=== PATIENT | female | born 1960 | race Caucasian/White ===

== ENCOUNTER 2020-02-22 18:20 | Emergency (ER) | payer MEDICARE, MEDICAID, SELFPAY ==
--- NOTE | 2020-02-22 | XR_ITS ---
EXAMINATION: XR CHEST CLINICAL INFORMATION: Drug overdose COMPARISON: None TECHNIQUE: Frontal view of the chest was obtained. FINDINGS: No significant abnormality is noted involving the heart, lungs, mediastinum, bony thorax or soft tissues. Bibasilar minimal atelectasis is present. IMPRESSION: No acute intrathoracic disease.
--- NOTE | 2020-02-22 | ECG_ITS ---
Test Reason : OVERDOSE Blood Pressure : / mmHG Vent. Rate : 076 BPM Atrial Rate : 076 BPM P-R Int : 150 ms QRS Dur : 078 ms QT Int : 382 ms P-R-T Axes : 035 049 037 degrees QTc Int : 429 ms Poor data quality, interpretation may be adversely affected Normal sinus rhythm Normal ECG When compared with ECG of 19-APR-2019 09:29, Premature ventricular complexes are no longer Present Referred By: Curtis Moss Electronically Signed By:NIKKI KNIGHT
[2020-02-22 18:31] VITALS: BP 110/64; BP 111/71; PULSE 86; PULSE 94; RESP 17; TEMP 36.8; O2SAT 94; O2SAT 96; BMI 28.7
--- NOTE | 2020-02-22 19:06 | ED_ITS ---
HPI - Overdose General Chief Complaint: Overdose Stated Complaint: AMS Time Seen by Provider: 02/22/20 19:02 Source: patient and EMS Mode of arrival: EMS History of Present Illness HPI Narrative: patient is a vague and poor historian unable to obtain history From her. As per EMS patient walked to the fire station and stated she took So ma. Will need to continue evaluation. complaint: intentional overdose Onset (ago): hour(s) Intent: unwilling to say Related Data Home Medications Medication Instructions Recorded Confirmed atorvastatin 20 mg PO BEDTIME 02/23/20 02/23/20 divalproex [Depakote ER] 250 mg PO DAILY 02/23/20 02/23/20 Allergies Allergy/AdvReac Type Severity Reaction Status Date / Time codeine [CODEINE] Allergy Mild RASH Verified 02/23/20 00:22 Chantix Allergy Unknown headaches Uncoded 01/10/20 00:00 chantix Allergy Unknown Unknown Uncoded 02/23/20 00:22 Review of Systems Review of Systems: Yes Unobtainable due to mental status [facility] Past Medical History [facility] Narrative: Unable to obtain family history due to altered mental status Medical History Bipolar 1 disorder Social History Social History Alcohol intake: former Smoking Status: Never smoker Use of substances other than those prescribed or required for medical reasons: No Advance Directives: No Advance Directives Information Provided: No Physical Exam Vital Signs and I&O and Narrative: Vital Signs and I&O: Vital Signs Temp 97.6 F 02/22/20 21:53 Pulse 82 02/23/20 01:01 Resp 16 02/23/20 01:01 BP 131/78 02/23/20 01:01 Pulse Ox 99 02/23/20 01:01 Intake & Output 02/22/20 02/22/20 02/23/20 06:59 18:59 06:59 Intake Total 1000 / 1000 Balance 1000 / 1000 Weight 80.739 kg Intake: Intake, IV Amoun t 1000 / 1000 0.9 % Sodium C hloride 1,000 ml 1000 / 1000 @ 999 mls/hr I VCONT .Q1H1M KALANI Rx#:[id number] Body Mass Index 28.7 vital signs reviewed Const: Other: slow to arouse General: lethargic Nutritional Appearance: obese Orientation/consciousness: lethargic HENMT: Head: Yes normal to inspection Mouth: Normal oral and palatal mucosa present Eyes: Pupils: Equal, round and reactive pupils present EOM: EOMs intact bilaterally Neck: Neck: Yes normal visual inspection Chest: Chest palpation & inspection: normal inspection of the chest Resp: Effort & Inspection: normal respiratory effort, normal respiratory pattern, no audible wheezes and decreased respiratory effort Cardio: Jugular venous distension: no JVD Rhythm: regular rhythm Heart sounds: no gallops and no murmurs Peripheral pulses: Peripheral pulses 2+ t hroughout GI: Inspection: Yes normal to inspection Back/Spine/Pelvis: Thoracic/Lumbar Spine: thoracic and lumbar spine normal to inspection Skin: Rashes: no rashes Wounds: no wounds Neuro: Other: patient needed arousing with stimulus. But once awake patient is able to look at me in follow me however is not responding to questions. She is following simple commands. Cranial nerves: Yes Equal, round and reactive pupils present Comatose Patient: No decerebrate rigidity and No decorticate rigidity Pupils: Normal pupillary reactivity/response: bilateral and Dilated: bilateral Extrem: Right upper extremity: normal to inspection Psych: Appearance: disheveled Course Course Hospital Course: Differential diagnosis includes electrolyte abnormality renal failure Reevaluation(s) Reevaluation #1: throughout ER stay patient mental status improved. 4 hour Tylenol levels negative. Will need to stay and see crisis for overdose patient denies suicidal to me however with overdose will need to evaluated Time: 00:35 MDM - Overdose Lab Data Attestation: I reviewed the patient's lab results. Result diagrams: 02/22/20 19:56 02/22/20 19:56 Labs: Lab Results 02/22/20 02/22/20 02/22/20 Range/Units 19:56 19:56 19:56 WBC 8.2 (4.8-10.8) X10*3/uL RBC 4.46 (4.20-5.50) X10*6/uL Hgb 13.1 (12.0-16.0) g/dl Hct 40.0 (37-47) % MCV 89.7 (80-98) fL MCH 29.4 (27.0-33.0) pg MCHC 32.8 (31.0-35.0) g/dl RDW 13.4 (11.0-16.0) % Plt Count 294 (160-400) X10*3/uL MPV 12.2 (9.4-12.3) fL Immature Gran % (Auto) 0.1 (0.0-0.4) % Neut % (Auto) 44.5 L (45-73) % Lymph % (Auto) 44.5 H (20-40) % [place] % (Auto) 7.1 (2-11) % Eos % (Auto) 2.8 (0-4) % Baso % (Auto) 1.0 (0-2) % Neut # (Auto) 3.7 (2.0-8.3) X10*3/uL Lymph # (Auto) 3.7 (1.2-4.9) X10*3/uL [place] # (Auto) 0.6 (0.1-1.2) X10*3/uL Eos # (Auto) 0.2 (0.0-0.4) X10*3/uL Baso # (Auto) 0.1 (0.0-0.2) X10*3/uL Abs Immat Gran (auto) 0.01 (0.00-0.03) X10*3/uL Absolute Nucleated RBC 0.000 (0.0-0.012) X10*3/uL Nucleated RBC % (auto) 0.0 (0.0-0.2) /100WBC Hold Blue Top SEE NOTE Sodium 143 (135-145) mmol/L Potassium 3.7 (3.3-5.1) mmol/l Chloride 103 (96-108) mmol/L Carbon Dioxide 28 (22-29) mmol/L Anion Gap 16 (12-20) BUN 14 (9-16) mg/dL Creatinine 1.10 (0.5-1.4) mg/dL Estim Creat Clear Calc 59.7 Estimated GFR 51 POC Glucose (60-115) mg/dL Random Glucose 96 (60-115) mg/dL Lactic Acid (0.5-2.0) mmol/L Calcium 10.2 (8.4-10.2) mg/dL Total Bilirubin 0.7 (0.0-1.0) mg/dL Direct Bilirubin 0.3 (0.0-0.5) mg/dL AST 32 H (5-31) U/L ALT 34 H (0-31) U/L Alkaline Phosphatase 84 (39-117) U/L Ammonia (13-55) umol/L Total Protein 8.1 H (6.5-8.0) g/dL Albumin 5.1 H (3.5-5.0) g/dL Lipase 11 (8-78) U/L Salicylates (15-30) mg/dL Acetaminophen (<30) mcg/mL [place] (0.60-1.20) mmol/L Ethyl Alcohol mg/dL 02/22/20 02/22/20 02/22/20 Range/Units 19:56 19:56 19:56 WBC (4.8-10.8) X10*3/uL RBC (4.20-5.50) X10*6/uL Hgb (12.0-16.0) g/dl Hct (37-47) % MCV (80-98) fL MCH (27.0-33.0) pg MCHC (31.0-35.0) g/dl RDW (11.0-16.0) % Plt Count (160-400) X10*3/uL MPV (9.4-12.3) fL Immature Gran % (Auto) (0.0-0.4) % Neut % (Auto) (45-73) % Lymph % (Auto) (20-40) % [place] % (Auto) (2-11) % Eos % (Auto) (0-4) % Baso % (Auto) (0-2) % Neut # (Auto) (2.0-8.3) X10*3/uL Lymph # (Auto) (1.2-4.9) X10*3/uL [place] # (Auto) (0.1-1.2) X10*3/uL Eos # (Auto) (0.0-0.4) X10*3/uL Baso # (Auto) (0.0-0.2) X10*3/uL Abs Immat Gran (auto) (0.00-0.03) X10*3/uL Absolute Nucleated RBC (0.0-0.012) X10*3/uL Nucleated RBC % (auto) (0.0-0.2) /100WBC Hold Blue Top Sodium (135-145) mmol/L Potassium (3.3-5.1) mmol/l Chloride (96-108) mmol/L Carbon Dioxide (22-29) mmol/L Anion Gap (12-20) BUN (9-16) mg/dL Creatinine (0.5-1.4) mg/dL Estim Creat Clear Calc Estimated GFR POC Glucose (60-115) mg/dL Random Glucose (60-115) mg/dL Lactic Acid 1.1 (0.5-2.0) mmol/L Calcium (8.4-10.2) mg/dL Total Bilirubin (0.0-1.0) mg/dL Direct Bilirubin (0.0-0.5) mg/dL AST (5-31) U/L ALT (0-31) U/L Alkaline Phosphatase (39-117) U/L Ammonia 40 (13-55) umol/L Total Protein (6.5-8.0) g/dL Albumin (3.5-5.0) g/dL Lipase (8-78) U/L Salicylates (15-30) mg/dL Acetaminophen (<30) mcg/mL [place] (0.60-1.20) mmol/L Ethyl Alcohol < 10 mg/dL 02/22/20 02/22/20 02/22/20 Range/Units 19:56 19:56 21:25 WBC (4.8-10.8) X10*3/uL RBC (4.20-5.50) X10*6/uL Hgb (12.0-16.0) g/dl Hct (37-47) % MCV (80-98) fL MCH (27.0-33.0) pg MCHC (31.0-35.0) g/dl RDW (11.0-16.0) % Plt Count (160-400) X10*3/uL MPV (9.4-12.3) fL Immature Gran % (Auto) (0.0-0.4) % Neut % (Auto) (45-73) % Lymph % (Auto) (20-40) % [place] % (Auto) (2-11) % Eos % (Auto) (0-4) % Baso % (Auto) (0-2) % Neut # (Auto) (2.0-8.3) X10*3/uL Lymph # (Auto) (1.2-4.9) X10*3/uL [place] # (Auto) (0.1-1.2) X10*3/uL Eos # (Auto) (0.0-0.4) X10*3/uL Baso # (Auto) (0.0-0.2) X10*3/uL Abs Immat Gran (auto) (0.00-0.03) X10*3/uL Absolute Nucleated RBC (0.0-0.012) X10*3/uL Nucleated RBC % (auto) (0.0-0.2) /100WBC Hold Blue Top Sodium (135-145) mmol/L Potassium (3.3-5.1) mmol/l Chloride (96-108) mmol/L Carbon Dioxide (22-29) mmol/L Anion Gap (12-20) BUN (9-16) mg/dL Creatinine (0.5-1.4) mg/dL Estim Creat Clear Calc Estimated GFR POC Glucose 91 (60-115) mg/dL Random Glucose (60-115) mg/dL Lactic Acid (0.5-2.0) mmol/L Calcium (8.4-10.2) mg/dL Total Bilirubin (0.0-1.0) mg/dL Direct Bilirubin (0.0-0.5) mg/dL AST (5-31) U/L ALT (0-31) U/L Alkaline Phosphatase (39-117) U/L Ammonia (13-55) umol/L Total Protein (6.5-8.0) g/dL Albumin (3.5-5.0) g/dL Lipase (8-78) U/L Salicylates (15-30) mg/dL Acetaminophen 2 (<30) mcg/mL [place] < 0.10 L (0.60-1.20) mmol/L Ethyl Alcohol mg/dL 02/22/20 02/22/20 02/23/20 Range/Units 23:50 23:50 00:01 WBC (4.8-10.8) X10*3/uL RBC (4.20-5.50) X10*6/uL Hgb (12.0-16.0) g/dl Hct (37-47) % MCV (80-98) fL MCH (27.0-33.0) pg MCHC (31.0-35.0) g/dl RDW (11.0-16.0) % Plt Count (160-400) X10*3/uL MPV (9.4-12.3) fL Immature Gran % (Auto) (0.0-0.4) % Neut % (Auto) (45-73) % Lymph % (Auto) (20-40) % [place] % (Auto) (2-11) % Eos % (Auto) (0-4) % Baso % (Auto) (0-2) % Neut # (Auto) (2.0-8.3) X10*3/uL Lymph # (Auto) (1.2-4.9) X10*3/uL [place] # (Auto) (0.1-1.2) X10*3/uL Eos # (Auto) (0.0-0.4) X10*3/uL Baso # (Auto) (0.0-0.2) X10*3/uL Abs Immat Gran (auto) (0.00-0.03) X10*3/uL Absolute Nucleated RBC (0.0-0.012) X10*3/uL Nucleated RBC % (auto) (0.0-0.2) /100WBC Hold Blue Top Sodium (135-145) mmol/L Potassium (3.3-5.1) mmol/l Chloride (96-108) mmol/L Carbon Dioxide (22-29) mmol/L Anion Gap (12-20) BUN (9-16) mg/dL Creatinine (0.5-1.4) mg/dL Estim Creat Clear Calc Estimated GFR POC Glucose 144 H (60-115) mg/dL Random Glucose (60-115) mg/dL Lactic Acid (0.5-2.0) mmol/L Calcium (8.4-10.2) mg/dL Total Bilirubin 0.6 (0.0-1.0) mg/dL Direct Bilirubin 0.2 (0.0-0.5) mg/dL AST 25 (5-31) U/L ALT 25 (0-31) U/L Alkaline Phosphatase 72 (39-117) U/L Ammonia (13-55) umol/L Total Protein 6.6 (6.5-8.0) g/dL Albumin 4.2 (3.5-5.0) g/dL Lipase (8-78) U/L Salicylates < 5.0 L (15-30) mg/dL Acetaminophen 1 (<30) mcg/mL [place] (0.60-1.20) mmol/L Ethyl Alcohol mg/dL ECG Data Attestation: I personally reviewed and interpreted this ECG as follows: Pacemaker model: Normal sinus rhythm at 76 rate. Normal axis. normal QRS. Discharge Plan Discharge Prescriptions: No Action divalproex [Depakote ER] 250 mg Tablet Extended Release 24 Hr 250 mg PO DAILY RF: 0 atorvastatin 20 mg Tablet 20 mg PO BEDTIME RF: 0
[2020-02-22 20:00] VITALS: BP 104/67; PULSE 80; RESP 22; TEMP 36.4; O2SAT 97
[2020-02-22 20:10] LABS: MANUAL DIFF FLAG NO
[2020-02-22 20:12] LABS: Basophils Absolute Auto 0.1 X10*3/uL (0.0-0.2); Eosinophils Absolute Auto 0.2 X10*3/uL (0.0-0.4); Eosinophils Percent Auto 2.8 % (0-4); Hemoglobin 13.1 g/dl (12.0-16.0); Imm Gran Abs Auto 0.01 X10*3/uL (0.00-0.03); Imm Gran Pct Auto 0.1 % (0.0-0.4); Lymphocytes Absolute Auto 3.7 X10*3/uL (1.2-4.9); Lymphocytes Percent Auto 44.5 % (20-40); Mean Corpuscular HGB Conc 32.8 g/dl (31.0-35.0); Mean Corpuscular Hemoglobin 29.4 pg (27.0-33.0); Mean Corpuscular Volume 89.7 fL (80-98); Mean Platelet Volume 12.2 fL (9.4-12.3); Monocytes Absolute Auto 0.6 X10*3/uL (0.1-1.2); Monocytes Percent Auto 7.1 % (2-11); Neutrophils Absolute Auto 3.7 X10*3/uL (2.0-8.3); Neutrophils Percent Auto 44.5 % (45-73); Platelet Count 294 X10*3/uL (160-400); Red Blood Count 4.46 X10*6/uL (4.20-5.50); Red Cell Distribution Width 13.4 % (11.0-16.0); White Blood Count 8.2 X10*3/uL (4.8-10.8)
[2020-02-22] MEDS: 0.9 % Sodium Chloride 1,000 ML 999 ML IVCONT (20:13)
--- NOTE | 2020-02-22 20:32 | PC.NURSE ---
iv inserted by ems right arm patient and benign
[2020-02-22 20:42] LABS: Ethanol < 10 mg/dL; Lactic Acid 1.1 mmol/L (0.5-2.0)
[2020-02-22 20:45] LABS: Acetaminophen LAB 2 mcg/mL (<30)
[2020-02-22 20:46] LABS: Alanine Aminotransferase 34 U/L (0-31); Albumin Level 5.1 g/dL (3.5-5.0); Alkaline Phosphatase 84 U/L (39-117); Anion Gap 16 (12-20); Aspartate Amino Transferase 32 U/L (5-31); Bilirubin Direct 0.3 mg/dL (0.0-0.5); Bilirubin Total 0.7 mg/dL (0.0-1.0); Blood Urea Nitrogen 14 mg/dL (9-16); Calcium 10.2 mg/dL (8.4-10.2); Carbon Dioxide 28 mmol/L (22-29); Chloride 103 mmol/L (96-108); Creatinine Clr Calc Pharmacy 59.7; Estimated Glomerular Filt Rate 51; Glucose Random 96 mg/dL (60-115); Lipase 11 U/L (8-78); Potassium 3.7 mmol/l (3.3-5.1); Sodium 143 mmol/L (135-145); Total Protein 8.1 g/dL (6.5-8.0)
[2020-02-22 20:49] LABS: Ammonia 40 umol/L (13-55)
[2020-02-22 21:30] LABS: Glucose, Whole Blood 91 mg/dL (60-115)
[2020-02-22 21:53] VITALS: BP 117/76; PULSE 68; RESP 20; TEMP 36.4; O2SAT 99
[2020-02-22 22:30] LABS: Lithium < 0.10 mmol/L (0.60-1.20)
--- NOTE | 2020-02-22 22:57 | PC.NURSE ---
pt arrousable, has had a sandwhich with no difficulty. vitals stable. sat 95% on room air. hr 63 rr even and reg. pt repostitioned. pt states she is tired due to broken up sleep.
[2020-02-22 23:00] VITALS: BP 91/56; PULSE 66; RESP 14; O2SAT 95
[2020-02-23 00:06] LABS: Glucose, Whole Blood 144 mg/dL (60-115)
[2020-02-23 00:27] LABS: Acetaminophen LAB 1 mcg/mL (<30); Alanine Aminotransferase 25 U/L (0-31); Albumin Level 4.2 g/dL (3.5-5.0); Alkaline Phosphatase 72 U/L (39-117); Aspartate Amino Transferase 25 U/L (5-31); Bilirubin Direct 0.2 mg/dL (0.0-0.5); Bilirubin Total 0.6 mg/dL (0.0-1.0); Salicylate < 5.0 mg/dL (15-30); Total Protein 6.6 g/dL (6.5-8.0)
[2020-02-23 01:01] VITALS: BP 131/78; PULSE 82; RESP 16; O2SAT 99
--- NOTE | 2020-02-23 01:41 | PC.NURSE ---
Faxed to [facility] for evaluation.
--- NOTE | 2020-02-23 02:18 | PC.NURSE ---
[facility] received the fax. Per Hai, will be evaluated in the am.
[2020-02-23 02:21] VITALS: BP 143/74; PULSE 83; RESP 16; TEMP 36.4; O2SAT 98
--- NOTE | 2020-02-23 02:23 | PC.NURSE ---
Pt will be moved to . Report given to Lia from meaghan Gonzales RN. Pt changed over.
[2020-02-23 02:37] VITALS: BP 125/67; PULSE 83; RESP 16; TEMP 36.9; O2SAT 97
[2020-02-23 04:00] VITALS: RESP 16
--- NOTE | 2020-02-23 04:33 | PC.NURSE ---
pt sleeping at this time, awaiting N eval.
[2020-02-23 06:34] VITALS: BP 113/78; PULSE 70; RESP 16; TEMP 36.1; O2SAT 98
--- NOTE | 2020-02-23 06:58 | PC.NURSE ---
Report received. PT is awake and sitting eating breakfast. Calm and cooperative. Waiting to be seen by N.
[2020-02-23 09:06] VITALS: BP 126/56; PULSE 82; RESP 16; TEMP 37.1; O2SAT 97
--- NOTE | 2020-02-23 09:35 | PC.NURSE ---
PT is sitting in bed, calm and cooperative. She inquired about morning meds. Informed PT we are waiting on orders from MD. No other complaints.
== END 2020-02-23 11:47 | disposition home or self-care (01) ==
PROVIDERS: Emergency Provider Emergency Medicine; PCP Physician Assistant
DX: T42.8X2A Poisoning by antiparkinsonism drugs and other central muscle-tone depressants, intentional self-harm, initial encounter (principal); R53.83 Other fatigue; Y92.414 Local residential or business street as the place of occurrence of the external cause; F31.9 Bipolar disorder, unspecified; F41.9 Anxiety disorder, unspecified; F17.200 Nicotine dependence, unspecified, uncomplicated; Z79.899 Other long term (current) drug therapy
CPT/HCPCS: 36415; 71045; 80048; 80076; 80178; 80320; 82140; 82947; 83605; 83690; 85025; 93005; 93010; 96360; 99285; G0480

== ENCOUNTER → 2020-04-03 09:03 | Outpatient (BNVA) | payer MEDICARE, MEDICAID, SELFPAY | PROVIDERS: PCP Physician Assistant; Visit Provider Family Medicine Adult Medicine | DX: M54.16 Radiculopathy, lumbar region (principal); Z79.891 Long term (current) use of opiate analgesic | CPT/HCPCS: 99212 ==

== ENCOUNTER 2020-05-01 13:58 | Outpatient (REF) | payer MEDICARE, MEDICAID, SELFPAY ==
[2020-05-01 15:53] LABS: Alanine Aminotransferase 29 U/L (0-31); Albumin Level 4.2 g/dL (3.5-5.0); Alkaline Phosphatase 98 U/L (39-117); Anion Gap 14 (12-20); Aspartate Amino Transferase 31 U/L (5-31); Bilirubin Total 0.3 mg/dL (0.0-1.0); Blood Urea Nitrogen 8 mg/dL (9-16); Calcium 8.3 mg/dL (8.4-10.2); Carbon Dioxide 28 mmol/L (22-29); Chloride 101 mmol/L (96-108); Cholesterol 227 mg/dL; Estimated Glomerular Filt Rate > 60; Glucose Fasting 112 mg/dL (60-99); HDL Cholesterol 46 mg/dL; LDL Cholesterol Calculated 156 mg/dl; Potassium 3.9 mmol/l (3.3-5.1); Sodium 139 mmol/L (135-145); Total Protein 7.1 g/dL (6.5-8.0); Triglycerides 128 mg/dL
[2020-05-01 16:13] LABS: TSH reflex Free T4 1.18 mIU/mL (0.32-4.0)
== END 2020-05-01 13:59 | disposition home or self-care (01) ==
LOC: HO.LAB 13:58
PROVIDERS: PCP Physician Assistant; Visit Provider Family Medicine Adult Medicine
DX: M54.16 Radiculopathy, lumbar region (principal)
CPT/HCPCS: 80053; 80061; 84443; 99212

== ENCOUNTER → 2020-07-03 13:57 | Outpatient (BNVA) | payer MEDICARE, MEDICAID, SELFPAY | PROVIDERS: PCP Physician Assistant; Referring Provider Physician Assistant; Visit Provider Family Medicine Adult Medicine | DX: M54.16 Radiculopathy, lumbar region (principal) | CPT/HCPCS: Q3014 ==

== ENCOUNTER → 2020-08-28 13:03 | Outpatient (BNVA) | payer MEDICARE, MEDICAID, SELFPAY | PROVIDERS: PCP Physician Assistant; Visit Provider Family Medicine Adult Medicine | DX: M54.16 Radiculopathy, lumbar region (principal) | CPT/HCPCS: Q3014 ==

== ENCOUNTER → 2020-10-21 12:58 | Outpatient (BNVA) | payer MEDICARE, MEDICAID, SELFPAY | PROVIDERS: PCP Physician Assistant; Visit Provider Family Medicine Adult Medicine | DX: M54.16 Radiculopathy, lumbar region (principal); F11.20 Opioid dependence, uncomplicated; Z79.899 Other long term (current) drug therapy | CPT/HCPCS: 99212 ==

== ENCOUNTER 2021-03-16 06:02 | Emergency (ER) | payer MEDICARE, MEDICAID, SELFPAY ==
--- NOTE | ~2021-03-16 | CT_ITS ---
EXAMINATION: CT ABDOMEN AND PELVIS WITHOUT CONTRAST CLINICAL INFORMATION: Pulsatile mass mid abdomen and abdominal pain COMPARISON: None TECHNIQUE: Multidetector volumetric imaging was performed from the superior aspect of the liver through the pubic symphysis. Sagittal and coronal reformatted images were obtained on the technologist's workstation. This CT examination was performed using dose optimization techniques as appropriate, variously including the following: *Automated exposure control *Adjustment of mA and/or kV according to patient size (this includes techniques or standardized protocols for targeted exams where dose is matched to indication/reason for exam; i.e. extremities or head) *Use of iterative reconstruction technique DLP: 830 mGy-cm FINDINGS: LUNG BASES: The visualized lung bases are unremarkable. LIVER, GALLBLADDER, AND BILIARY TREE: The liver is normal in size, shape, and attenuation. No focal hepatic lesion or biliary ductal dilatation is present. The gallbladder is unremarkable with no evidence of radiopaque gallstones, gallbladder wall thickening, or obvious pericholecystic inflammatory changes. PANCREAS: Unremarkable. SPLEEN: Unremarkable. ADRENAL GLANDS: Unremarkable. KIDNEYS AND URETERS: There is a 5 mm high attenuation lesion in the upper pole the right kidney probably representing a hyperdense cyst axial image 21 series 3. There is a 2 cm low-attenuation lesion in the lower pole left kidney suggestive of a simple cyst. No imaging follow-up needed. The kidneys are otherwise unremarkable BLADDER: Not optimally distended. GASTROINTESTINAL TRACT: The small and large bowel are unremarkable. The appendix is unremarkable. ABDOMINAL WALL: No significant hernia is appreciated. LYMPH NODES: Normal. VASCULAR: There is evidence of atherosclerotic disease. No aneurysm is seen. PELVIC VISCERA: Unremarkable. OSSEOUS STRUCTURES: There are mild degenerative changes of the spine. CT/CT abdomen pelvis wo con IMPRESSION: Atherosclerotic disease. No aneurysm is seen. Bilateral renal cysts.
[2021-03-16 06:08] VITALS: BP 150/71; PULSE 90; O2SAT 99
[2021-03-16 06:11] VITALS: BP 182/96; PULSE 89; RESP 16; TEMP 37.1; O2SAT 100; BMI 29.7
--- NOTE | 2021-03-16 06:52 | ED.ABDPAIN ---
HPI - Abdominal Pain General Chief Complaint: Abdominal Pain Stated Complaint: epigastric/abd pain Time Seen by Provider: 03/16/21 06:49 Source: patient Mode of arrival: ambulatory Limitations: no limitations History of Present Illness HPI narrative: 60-year-old female came in for evaluation of mid abdominal pain. Pain started 4 days ago, described as feeling but also tile mass in the mid abdomen with no radiation, pain is intermittent, moderate when it is there, pain is worse when she laid down, better with bowel movement, pain is associated with nausea but no vomiting or diarrhea, declined any bleeding with bowel movement. Never had this pain before. Related Data Previous Rx's Medication Instructions Recorded miscellaneous medical supply #1 ea 07/15/20 (Blood Pressure Cuff) ibuprofen 800 mg tablet 800 mg PO TID PRN #90 tab 10/25/20 atorvastatin 10 mg tablet 10 mg PO DAILY 90 Days #90 tab 11/19/20 divalproex 250 mg tablet,extended 250 mg PO DAILY 90 Days #90 tab 02/04/21 release 24 hr lorazepam 1 mg tablet 1 mg PO DAILY 30 Days #30 tab 02/25/21 furosemide 40 mg tablet (Lasix) 40 mg PO DAILY 20 Days #20 tab 03/05/21 lisinopril 20 mg tablet 20 mg PO DAILY 30 Days #30 tab 03/05/21 venlafaxine 37.5 mg 37.5 mg PO DAILY 30 Days #30 cap 03/05/21 capsule,extended release 24 hr (Effexor XR) Allergies Allergy/AdvReac Type Severity Reaction Status Date / Time codeine [CODEINE] Allergy Mild RASH Verified 03/05/21 08:27 varenicline [From Chantix] Allergy Unknown headaches Verified 03/05/21 08:27 Review of Systems Review of Systems All other systems are reviewed and are negative Constitutional: Reports as per HPI and Reports no additional constitutional complaints Eyes: Reports as per HPI and Reports no additional eye complaints Reports system reviewed and no additional complaints, except as documented Cardiovascular: Reports as per HPI and Reports no additional cardiovascular complaints Respiratory: Reports as per HPI and Reports no additional respiratory complaints Gastrointestinal: Reports as per HPI and Reports no additional gastrointestinal complaints Genitourinary: Reports no additional female genitourinary complaints Musculoskeletal: Reports no additional musculoskeletal complaints Skin/Breast: Reports system reviewed and no additional complaints, except as docu Psychiatric: Reports no additional psychiatric complaints Endocrine: Reports no additional endocrine complaints Hematologic/Lymphatic: Reports no additional hematologic/lymphatic complaints Allergic/Immunologic: Reports no additional allergic/immunologic complaints Reports system reviewed and no additional complaints, except as documented and Reports Abnormal speech present Physical Exam Vital Signs: Vital Signs: Last Vital Signs Temp 98.7 F 03/16/21 08:38 Pulse 73 03/16/21 08:38 Resp 18 03/16/21 08:38 BP 142/78 H 03/16/21 08:38 Pulse Ox 98 03/16/21 08:38 Body Mass Index 29.7 Vital signs have been reviewed as appeared to be correct. Blood pressure elevated. Heart rate normal. Respiration rate normal. Temperature normal. Oxygen saturation normal. Appearance: Alert. Oriented X3. No acute distress. Head: Normal external exam. Normocephalic. Atraumatic. No Narayan signs noted. No raccoon eyes noted Eyes: PERRLA. EOMI. Conjunctiva and sclera normal. Eyelids normal. ENT: TM's Normal. Pharynx normal. Uvula midline. Moist mucous membranes. No trismus noted. No drooling noted. No muffled voice noted. Neck: Normal inspection. Neck supple. FROM. No adenopathy. Thyroid Normal. No meningeal signs. No neck mass noted. CVS: Normal heart rate and rhythm. Heart sound normal. No murmurs noted. Pulses normal throughout. Respiratory: No respiratory distress. Painless inspiration. Breath sounds normal. No wheezes/rales/rhonchi noted. Chest nontender. No accessory muscle usage noted or decreased air movement noted. Abdomen: Soft and nontender. Bowel sounds normal in all 4 quadrants. No distention noted. No organomegaly noted. No visible injury noted. Back: No CVA tenderness. Full range of motion noted. Skin: Skin warm and dry. Normal skin color. Normal skin turgor. No rashes/lesions/lacerations noted. Extremities: No lower extremity edema. Extremities exhibit normal range of motion. Extremities nontender. Neuro: Oriented X 3. Cranial nerve exam: II-XII are grossly intact No motor deficit. No sensory deficit. Reflexes normal. Course Course Course Narrative: Assessment and plan. 60-year-old female came in for evaluation of abdominal pain. 1. CT of the abdomen and pelvis showed no acute pathology intraabdominally. 2. Wbc's in the UA, patient has no dysuria, no frequency urination, no fever, no chills. Patient was instructed to drink plenty of fluids. 3. Mild hypercalcemia with no symptoms, patient was instructed to drink plenty of free water. MDM - Abdominal Pain Medical Records Attestation: I reviewed the patient's medical records. Lab Data Attestation: I reviewed the patient's lab results. Result diagrams: 03/16/21 07:41 03/16/21 07:42 Labs: Lab Results 03/16/21 03/16/21 03/16/21 Range/Units 07:41 07:42 07:43 WBC 9.4 (4.8-10.8) X10*3/uL RBC 5.18 (4.20-5.50) X10*6/uL Hgb 15.1 (12.0-16.0) g/dl Hct 47.0 (37-47) % MCV 90.7 (80-98) fL MCH 29.2 (27.0-33.0) pg MCHC 32.1 (31.0-35.0) g/dl RDW 13.6 (11.0-16.0) % Plt Count 435 H D (160-400) X10*3/uL MPV 10.8 (9.4-12.3) fL Immature Gran % (Auto) 0.1 (0.0-0.4) % Neut % (Auto) 68.3 (45-73) % Lymph % (Auto) 24.4 (20-40) % [place] % (Auto) 4.8 (2-11) % Eos % (Auto) 1.3 (0-4) % Baso % (Auto) 1.1 (0-2) % Lymph # (Auto) 2.3 (1.2-4.9) X10*3/uL [place] # (Auto) 0.5 (0.1-1.2) X10*3/uL Eos # (Auto) 0.1 (0.0-0.4) X10*3/uL Baso # (Auto) 0.1 (0.0-0.2) X10*3/uL Abs Immat Gran (auto) 0.01 (0.00-0.03) X10*3/uL Absolute Neuts (auto) 6.4 (2.0-8.3) X10*3/uL Absolute Nucleated RBC 0.000 (0.0-0.012) X10*3/uL Nucleated RBC % (auto) 0.0 (0.0-0.2) /100WBC Sodium 142 (135-145) mmol/L Potassium 4.9 (3.3-5.1) mmol/L Chloride 104 (96-108) mmol/L Carbon Dioxide 27 (22-29) mmol/L Anion Gap 16 (12-20) BUN 12 (9-16) mg/dL Creatinine 0.93 (0.5-1.4) mg/dL Estim Creat Clear Calc 73.4 Estimated GFR > 60 Random Glucose 121 H (60-115) mg/dL Calcium 10.7 H D (8.4-10.2) mg/dL Lipase 30 (8-78) U/L Urine Color YELLOW Urine Appearance CLOUDY Urine pH 6.5 (5.0-8.0) Ur Specific [place] >= 1.030 H (1.005-1.025) Urine Protein 1+ H (NEG-TRACE) MG/DL Urine Glucose (UA) NEG (NEG) MG/DL Urine Ketones NEG (NEG) MG/DL Urine Blood NEG (NEG) Urine Nitrite NEG (NEG) Ur Leukocyte Esterase TRACE H (NEG) Urine RBC 1-4 (0) /HPF Urine WBC 5-9 H (0-4) /HPF Ur Squamous Epith Cells 3+ /LPF Amorphous Sediment 1+ /LPF Urine Bacteria 1+ /LPF Urine Test (NEGATIVE) 03/16/21 Range/Units 07:43 WBC (4.8-10.8) X10*3/uL RBC (4.20-5.50) X10*6/uL Hgb (12.0-16.0) g/dl Hct (37-47) % MCV (80-98) fL MCH (27.0-33.0) pg MCHC (31.0-35.0) g/dl RDW (11.0-16.0) % Plt Count (160-400) X10*3/uL MPV (9.4-12.3) fL Immature Gran % (Auto) (0.0-0.4) % Neut % (Auto) (45-73) % Lymph % (Auto) (20-40) % [place] % (Auto) (2-11) % Eos % (Auto) (0-4) % Baso % (Auto) (0-2) % Lymph # (Auto) (1.2-4.9) X10*3/uL [place] # (Auto) (0.1-1.2) X10*3/uL Eos # (Auto) (0.0-0.4) X10*3/uL Baso # (Auto) (0.0-0.2) X10*3/uL Abs Immat Gran (auto) (0.00-0.03) X10*3/uL Absolute Neuts (auto) (2.0-8.3) X10*3/uL Absolute Nucleated RBC (0.0-0.012) X10*3/uL Nucleated RBC % (auto) (0.0-0.2) /100WBC Sodium (135-145) mmol/L Potassium (3.3-5.1) mmol/L Chloride (96-108) mmol/L Carbon Dioxide (22-29) mmol/L Anion Gap (12-20) BUN (9-16) mg/dL Creatinine (0.5-1.4) mg/dL Estim Creat Clear Calc Estimated GFR Random Glucose (60-115) mg/dL Calcium (8.4-10.2) mg/dL Lipase (8-78) U/L Urine Color Urine Appearance Urine pH (5.0-8.0) Ur Specific [place] (1.005-1.025) Urine Protein (NEG-TRACE) MG/DL Urine Glucose (UA) (NEG) MG/DL Urine Ketones (NEG) MG/DL Urine Blood (NEG) Urine Nitrite (NEG) Ur Leukocyte Esterase (NEG) Urine RBC (0) /HPF Urine WBC (0-4) /HPF Ur Squamous Epith Cells /LPF Amorphous Sediment /LPF Urine Bacteria /LPF Urine Test NEGATIVE (NEGATIVE) Imaging Data CT scan - abdomen: Radiologist's impression: Atherosclerotic disease. No aneurysm is seen. Bilateral renal cysts. Discharge Plan Discharge Clinical Impression: Abdominal pain, Hypercalcemia Patient Disposition: Home, Self-Care Instructions: Abdominal Pain (ED) Additional Instructions: Drink plenty of fluids. Prescriptions: No Action ibuprofen 800 mg tablet 800 mg PO TID PRN (Reason: for pain) Qty: 90 RF: 2 atorvastatin 10 mg tablet 10 mg PO DAILY 90 Days Qty: 90 RF: 1 divalproex 250 mg tablet extended release 24 hr 250 mg PO DAILY 90 Days Qty: 90 RF: 2 lorazepam 1 mg tablet 1 mg PO DAILY 30 Days Qty: 30 RF: 1 venlafaxine [Effexor XR] 37.5 mg capsule,extended release 24hr 37.5 mg PO DAILY 30 Days Qty: 30 RF: 3 lisinopril 20 mg tablet 20 mg PO DAILY 30 Days Qty: 30 RF: 3 furosemide [Lasix] 40 mg tablet 40 mg PO DAILY 20 Days Qty: 20 RF: 0 (DME) Blood Pressure Cuff Misc See Rx Instructions .ROUTE .MEDSUPPLY Qty: 1 RF: 0 Referrals: Narayan Clifton PA-C [Primary Care Provider] - 2 days PMF[facility] Past Medical History Medical History Anxiety Bipolar 1 disorder Depression History of chronic back pain History of opioid abuse Hx of alopecia Hyperlipidemia Opioid dependence Right lumbar radiculopathy Surgical History History of carpal tunnel release of both wrists History of oral surgery Hx of tubal ligation Family History Family History Father No problems noted. Mother Heart disease Diabetes Social History Social History Housing: House Are you a primary career information specialist to a significant other at home: No Alcohol intake: never Patient Tobacco Use Status: Current everyday Tobacco user Tobacco use type: Cigarette e-Cigarette/Vaping Use: Never Used Second Hand Smoke Exposure: No Use of substances other than those prescribed or required for medical reasons: No Advance Directives: No Advance Directives Information Provided: No service: No Current occupational status: unemployed
[2021-03-16 07:44] VITALS: BP 139/78; PULSE 79; RESP 17; O2SAT 98
[2021-03-16 07:52] LABS: MANUAL DIFF FLAG NO
[2021-03-16] MEDS: 0.9 % Sodium Chloride 1,000 ML 999 ML IVCONT (07:52)
[2021-03-16 07:56] LABS: Basophils Absolute Auto 0.1 X10*3/uL (0.0-0.2); Basophils Percent Auto 1.1 % (0-2); Eosinophils Absolute Auto 0.1 X10*3/uL (0.0-0.4); Eosinophils Percent Auto 1.3 % (0-4); Hemoglobin 15.1 g/dl (12.0-16.0); Imm Gran Abs Auto 0.01 X10*3/uL (0.00-0.03); Imm Gran Pct Auto 0.1 % (0.0-0.4); Lymphocytes Absolute Auto 2.3 X10*3/uL (1.2-4.9); Lymphocytes Percent Auto 24.4 % (20-40); Mean Corpuscular HGB Conc 32.1 g/dl (31.0-35.0); Mean Corpuscular Hemoglobin 29.2 pg (27.0-33.0); Mean Corpuscular Volume 90.7 fL (80-98); Mean Platelet Volume 10.8 fL (9.4-12.3); Monocytes Absolute Auto 0.5 X10*3/uL (0.1-1.2); Monocytes Percent Auto 4.8 % (2-11); Neutrophils Absolute Auto 6.4 X10*3/uL (2.0-8.3); Neutrophils Percent Auto 68.3 % (45-73); Platelet Count 435 X10*3/uL (160-400); Red Blood Count 5.18 X10*6/uL (4.20-5.50); Red Cell Distribution Width 13.6 % (11.0-16.0); White Blood Count 9.4 X10*3/uL (4.8-10.8)
[2021-03-16 07:59] LABS: Appearance Urine CLOUDY; Color Urine YELLOW; Glucose Urine UA NEG (NEG); Leukocyte Esterase Urine TRACE (NEG); Nitrite Urine NEG (NEG); PH 6.5 (5.0-8.0); Specific Gravity - Urine >= 1.030 (1.005-1.025); UACC Culture Trigger YES; Urine Blood NEG (NEG); Urine Ketones NEG (NEG); Urine Protein 1+ MG/DL (NEG-TRACE)
[2021-03-16 08:04] LABS: UPreg QC Valid YES; Urine Pregnancy NEGATIVE (NEGATIVE)
[2021-03-16 08:09] LABS: Bacteria Urine 1+ /LPF; Squamous Epithelial Cell Urine 3+ /LPF
[2021-03-16 08:10] LABS: Amorphous Sediment Urine 1+ /LPF
[2021-03-16 08:21] LABS: Anion Gap 16 (12-20); Blood Urea Nitrogen 12 mg/dL (9-16); Calcium 10.7 mg/dL (8.4-10.2); Carbon Dioxide 27 mmol/L (22-29); Chloride 104 mmol/L (96-108); Creatinine Clr Calc Pharmacy 73.4; Estimated Glomerular Filt Rate > 60; Glucose Random 121 mg/dL (60-115); Lipase 30 U/L (8-78); Potassium 4.9 mmol/L (3.3-5.1); Sodium 142 mmol/L (135-145)
[2021-03-16 08:38] VITALS: BP 142/78; PULSE 73; RESP 18; TEMP 37.1; O2SAT 98
== END 2021-03-16 09:17 | disposition home or self-care (01) ==
PROVIDERS: Emergency Provider Emergency Medicine; PCP Physician Assistant
DX: R10.9 Unspecified abdominal pain (principal); E83.52 Hypercalcemia
CPT/HCPCS: 36415; 74176; 80048; 81001; 81003; 81025; 83690; 85025; 87086; 96360; 99284

== ENCOUNTER → 2021-10-22 11:05 | Outpatient (BNVA) | payer MEDICARE, MEDICAID, SELFPAY | PROVIDERS: PCP Physician Assistant; Referring Provider Physician Assistant; Visit Provider Internal Medicine Cardiovascular Disease | DX: R60.0 Localized edema (principal); I10 Essential (primary) hypertension | CPT/HCPCS: 93005; 99202 ==

== ENCOUNTER 2022-07-09 06:23 | Outpatient (REF) | payer MEDICARE, MEDICAID, SELFPAY ==
[2022-07-09 08:20] LABS: Appearance Urine Turbid; Color Urine Yellow; Glucose Urine UA Negative (Negative); Leukocyte Esterase Urine Large (3+) (Negative); Nitrite Urine Negative (Negative); PH 6.5 (5.0-9.0); Specific Gravity - Urine 1.015 (1.005-1.025); UMIC TRIGGER UACC YES; Urine Blood Small (1+) (Negative); Urine Ketones Negative (Negative); Urine Protein 30 (1+) mg/dL (Neg-Trace)
[2022-07-09 08:25] LABS: Bacteria Urine 4+ (None Seen); Hyaline Casts Urine 0-2 /LPF (0-2); Squamous Epithelial Cell Urine >20 /HPF (0-2); UACC Culture Trigger YES; WBC Urine >50 /HPF (0-5)
== END 2022-07-09 06:24 | disposition home or self-care (01) ==
LOC: HO.LAB 06:23
PROVIDERS: PCP Physician Assistant; Visit Provider Physician Assistant
DX: F33.1 Major depressive disorder, recurrent, moderate (principal); R39.9 Unspecified symptoms and signs involving the genitourinary system
CPT/HCPCS: 81001; 81003; 87086; 87088; 87186

== ENCOUNTER 2022-08-25 09:12 | Outpatient (REF) | payer MEDICARE, MEDICAID, SELFPAY ==
[2022-08-25 09:26] LABS: MANUAL DIFF FLAG NO
[2022-08-25 10:26] LABS: Basophils Absolute Auto 0.1 X10*3/uL (0.0-0.2); Basophils Percent Auto 1.3 % (0-2); Eosinophils Absolute Auto 0.2 X10*3/uL (0.0-0.4); Eosinophils Percent Auto 4.6 % (0-4); Hematocrit 40.2 % (37.0-47.0); Hemoglobin 12.7 g/dl (12.0-16.0); Imm Gran Abs Auto 0.02 X10*3/uL (0.00-0.03); Imm Gran Pct Auto 0.4 % (0.0-0.4); Lymphocytes Absolute Auto 1.7 X10*3/uL (1.2-4.9); Lymphocytes Percent Auto 31.4 % (20-40); Mean Corpuscular HGB Conc 31.6 g/dl (31.0-35.0); Mean Corpuscular Hemoglobin 29.4 pg (27.0-33.0); Mean Corpuscular Volume 93.1 fL (80.0-98.0); Mean Platelet Volume 11.8 fL (9.4-12.3); Monocytes Absolute Auto 0.3 X10*3/uL (0.1-1.2); Monocytes Percent Auto 5.1 % (2-11); Neutrophils Percent Auto 57.2 % (45-73); Platelet Count 343 X10*3/uL (160-400); Red Blood Count 4.32 X10*6/uL (4.20-5.50); Red Cell Distribution Width 13.1 % (11.0-16.0); White Blood Count 5.3 X10*3/uL (4.8-10.8)
[2022-08-25 10:59] LABS: Appearance Urine Cloudy; Color Urine Yellow; Glucose Urine UA Negative (Negative); Leukocyte Esterase Urine Small (1+) (Negative); Nitrite Urine Negative (Negative); PH 5.5 (5.0-9.0); Specific Gravity - Urine 1.015 (1.005-1.025); UMIC TRIGGER UACC YES; Urine Blood Small (1+) (Negative); Urine Ketones Negative (Negative); Urine Protein Negative (Neg-Trace)
[2022-08-25 11:01] LABS: Valproate 22.6 mcg/mL (50.0-100.0)
[2022-08-25 11:17] LABS: Bacteria Urine 1+ (None Seen); Hyaline Casts Urine 0-2 /LPF (0-2); RBC Urine 0-2 /HPF (0-2); Squamous Epithelial Cell Urine >20 /HPF (0-2); UACC Culture Trigger YES
[2022-08-25 11:37] LABS: Alanine Aminotransferase 19 U/L (0-31); Albumin Level 4.6 g/dL (3.5-5.0); Alkaline Phosphatase 88 U/L (39-117); Anion Gap 14 (12-20); Aspartate Amino Transferase 21 U/L (5-31); Bilirubin Total 0.3 mg/dL (0.0-1.0); Blood Urea Nitrogen 19 mg/dL (9-16); Calcium 9.5 mg/dL (8.4-10.2); Carbon Dioxide 23 mmol/L (22-29); Chloride 111 mmol/L (96-108); Cholesterol 224 mg/dL; Estimated Glomerular Filt Rate 47; Folate 16.7 ng/mL (> or = 4.0); Free T4 (Free Thyroxine) 0.77 ng/dL (0.71-1.85); Glucose Random 116 mg/dL (60-115); HDL Cholesterol 28 mg/dL; LDL Cholesterol Calculated 153 mg/dl; Potassium 4.9 mmol/L (3.3-5.1); Sodium 143 mmol/L (135-145); Total Protein 7.6 g/dL (6.5-8.0); Triglycerides 219 mg/dL; Vitamin B12 422 pg/mL (200-900); Vitamin D 25-OH Total 10.3 ng/mL (>30)
== END 2022-08-25 09:13 | disposition home or self-care (01) ==
LOC: HO.LAB 09:12
PROVIDERS: Absent Provider Internal Medicine; PCP Physician Assistant; Visit Provider Physician Assistant
DX: F11.20 Opioid dependence, uncomplicated (principal); F33.1 Major depressive disorder, recurrent, moderate; E78.00 Pure hypercholesterolemia, unspecified; R82.90 Unspecified abnormal findings in urine; R39.9 Unspecified symptoms and signs involving the genitourinary system
CPT/HCPCS: 36415; 80053; 80061; 80164; 81001; 81003; 82306; 82607; 82746; 84439; 84443; 85025; 87086; 99202

== ENCOUNTER → 2022-09-13 10:31 | Outpatient (BNVA) | payer MEDICARE, MEDICAID, SELFPAY | PROVIDERS: PCP Physician Assistant; Visit Provider Nurse Practitioner Psychiatric/Mental Health | DX: Z51.81 Encounter for therapeutic drug level monitoring (principal); F11.20 Opioid dependence, uncomplicated | CPT/HCPCS: 80305; 99212 ==

== ENCOUNTER → 2022-09-28 11:28 | Outpatient (BNVA) | payer MEDICARE, MEDICAID, SELFPAY | PROVIDERS: PCP Physician Assistant; Visit Provider Nurse Practitioner Psychiatric/Mental Health | DX: F11.20 Opioid dependence, uncomplicated (principal); F17.210 Nicotine dependence, cigarettes, uncomplicated; Z51.81 Encounter for therapeutic drug level monitoring; Z79.899 Other long term (current) drug therapy | CPT/HCPCS: 99212 ==

== ENCOUNTER 2022-10-04 10:56 | Emergency (ER) | payer MEDICARE, MEDICAID, SELFPAY ==
[2022-10-04 11:41] VITALS: BP 173/88; PULSE 75; RESP 18; TEMP 36.8; O2SAT 95; BMI 33.0
--- NOTE | 2022-10-04 11:41 | ED.SKABFB ---
HPI - Skin/Abscess/Foreign Bdy General Chief complaint: General Medical Stated complaint: Rash Time Seen by Provider: 10/04/22 11:44 Source: patient Mode of arrival: ambulatory Limitations: no limitations History of Present Illness HPI narrative: 61yo female here with painful, itching, burning rash to right shoulder x 4 days. No fevers, chills, flu-like symptoms. No rash elsewhere. No vomiting, diarrhea, abdominal pain, headache, neck pain or neck stiffness. Related Data Home Medications Medication Instructions Recorded Confirmed furosemide 40 mg tablet (Lasix) 40 mg PO DAILY PRN 10/22/21 08/25/22 Previous Rx's Medication Instructions Recorded miscellaneous medical supply #1 ea 07/15/20 (Blood Pressure Cuff) divalproex 250 mg tablet,extended 250 mg PO DAILY 90 days #90 tabs 01/16/22 release 24 hr lisinopril 20 mg tablet 20 mg PO DAILY 90 days #90 tabs 01/16/22 nicotine (polacrilex) 2 mg buccal 2 mg buccal Q8H PRN nicotine 03/09/22 lozenge (Nicorette) cravings 30 days #108 ea omeprazole 20 mg capsule,delayed 20 mg PO DAILY 90 days #90 caps 03/16/22 release clonazepam 1 mg tablet 1 mg PO DAILY 30 days #30 tabs 08/16/22 ibuprofen 800 mg tablet 800 mg PO TID PRN for pain #90 tabs 08/16/22 naloxone 4 mg/actuation nasal 4 mg intranasal Q2M PRN opioid 08/25/22 spray (Narcan) overdose #2 ea nitrofurantoin 100 mg PO Q12H 5 days #10 caps 08/25/22 monohydrate/macrocrystals 100 mg capsule (Macrobid) atorvastatin 10 mg tablet 10 mg PO DAILY 90 days #90 tabs 09/05/22 buprenorphine 8 mg-naloxone 2 mg 1 film sublingual DAILY #21 ea 09/28/22 sublingual film (Suboxone) valacyclovir 1 gram tablet 1,000 mg PO BID #14 tabs 10/04/22 (Valtrex) Allergies Allergy/AdvReac Type Severity Reaction Status Date / Time codeine [CODEINE] Allergy Mild RASH Verified 10/04/22 11:40 varenicline [From Chantix] Allergy Unknown headaches Verified 10/04/22 11:40 venlafaxine [From Effexor] AdvReac Mild gi upset Verified 10/04/22 11:40 Review of Systems Review of Systems: Yes all other systems are reviewed and are negative Constitutional: Constitutional: Reports no additional constitutional complaints, Denies body ache(s), Denies chills, Denies fever(s), Denies headache(s) and Denies weakness Eyes: Eyes: Reports no additional eye complaints and Denies change in vision ENT: Reports system reviewed and no additional complaints, except as documented, Denies dizziness, Denies headache(s), Denies nasal congestion, Denies nasal discharge and Denies neck pain Cardiovascular: Cardiovascular: Reports no additional cardiovascular complaints, Denies chest pain, Denies leg edema and Denies dyspnea Respiratory: Respiratory: Reports no additional respiratory complaints, Denies cough and Denies dyspnea Gastrointestinal: Gastrointestinal: Reports no additional gastrointestinal complaints, Denies abdominal pain, Denies diarrhea, Denies nausea and Denies vomiting Genitourinary: Genitourinary: Reports no additional female genitourinary complaints and Denies urinary incontinence Musculoskeletal: Musculoskeletal: Reports no additional musculoskeletal complaints, Denies back pain, Denies arthralgias, Denies joint swelling, Denies neck pain, Denies numbness and Denies tingling Integumentary/Breasts: Skin/Breast: Reports system reviewed and no additional complaints, except as docu and Reports rash Neurologic: Reports system reviewed and no additional complaints, except as documented, Denies Abnormal speech present, Denies dizziness, Denies headache(s), Denies numbness, Denies tingling and Denies weakness [facility] Past Medical History Attestation statement: The following information was validated with the patient. Source: old records reviewed and nursing notes reviewed Medical History Anxiety Bipolar 1 disorder Depression History of chronic back pain History of opioid abuse Hx of alopecia Hyperlipidemia Opioid dependence Right lumbar radiculopathy Surgical History History of carpal tunnel release of both wrists History of oral surgery Hx of tubal ligation Family History Family History Father No problems noted. Mother Heart disease Diabetes Brother Heart disease Brother Heart disease Sister Diabetes Social History Social History Housing: House Are you a primary day care attendant to a significant other at home: No Alcohol intake: never Patient Tobacco Use Status: Current everyday Tobacco user Tobacco use type: Cigarette Cigarettes Per Day: 3 (3 a month) Years Smoked: 40 +/- e-Cigarette/Vaping Use: Never Used Second Hand Smoke Exposure: No Advance Directives: No Advance Directives Information Provided: Yes service: No Current occupational status: unemployed Cognitive needs: No Hearing needs: No Vision needs: No Physical Exam Vital Signs: Vital Signs: Last Vital Signs Temp 98.2 F 10/04/22 11:41 Pulse 75 10/04/22 11:41 Resp 18 10/04/22 11:41 BP 173/88 H 10/04/22 11:41 Pulse Ox 95 10/04/22 11:41 O2 Del Method Room Air 10/04/22 11:41 BMI result Body Mass Index 33.0 Const: General: cooperative, healthy appearing, comfortable and no acute distress Orientation/consciousness: patient oriented x3 Limitations: no limitations HEENT: Head: Yes normal to inspection Ears: hearing grossly normal bilaterally General nose exam: Normal external nose present Face and sinus: Yes normal facial exam Mouth: Normal oral and palatal mucosa present Throat: Yes posterior oropharynx normal Eyes: General: appearance normal, both eyes and all related structures Pupils: Equal, round and reactive pupils present Neck: Neck: Yes normal visual inspection Chest: Chest palpation & inspection: normal inspection of the chest Resp: Effort & Inspection: normal respiratory effort Auscultation: clear to auscultation bilaterally Cardio: Rate: regular rate Rhythm: regular rhythm Peripheral pulses: Peripheral pulses 2+ throughout GI: Inspection: Yes normal to inspection Palpation (GI): Soft to palpation and nontender Auscultation: normal bowel sounds Back/Spine/Pelvis: Thoracic/Lumbar Spine: thoracic and lumbar spine normal to inspection Skin: General skin exam: no rashes or lesions noted Neuro: General: patient oriented x3, no focal motor deficits and normal sensation to monofilament Cranial nerves: Yes Equal, round and reactive pupils present Cognition (Neuro): normal cognition Speech: No Abnormal speech present Gait exam (Neuro): Normal gait present Motor exam (neuro): 5/5 motor strength present throughout Extrem: Other: To the posterior right shoulder there is a vesicular like rash noted along a single dermatome. Medical Decision Making Medical Decision Making MDM Narrative: 61-year-old female here with rash for 4 days. Rash is consistent with herpes zoster Patient will be treated with Valtrex for 7 days. Pain is under well control Reviewed worrisome signs and symptoms of when to return to the emergency room. Comfortable plan for discharge home Differential Diagnosis Differential Diagnoses: The differential diagnosis associated with the presentation includes Shingles Low concern for SJS, TEN Discharge Plan Discharge Clinical Impression: Shingles Patient Disposition: Home, Self-Care Instructions: Shingles (ED) Prescriptions: New valacyclovir [Valtrex] 1 gram tablet 1,000 mg PO BID Qty: 14 0RF No Action divalproex 250 mg tablet extended release 24 hr 250 mg PO DAILY 90 Days Qty: 90 2RF lisinopril 20 mg tablet 20 mg PO DAILY 90 Days Qty: 90 2RF omeprazole 20 mg capsule,delayed release(DR/EC) 20 mg PO DAILY 90 Days Qty: 90 3RF ibuprofen 800 mg tablet 800 mg PO TID PRN (Reason: for pain) Qty: 90 2RF clonazepam 1 mg tablet 1 mg PO DAILY 30 Days Qty: 30 2RF atorvastatin 10 mg tablet 10 mg PO DAILY 90 Days Qty: 90 1RF (DME) Blood Pressure Cuff Misc See Rx Instructions .ROUTE .MEDSUPPLY Qty: 1 0RF Rx Instructions: As directed nicotine (polacrilex) [Nicorette] 2 mg lozenge 2 mg buccal Q8H PRN (Reason: nicotine cravings) 30 Days Qty: 108 0RF nitrofurantoin monohyd/m-cryst [Macrobid] 100 mg capsule 100 mg PO Q12H 5 Days Qty: 10 0RF Rx Instructions: must administer with a meal/food furosemide [Lasix] 40 mg tablet 40 mg PO DAILY PRN naloxone [Narcan] 4 mg/actuation spray,non-aerosol 4 mg intranasal Q2M PRN (Reason: opioid overdose) Qty: 2 0RF Rx Instructions: spray 1 dose into ONE nostril; alternate nostrils w each dose until help arrives buprenorphine-naloxone [Suboxone] 8-2 mg film 1 film sublingual DAILY Qty: 21 0RF Referrals: Narayan Clifton PA-C [Primary Care Provider] - 1 week Interventions: ED Discharge Assessment Last Done: 10/04/22 11:51 Discharge Date/Time: 10/04/22 11:56
== END 2022-10-04 11:56 | disposition home or self-care (01) ==
PROVIDERS: Emergency Provider Student in an Organized Health Care Education/Training Program; PCP Physician Assistant
DX: B02.8 Zoster with other complications (principal); R21 Rash and other nonspecific skin eruption; M25.511 Pain in right shoulder; Z79.899 Other long term (current) drug therapy; F17.210 Nicotine dependence, cigarettes, uncomplicated; Z71.6 Tobacco abuse counseling
CPT/HCPCS: 99282; 99283

== ENCOUNTER → 2022-10-26 10:05 | Outpatient (BNVA) | payer MEDICARE, MEDICAID, SELFPAY | PROVIDERS: PCP Physician Assistant; Visit Provider Nurse Practitioner Psychiatric/Mental Health | DX: Z51.81 Encounter for therapeutic drug level monitoring (principal); F11.20 Opioid dependence, uncomplicated | CPT/HCPCS: 99212 ==

== ENCOUNTER 2022-11-18 13:57 | Outpatient (REF) | payer OTHER, SELFPAY | END 2022-11-18 13:58 | disposition home or self-care (01) | LOC: HO.LAB 13:57 | PROVIDERS: PCP Physician Assistant; Visit Provider Physician Assistant | DX: Z13.89 Encounter for screening for other disorder (principal) ==

== ENCOUNTER → 2022-11-22 10:08 | Outpatient (BNVA) | payer OTHER, SELFPAY | PROVIDERS: PCP Physician Assistant; Visit Provider Nurse Practitioner Psychiatric/Mental Health | DX: Z51.81 Encounter for therapeutic drug level monitoring (principal); F11.20 Opioid dependence, uncomplicated | CPT/HCPCS: 99212 ==

== ENCOUNTER 2022-12-21 11:03 | Outpatient (AMB) | payer OTHER, SELFPAY ==
[2022-12-21 11:24] VITALS: BP 128/70; PULSE 74; O2SAT 97
--- NOTE | 2022-12-21 11:24 | MHC.OFFVIS ---
Intake Vital Signs 12/21/22 11:24 BP 128/70 Blood Pressure Location Lt radial Pulse 74 Pulse Source Pulse Oximeter Pulse Oximetry (%) 97 Oxygen Delivery Method Room Air Intake Visit Reasons: MAT Visit Intake Note: the patient presents for a mat visit Distributor Sales Manager Required: No Allergies codeine [CODEINE] Allergy (Mild, Verified 12/21/22 11:30) RASH varenicline [From Chantix] Allergy (Unknown, Verified 12/21/22 11:30) headaches venlafaxine [From Effexor] Adverse Reaction (Mild, Verified 12/21/22 11:30) gi upset Do you need a note to return to daycare/school/sports/work: No HPI MAT Visit HPI Details Pt presents for treatment follow up Currently being prescribed Suboxone 8 mg daily Denies any side effects related to medication No questions or concerns at this time. [facility] Medical History Anxiety Bipolar 1 disorder Depression History of chronic back pain History of opioid abuse Hx of alopecia Hyperlipidemia Opioid dependence Right lumbar radiculopathy Surgical History History of carpal tunnel release of both wrists History of oral surgery Hx of tubal ligation Family History Father No problems noted. Mother Heart disease Diabetes Brother Heart disease Brother Heart disease Sister Diabetes Social History Housing: House Are you a primary regular senior care provider to a significant other at home: No Alcohol intake: never Patient Tobacco Use Status: Current everyday Tobacco user Tobacco use type: Cigarette Cigarettes Per Day: 2 (3 a month) Years Smoked: 40 +/- e-Cigarette/Vaping Use: Never Used Second Hand Smoke Exposure: No service: No Current occupational status: unemployed Cognitive needs: No Hearing needs: No Vision needs: No Review of Systems Const Reports as per HPI and Reports no additional complaints Physical Exam Vital Signs: Last Vital Signs Pulse 74 12/21/22 11:24 BP 128/70 12/21/22 11:24 Pulse Ox 97 12/21/22 11:24 Oxygen Delivery Method Room Air 12/21/22 11:24 Const General: cooperative, healthy appearing and no acute distress Psych Appearance: well kempt Thought process: Normal thought process present and Circumstantial thought process present Insight: Good insight present (Psych) Judgement: Good judgement present (Psych) Assessment & Plan Assessment & Plan (1) Opioid dependence: Code(s): F11.20 - Opioid dependence, uncomplicated Qualifiers: Substance use status: uncomplicated Qualified Code(s): F11.20 - Opioid dependence, uncomplicated Plan: Continue Suboxone at current dose-- Follow-up 4 weeks Medications: Refilled buprenorphine-naloxone 8-2 mg (Suboxone) 1 film sublingual DAILY 30 ea 0RF Coding Level of Care Code Est Pt Level 3 (24796) Diagnoses Opioid dependence F11.20 Substance use status: uncomplicated
== END 2022-12-21 11:59 | disposition home or self-care (01) ==
LOC: HO.HCC 11:03
PROVIDERS: PCP Physician Assistant; Visit Provider Nurse Practitioner Psychiatric/Mental Health
DX: F11.20 Opioid dependence, uncomplicated (principal)
CPT/HCPCS: 99213

== ENCOUNTER → 2022-12-21 11:03 | Outpatient (BNVA) | payer OTHER, SELFPAY | PROVIDERS: PCP Physician Assistant; Visit Provider Nurse Practitioner Psychiatric/Mental Health | DX: Z51.81 Encounter for therapeutic drug level monitoring (principal); F11.20 Opioid dependence, uncomplicated | CPT/HCPCS: 99212 ==

== ENCOUNTER 2023-01-25 11:01 | Outpatient (AMB) | payer OTHER, SELFPAY ==
--- NOTE | 2023-01-25 11:04 | MHC.OFFVIS ---
Intake Vital Signs 01/25/23 11:15 BP 146/84 H Blood Pressure Location Lt radial Position Sitting Pulse 76 Pulse Source Pulse Oximeter Pulse Oximetry (%) 98 Oxygen Delivery Method Room Air Comment thinks may have a uti Intake Visit Reasons: MAT Visit Intake Note: the patient presents for a mat visit Vice President Of Recruiting Required: No Allergies codeine [CODEINE] Allergy (Mild, Verified 01/25/23 11:06) RASH varenicline [From Chantix] Allergy (Unknown, Verified 01/25/23 11:06) headaches venlafaxine [From Effexor] Adverse Reaction (Mild, Verified 01/25/23 11:06) gi upset Do you need a note to return to daycare/school/sports/work: No HPI MAT Visit HPI Details Patient presents for follow-up. Currently prescribed Suboxone 8 mg daily. Patient reports she continues do well with this dose. Requesting that brand name films be ordered she feels they have worked better for her. No other issues with medication. [facility] Medical History Anxiety Bipolar 1 disorder Depression History of chronic back pain History of opioid abuse Hx of alopecia Hyperlipidemia Opioid dependence Right lumbar radiculopathy Surgical History History of carpal tunnel release of both wrists History of oral surgery Hx of tubal ligation Family History Father No problems noted. Mother Heart disease Diabetes Brother Heart disease Brother Heart disease Sister Diabetes Social History Housing: House Are you a primary animal care provider to a significant other at home: No Alcohol intake: never Patient Tobacco Use Status: Current everyday Tobacco user Tobacco use type: Cigarette Cigarettes Per Day: 2 (3 a month) Years Smoked: 40 +/- e-Cigarette/Vaping Use: Never Used Second Hand Smoke Exposure: No service: No Current occupational status: unemployed Cognitive needs: No Hearing needs: No Vision needs: No Review of Systems Const Reports as per HPI and Reports no additional complaints Physical Exam Vital Signs: Last Vital Signs Pulse 76 01/25/23 11:15 BP 146/84 H 01/25/23 11:15 Pulse Ox 98 01/25/23 11:15 Oxygen Delivery Method Room Air 01/25/23 11:15 Const General: cooperative, healthy appearing and no acute distress Psych Appearance: well kempt Thought process: Normal thought process present and Circumstantial thought process present Insight: Good insight present (Psych) Judgement: Good judgement present (Psych) Assessment & Plan Assessment & Plan (1) Opioid dependence: Code(s): F11.20 - Opioid dependence, uncomplicated Qualifiers: Substance use status: uncomplicated Qualified Code(s): F11.20 - Opioid dependence, uncomplicated Plan: Continue Suboxone at current dose-- Follow-up 4 weeks Medications: Changed From buprenorphine-naloxone 8-2 mg (Suboxone) 1 film sublingual DAILY 7 ea 0RF To Suboxone 8-2 mg (buprenorphine-naloxone) 1 film sublingual DAILY 30 ea 0RF NS Coding Level of Care Code Est Pt Level 3 (77370) Diagnoses Opioid dependence F11.20 Substance use status: uncomplicated
[2023-01-25 11:15] VITALS: BP 146/84; PULSE 76; O2SAT 98
== END 2023-01-25 11:48 | disposition home or self-care (01) ==
LOC: HO.HCC 11:01
PROVIDERS: PCP Physician Assistant; Visit Provider Nurse Practitioner Psychiatric/Mental Health
DX: F11.20 Opioid dependence, uncomplicated (principal)
CPT/HCPCS: 99213

== ENCOUNTER → 2023-01-25 11:01 | Outpatient (BNVA) | payer OTHER, SELFPAY | PROVIDERS: PCP Physician Assistant; Visit Provider Nurse Practitioner Psychiatric/Mental Health | DX: F11.20 Opioid dependence, uncomplicated (principal) | CPT/HCPCS: 99212 ==

== ENCOUNTER 2023-01-28 08:54 | Outpatient (REF) | payer OTHER, SELFPAY ==
[2023-01-28 09:41] LABS: Hemoglobin 11.6 g/dl (12.0-16.0); Mean Corpuscular HGB Conc 32.2 g/dl (31.0-35.0); Mean Corpuscular Hemoglobin 29.1 pg (27.0-33.0); Mean Corpuscular Volume 90.2 fL (80.0-98.0); Mean Platelet Volume 11.4 fL (9.4-12.3); Platelet Count 309 X10*3/uL (160-400); Red Blood Count 3.99 X10*6/uL (4.20-5.50); White Blood Count 8.9 X10*3/uL (4.8-10.8)
[2023-01-28 09:43] LABS: Appearance Urine Cloudy; Color Urine Yellow; Glucose Urine UA Negative (Negative); Leukocyte Esterase Urine Negative (Negative); Nitrite Urine Negative (Negative); Specific Gravity - Urine 1.015 (1.005-1.025); Urine Blood Negative (Negative); Urine Ketones Negative (Negative); Urine Protein Negative (Neg-Trace)
[2023-01-28 10:18] LABS: Alanine Aminotransferase 16 U/L (0-31); Albumin Level 4.3 g/dL (3.5-5.0); Alkaline Phosphatase 106 U/L (39-117); Anion Gap 13 (12-20); Aspartate Amino Transferase 21 U/L (5-31); Bilirubin Total 0.2 mg/dL (0.0-1.0); Blood Urea Nitrogen 15 mg/dL (9-16); Calcium 9.4 mg/dL (8.4-10.2); Carbon Dioxide 25 mmol/L (22-29); Chloride 106 mmol/L (96-108); Estimated Glomerular Filt Rate 46; Glucose Fasting 109 mg/dL (60-99); Sodium 140 mmol/L (135-145); Total Protein 7.8 g/dL (6.5-8.0)
[2023-02-02 16:34] LABS: NT-proBNP 109 pg/mL (<125)
== END 2023-01-28 08:55 | disposition home or self-care (01) ==
LOC: HO.LAB 08:54
PROVIDERS: PCP Physician Assistant; Visit Provider Physician Assistant
DX: R39.9 Unspecified symptoms and signs involving the genitourinary system (principal); R60.9 Edema, unspecified; I10 Essential (primary) hypertension
CPT/HCPCS: 36415; 80053; 81003; 83880; 85027

== ENCOUNTER 2023-02-22 10:07 | Outpatient (AMB) | payer OTHER, SELFPAY ==
[2023-02-22 10:13] VITALS: BP 134/74; PULSE 95; O2SAT 92
--- NOTE | 2023-02-22 10:13 | A.OFFVIS_ITS ---
Intake Vital Signs 02/22/23 10:13 BP 134/74 Blood Pressure Location Lt radial Position Sitting Pulse 95 Pulse Source Pulse Oximeter Pulse Oximetry (%) 92 Oxygen Delivery Method Room Air Intake Visit Reasons: MAT Visit Intake Note: the patient presents for a mat visit Inspector Water Pollution Control Required: No Allergies codeine [CODEINE] Allergy (Mild, Verified 01/25/23 11:06) RASH varenicline [From Chantix] Allergy (Unknown, Verified 01/25/23 11:06) headaches venlafaxine [From Effexor] Adverse Reaction (Mild, Verified 01/25/23 11:06) gi upset Do you need a note to return to daycare/school/sports/work: No HPI MAT Visit HPI Details Patient presents for treatment follow up Currently prescribed Suboxone 8mg daily Tolerating current dose Recently started iron pills, and is now experiencing constipation declines medications to address this, would like to try different dietary changes first oherwise doing well PFSH Medical History Anxiety Bipolar 1 disorder Depression History of chronic back pain History of opioid abuse Hx of alopecia Hyperlipidemia Opioid dependence Right lumbar radiculopathy Surgical History History of carpal tunnel release of both wrists History of oral surgery Hx of tubal ligation Family History Father No problems noted. Mother Heart disease Diabetes Brother Heart disease Brother Heart disease Sister Diabetes Social History Housing: House Are you a primary medicare coordinator to a significant other at home: No Alcohol intake: never Patient Tobacco Use Status: Current everyday Tobacco user Tobacco use type: Cigarette Cigarettes Per Day: 2 (3 a month) Years Smoked: 40 +/- e-Cigarette/Vaping Use: Never Used Second Hand Smoke Exposure: No service: No Current occupational status: unemployed Cognitive needs: No Hearing needs: No Vision needs: No Review of Systems Const Reports as per HPI and Reports no additional complaints Physical Exam Vital Signs: Last Vital Signs Pulse 95 02/22/23 10:13 BP 134/74 02/22/23 10:13 Pulse Ox 92 02/22/23 10:13 Oxygen Delivery Method Room Air 02/22/23 10:13 Const General: cooperative, healthy appearing and no acute distress Psych Appearance: well kempt Thought process: Normal thought process present and Circumstantial thought process present Insight: Good insight present (Psych) Judgement: Good judgement present (Psych) Assessment & Plan Assessment & Plan (1) Opioid dependence: Code(s): F11.20 - Opioid dependence, uncomplicated Qualifiers: Substance use status: uncomplicated Qualified Code(s): F11.20 - Opioid dependence, uncomplicated Plan: * Continue Suboxone at current dose-- * Follow-up 8 weeks Medications: Refilled Suboxone 8-2 mg (buprenorphine-naloxone) 1 film sublingual DAILY 30 ea 1RF NS Coding Level of Care Code Est Pt Level 3 (77115) Diagnoses Uncomplicated opioid dependence F11.20 Substance use status: uncomplicated
== END 2023-02-22 10:49 | disposition home or self-care (01) ==
PROVIDERS: PCP Physician Assistant; Visit Provider Nurse Practitioner Psychiatric/Mental Health
DX: F11.20 Opioid dependence, uncomplicated (principal)
CPT/HCPCS: 99213

== ENCOUNTER → 2023-02-22 10:07 | Outpatient (BNVA) | payer OTHER, SELFPAY | PROVIDERS: PCP Physician Assistant; Visit Provider Nurse Practitioner Psychiatric/Mental Health | DX: F11.20 Opioid dependence, uncomplicated (principal) | CPT/HCPCS: 99212 ==

== ENCOUNTER 2023-03-30 11:23 | Outpatient (AMB) | payer OTHER, SELFPAY ==
--- NOTE | 2023-03-30 11:36 | MHC.PC.OV ---
Vital Signs 03/30/23 11:37 Height 5 ft 7 in Weight 211 lb 2 oz BMI 33.1 BP 118/72 Blood Pressure Location Lt brachial Position Sitting Pulse 85 Pulse Source Pulse Oximeter Pulse Oximetry (%) 97 Oxygen Delivery Method Room Air Intake Visit Reasons: f/u anxiety / MDD Supervisor Drying And Softening Required: No Accompanied by: Self / Same As Patient Allergies codeine [CODEINE] Allergy (Mild, Verified 03/30/23 11:59) RASH varenicline [From Chantix] Allergy (Unknown, Verified 03/30/23 11:59) headaches venlafaxine [From Effexor] Adverse Reaction (Mild, Verified 03/30/23 11:59) gi upset Medication List - Last Reconciled 03/30/23 by Narayan Clifton PA-C atorvastatin 10 mg PO DAILY 90 days buprenorphine-naloxone 4-1 mg (Suboxone) 1 film buccal DAILY buprenorphine-naloxone 8-2 mg (Suboxone) 1 film buccal DAILY clonazepam 1 mg PO DAILY 30 days divalproex ER 250 mg PO DAILY 90 days ferrous sulfate 325 mg PO DAILY 30 days furosemide (Lasix) 40 mg PO DAILY PRN 20 days ibuprofen 800 mg PO TID PRN lisinopril 20 mg PO DAILY 90 days miscellaneous medical supply (Blood Pressure Cuff) As directed naloxone 4 mg/actuation (Narcan) 4 mg intranasal Q2M PRN omeprazole 20 mg PO DAILY 90 days Tobacco use date assessed: 08/25/22 Dental Screening Dental Screen Date: 03/30/23 Did you have a dental visit in the last 12 months?: No Did you have a dental problem in the last 6 months where you did not have access to dental care?: No Was dental information given to patient?: Yes HPI f/u anxiety / MDD HPI Details Patient is a 61-year-old female here today for follow-up visit.. ?Patient has a past medical history significant for hyperlipidemia, generalized anxiety disorder, major depression, Bipolar disorder. Concern--> reports she has been having a burning sensation in her left knee when flexing or walking for long periods of time. She also reports having bilateral lateral hip pain when walking for long distances. We did discuss the possibility of her having a bursitis in her bilateral hips and discuss conservative management for this. Also she is willing to get x-rays of bilateral knees to start workup Opiate dependency: Continues to follow the [facility] and continues on Suboxone. .. Anxiety : Has been having more anxiety lately due to personal family issues at home. . Lower extremity edema: Has noted worsening lower extremity edema over the last several weeks. Has noted increased weight gain now at 211 lb. ..HLD:? Patient is compliant with statin therapy, will get repeat lipid panel to ensure appropriate LDL. ? .. ? MDD: ? She reports she is feeling better since she has been talking to a mental health therapist ( dorian)? through [facility]?.? Has not been set up with a psychiatrist yet. She continues on divalproex and clonazepam which have been helpful. ? ? [facility] Medical History Opioid dependence Anxiety History of chronic back pain Hx of alopecia History of opioid abuse Depression Hyperlipidemia Right lumbar radiculopathy Bipolar 1 disorder Surgical History History of oral surgery Hx of tubal ligation History of carpal tunnel release of both wrists Family History Father No problems noted. Mother Heart disease Diabetes Brother Heart disease Brother Heart disease Sister Diabetes Social History Housing: House Are you a primary women's health care nurse practitioner to a significant other at home: No Alcohol intake: never Patient Tobacco Use Status: Current everyday Tobacco user Tobacco use type: Cigarette Cigarettes Per Day: 2 (3 a month) Years Smoked: 40 +/- e-Cigarette/Vaping Use: Never Used Second Hand Smoke Exposure: No service: No Current occupational status: unemployed Cognitive needs: No Hearing needs: No Vision needs: No Questionnaire PHQ-9 Over the last 2 weeks, how often have you been bothered by any of the following problems? 1. Little interest or pleasure in doing things: not at all 2. Feeling down, depressed, or hopeless: nearly every day 3. Trouble falling or staying asleep, or sleeping too much: nearly every day 4. Feeling tired or having little energy: several days 5. Poor appetite or overeating: not at all 6. Feeling bad about yourself - or that you are a failure or have let yourself or your family down: not at all 7. Trouble concentrating on things, such as reading the newspaper or watching television: not at all 8. Moving or speaking so slowly that other people could have noticed. Or the opposite - being so fidgety or restless that you have been moving around a lot more than usual: not at all 9. Thoughts that you would be better off or of hurting yourself in some way: not at all Total score: 7 Depression Screening Interpretation: Positive Depression Screening Follow-up: Existing condition and In treatment Depression Screening Done: Yes 67629 - PHQ-9 Billing: Yes Source: Developed by Drs. Grady Gutierrez, Stella Gayle, Kurtis Myles and colleagues, with an educational jamal from [employer]. Thrive Questionnaire Date Thrive assessed: 08/25/22 I am a: Patient What is your living situation today?: I have a steady place to live Within the past 12 months, did the food you bought not last and you didn't have the money to get more?: Never true Within the past 12 months, did you worry whether your food would run out before you got money to buy more?: Never true Do you have trouble paying for medicines?: No Do you have trouble getting transportation to medical appointments?: No Do you have trouble paying your heating and electricity bill?: No Do you have trouble taking care of your child, family member or friend?: No Do you have trouble with day-to-day activities such as bathing, preparing meals, shopping, managing finances, etc.?: No Are you currently unemployed and looking for a job?: No Are you interested in more education?: No Currently or been in a relationship where the following occur: no concerns reported AUDIT C Alcohol Use Questionnaire (AUDIT-C) 1. How often do you have a drink containing alcohol?: Never 3. How often do you have six or more drinks on one occasion?: Never Total Score: 0 CLEMENT-7 AMB Questionnaire CLEMENT-7 Date CLEMENT - 7 assessed: 08/25/22 Feeling nervous, anxious, or on edge: 1 = Several days Not being able to stop or control worryin = Not at all Worrying too much about different things: 1 = Several days Trouble relaxin = Not at all Being so restless that it is hard to sit still: 0 = Not at all Becoming easily annoyed or irritable: 0 = Not at all Feeling afraid as if something awful might happen: 0 = Not at all Total CLEMENT-7 score (0-4 normal; 5-9 mild; 10-14 moderate; 15-21 severe): 2 Source: Developed by Drs. Grady Gutierrez, Stella Gayle, Kurtis Myles and colleagues, with an educational jamal from [employer]. CLEMENT-7 Assessment Billing CLEMENT-7 Assessment Tool: CLEMENT-7 Assessment 50564 Review of Systems Const Denies headache(s) Eyes Denies loss of vision ENT Denies vertigo, Denies dizziness, Denies headache(s) and Denies sore throat Card Denies chest pain, Denies leg edema and Denies lightheadedness Resp Denies cough, Denies hemoptysis and Denies wheezing GI Denies abdominal pain, Denies melena, Denies constipation, Denies diarrhea and Denies vomiting Denies urinary frequency, Denies dysuria and Denies urinary urgency Musc Denies arthralgias, Denies joint swelling, Denies numbness and Denies tingling Neuro Denies Abnormal speech present, Denies behavioral changes, Denies vertigo, Denies dizziness, Denies headache(s), Denies loss of vision, Denies memory loss, Denies numbness and Denies tingling Psych Denies anxiety, Denies behavioral changes, Denies depression, Denies memory loss and Denies panic attacks Ye/Lymph Denies easy bleeding and Denies easy bruising Aller/Immun Denies wheezing Physical exam (Primary Care) Vital Signs: Last Vital Signs Pulse 85 03/30/23 11:37 BP 118/72 03/30/23 11:37 Pulse Ox 97 03/30/23 11:37 Oxygen Delivery Method Room Air 03/30/23 11:37 BMI result Body Mass Index 33.1 Tobacco/Smoking Status: Tobacco use Status Tobacco use date assessed 08/25/22 03/30/23 11:52 Patient Tobacco Use Status Current everyday Tobacco 03/30/23 11:52 Tobacco use type Cigarette 03/30/23 11:52 e-Cigarette/Vaping Use Never Used 03/30/23 11:52 PHQ-9: PHQ-9 Score PHQ-9: Total score 7 03/30/23 12:08 Depression Screening Interpretation: Positive Depression Screening Follow-up: Existing condition and In treatment Thrive Assessment: Date of Thrive Assessment Date Thrive assessed 08/25/22 03/30/23 11:52 Currently or been in a relationship where the following occur: no concerns reported Const General: healthy appearing, no acute distress, alert and awake Nutritional Appearance: well nourished Orientation/consciousness: oriented to person, oriented to place and oriented to time HENMT Ears: TM's normal bilaterally General nose exam: Normal nasal mucous membranes and turbinates present Eyes Conjunctivae: conjunctivae normal Sclerae: sclerae normal Pupils: Equal, round and reactive pupils present Neck Neck: Yes no lymphadenopathy and Yes no JVD Thyroid: Thyroid normal Carotids: no bruits Resp Effort & Inspection: normal respiratory effort and not tachypneic Auscultation: no crackles, no rales, no rhonchi and no wheezes Cardio Rate: regular rate Rhythm: regular rhythm Heart sounds: no murmurs and normal S1 and S2 GI Palpation (GI): Soft to palpation, nontender, no hepatomegaly and no splenomegaly Auscultation: normal bowel sounds Skin General skin exam: no rashes or lesions noted and dry skin Neuro General: oriented to person, oriented to place and oriented to time Cranial nerves: Yes Equal, round and reactive pupils present Speech: No Abnormal speech present Gait exam (Neuro): Normal gait present Motor exam (neuro): no tremor noted Extrem Right upper extremity: full ROM Left upper extremity: full ROM Right lower extremity: full ROM; no edema Left lower extremity: full ROM; no edema Psych Mental Status: mental status grossly normal Speech and movement: Normal speech and movement present Affect: normal affect Attitude: cooperative Thought process: Normal thought process present Assessment and Plan Assessment & Plan (1) Peripheral edema: Code(s): R60.9 - Edema, unspecified Plan: Patient has intermittent lower extremity peripheral edema. She believes this is due to divalproex- medications. Will restart Lasix 40 mg daily. Advised to use compression socks . (2) Tobacco dependence: Code(s): F17.200 - Nicotine dependence, unspecified, uncomplicated Plan: She does report smoking a few cigarettes per day, none interested in completely quitting at this time. Offered nicotine replacement though patient declines (3) MDD (major depressive disorder), recurrent episode, moderate: Code(s): F33.1 - Major depressive disorder, recurrent, moderate Plan: Patient does have history of major depressive disorder/ bipolar disorder. Continues on mood stabilization with divalproex She continues to speak with mental health therapist. (4) CLEMENT (generalized anxiety disorder): Code(s): F41.1 - Generalized anxiety disorder Plan: Patient's CLEMENT-7 score positive for moderate anxiety which has been existing condition for her, Again continues to speak with a mental health therapist and takes clonazepam 1 mg daily. (5) Opioid dependence: Code(s): F11.20 - Opioid dependence, uncomplicated Qualifiers: Substance use status: uncomplicated Qualified Code(s): F11.20 - Opioid dependence, uncomplicated Plan: . Denies any illicit drug use recently. She is now following he safety specialist and has been started on Suboxone for chronic pain which has been helpful. (6) COPD (chronic obstructive pulmonary disease): Code(s): J44.9 - Chronic obstructive pulmonary disease, unspecified Qualifiers: COPD type: chronic bronchitis Chronic bronchitis type: simple Qualified Code(s): J41.0 - Simple chronic bronchitis Plan: Unfortunately continues to smoke a few cigarettes a day. She does have an albuterol inhaler available to her for cough and shortness of breath. Though generally her breathing has been fine. (7) Anemia: Code(s): D64.9 - Anemia, unspecified Qualifiers: Anemia type: iron deficiency Iron deficiency anemia type: unspecified iron deficiency Qualified Code(s): D50.9 - Iron deficiency anemia, unspecified Plan: Will continue to follow CBC (8) Bilateral knee pain: Code(s): M25.561 - Pain in right knee; M25.562 - Pain in left knee Qualifiers: Chronicity: chronic Qualified Code(s): M25.561 - Pain in right knee; M25.562 - Pain in left knee; G89.29 - Other chronic pain Plan: Will get bilateral knee x-rays due to complains of bilateral knee pain Orders: Orders Comprehensive [place]. Panel Fast Today E78.2 - Mixed hyperlipidemia Lipid Panel Today E78.2 - Mixed hyperlipidemia XR knee LT 3V Today M25.561 - Pain in right knee, M25.562 - Pain in left knee XR knee RT 3V Today M25.561 - Pain in right knee, M25.562 - Pain in left knee Complete Blood Count no Diff Today D50.9 - Iron deficiency anemia, unspecified IRON PROFILE Today D50.9 - Iron deficiency anemia, unspecified Medications: New albuterol sulfate 90 mcg/actuation 1 inh inhalation QID 30 days PRN 8.5 grams 1RF shortness of breath or wheezing J41.0 - Simple chronic bronchitis magnesium oxide 500 mg PO DAILY 30 days 30 caps 1RF R60.9 - Edema, unspecified Changed From furosemide (Lasix) 40 mg PO DAILY 20 days PRN 20 tabs 0RF edema R60.0 - Localized edema To furosemide (Lasix) 40 mg PO DAILY 30 days 30 tabs 1RF edema R60.0 - Localized edema Coding Level of Care Code Est Pt Level 4 (88750) Diagnoses Peripheral edema R60.9 Tobacco dependence F17.200 MDD (major depressive disorder), recurrent episode, moderate F33.1 CLEMENT (generalized anxiety disorder) F41.1 Uncomplicated opioid dependence F11.20 Substance use status: uncomplicated Simple chronic bronchitis J41.0 COPD type: chronic bronchitis Chronic bronchitis type: simple Iron deficiency anemia, unspecified iron deficiency anemia type D50.9 Anemia type: iron deficiency Iron deficiency anemia type: unspecified iron deficiency Chronic pain of both knees M25.561; M25.562; G89.29 Chronicity: chronic Additional Codes CLEMENT-7 Assessment Billing - CLEMENT-7 Assessment Tool: CLEMENT-7 Assessment [id number] ([id number])
[2023-03-30 11:37] VITALS: BP 118/72; PULSE 85; O2SAT 97; BMI 33.1
== END 2023-03-30 12:29 | disposition home or self-care (01) ==
PROVIDERS: PCP Physician Assistant; Visit Provider Physician Assistant
DX: R60.9 Edema, unspecified (principal); F33.1 Major depressive disorder, recurrent, moderate; F11.20 Opioid dependence, uncomplicated; J41.0 Simple chronic bronchitis; F17.210 Nicotine dependence, cigarettes, uncomplicated; F41.1 Generalized anxiety disorder; D50.9 Iron deficiency anemia, unspecified; M25.561 Pain in right knee; M25.562 Pain in left knee; G89.29 Other chronic pain
CPT/HCPCS: 96127; 99214

== ENCOUNTER 2023-04-19 08:57 | Outpatient (REF) | payer OTHER, SELFPAY ==
--- NOTE | ~2023-04-19 | XR_ITS ---
EXAMINATION: XR KNEE, RIGHT CLINICAL INFORMATION: Pain. COMPARISON: Radiographs dated 02/08/2020. TECHNIQUE: AP, lateral and sunrise views of the right knee. FINDINGS: Bony alignment and mineralization are normal. The lateral, medial and patellofemoral joint space compartments are well-maintained. There is mild peripheral osteophyte formation of the lateral and patellofemoral compartments. No fracture, dislocation or significant joint effusion is seen. There are atherosclerotic calcifications. No foreign body is seen. XR/XR knee LT 3V IMPRESSION: 1. There is mild osteoarthritic change of the lateral and patellofemoral joint space compartments of the right knee. 2. No fracture, dislocation or significant joint effusion is seen. EXAMINATION: XR KNEE, LEFT CLINICAL INFORMATION: Pain. COMPARISON: Radiographs dated 02/08/2020. TECHNIQUE: AP, lateral and sunrise views of the left knee. FINDINGS: Bony alignment and mineralization are normal. The lateral, medial and patellofemoral joint space compartment are well-maintained. There is very mild peripheral osteophyte formation of the upper right lesser the patella. No fracture or dislocation is seen. There is a very small joint effusion. There are atherosclerotic calcifications. No foreign body is seen. IMPRESSION: 1. There is very mild osteoarthritic change of the patellofemoral joint space compartment of the left knee. 2. There is a very small left knee joint effusion. 3. No fracture or dislocation is seen.
--- NOTE | ~2023-04-19 | XR_ITS ---
EXAMINATION: XR KNEE, RIGHT CLINICAL INFORMATION: Pain. COMPARISON: Radiographs dated 02/08/2020. TECHNIQUE: AP, lateral and sunrise views of the right knee. FINDINGS: Bony alignment and mineralization are normal. The lateral, medial and patellofemoral joint space compartments are well-maintained. There is mild peripheral osteophyte formation of the lateral and patellofemoral compartments. No fracture, dislocation or significant joint effusion is seen. There are atherosclerotic calcifications. No foreign body is seen. XR/XR knee RT 3V IMPRESSION: 1. There is mild osteoarthritic change of the lateral and patellofemoral joint space compartments of the right knee. 2. No fracture, dislocation or significant joint effusion is seen. EXAMINATION: XR KNEE, LEFT CLINICAL INFORMATION: Pain. COMPARISON: Radiographs dated 02/08/2020. TECHNIQUE: AP, lateral and sunrise views of the left knee. FINDINGS: Bony alignment and mineralization are normal. The lateral, medial and patellofemoral joint space compartment are well-maintained. There is very mild peripheral osteophyte formation of the upper right lesser the patella. No fracture or dislocation is seen. There is a very small joint effusion. There are atherosclerotic calcifications. No foreign body is seen. IMPRESSION: 1. There is very mild osteoarthritic change of the patellofemoral joint space compartment of the left knee. 2. There is a very small left knee joint effusion. 3. No fracture or dislocation is seen.
[2023-04-19 09:31] LABS: Hematocrit 41.4 % (37.0-47.0); Hemoglobin 13.3 g/dl (12.0-16.0); Mean Corpuscular HGB Conc 32.1 g/dl (31.0-35.0); Mean Corpuscular Hemoglobin 28.9 pg (27.0-33.0); Mean Platelet Volume 11.1 fL (9.4-12.3); Platelet Count 360 X10*3/uL (160-400); Red Cell Distribution Width 13.1 % (11.0-16.0); White Blood Count 8.2 X10*3/uL (4.8-10.8)
[2023-04-19 10:03] LABS: Alanine Aminotransferase 22 U/L (0-31); Albumin Level 4.6 g/dL (3.5-5.0); Alkaline Phosphatase 97 U/L (39-117); Anion Gap 14 (12-20); Aspartate Amino Transferase 20 U/L (5-31); Bilirubin Total 0.4 mg/dL (0.0-1.0); Blood Urea Nitrogen 14 mg/dL (9-16); Calcium 9.5 mg/dL (8.4-10.2); Carbon Dioxide 26 mmol/L (22-29); Chloride 105 mmol/L (96-108); Cholesterol 227 mg/dL (<200); Estimated Glomerular Filt Rate 51; Glucose Fasting 139 mg/dL (60-99); HDL Cholesterol 25 mg/dL (>40); Iron 83 mcg/dL (30-160); LDL Cholesterol Calculated 165 mg/dL (<100); Percent Iron Saturation 24 % (15-50); Potassium 4.5 mmol/L (3.3-5.1); Sodium 140 mmol/L (135-145); Total Iron Binding Capacity 347 mcg/dL (228-428); Total Protein 8.1 g/dL (6.5-8.0); Triglycerides 187 mg/dL (<150); Unsaturated Iron Binding 264 ug/dL
[2023-04-19 10:17] LABS: Appearance Urine Cloudy; Color Urine Yellow; Glucose Urine UA Negative (Negative); Leukocyte Esterase Urine Negative (Negative); Nitrite Urine Negative (Negative); Specific Gravity - Urine 1.015 (1.005-1.025); UMIC TRIGGER UACC YES; Urine Blood Trace (Negative); Urine Ketones Negative (Negative); Urine Protein Negative (Neg-Trace)
[2023-04-19 10:21] LABS: Bacteria Urine 1+ (None Seen); Hyaline Casts Urine 0-2 /LPF (0-2); RBC Urine 0-2 /HPF (0-2); WBC Urine 0-5 /HPF (0-5)
== END 2023-04-19 08:58 | disposition home or self-care (01) ==
LOC: HO.XRAY 08:57
PROVIDERS: PCP Physician Assistant; Visit Provider Physician Assistant
DX: M25.561 Pain in right knee (principal); M25.562 Pain in left knee; E78.2 Mixed hyperlipidemia; D50.9 Iron deficiency anemia, unspecified; F11.20 Opioid dependence, uncomplicated
CPT/HCPCS: 36415; 73562; 80053; 80061; 81001; 83540; 85027; 99212

== ENCOUNTER 2023-04-19 09:57 | Outpatient (AMB) | payer OTHER, SELFPAY ==
--- NOTE | 2023-04-19 09:58 | A.OFFVIS_ITS ---
Intake Vital Signs 04/19/23 10:05 BP 110/72 Blood Pressure Location Lt radial Position Sitting Pulse 84 Pulse Source Pulse Oximeter Pulse Oximetry (%) 97 Oxygen Delivery Method Room Air Intake Visit Reasons: MAT Visit Intake Note: the patient presents for a mat visit Obstetrics And Gynecology Professor Required: No Allergies codeine [CODEINE] Allergy (Mild, Verified 04/19/23 10:06) RASH varenicline [From Chantix] Allergy (Unknown, Verified 04/19/23 10:06) headaches venlafaxine [From Effexor] Adverse Reaction (Mild, Verified 04/19/23 10:06) gi upset Do you need a note to return to daycare/school/sports/work: No HPI MAT Visit HPI Details Pt presents for ANTON treatment and follow up. She reports she has been having difficulties with the generic formulation of the suboxone She reports that her films are creating blisters under her tongue. She reports she has been doing salt water swishes and this has been helpful for her. Two small blisters noted to under her tongue by this junior underwriter. She just recently saw her PCP and had labwork done. She expressed some concerns over her son- says he has not been taking care of himself, she became tearful at this time. Processed feelings with her. [facility] Medical History Opioid dependence Anxiety History of chronic back pain Hx of alopecia History of opioid abuse Depression Hyperlipidemia Right lumbar radiculopathy Bipolar 1 disorder Surgical History History of oral surgery Hx of tubal ligation History of carpal tunnel release of both wrists Family History Father No problems noted. Mother Heart disease Diabetes Brother Heart disease Brother Heart disease Sister Diabetes Social History Housing: House Are you a primary director of medicare to a significant other at home: No Alcohol intake: never Patient Tobacco Use Status: Current everyday Tobacco user Tobacco use type: Cigarette Cigarettes Per Day: 2 (3 a month) Years Smoked: 40 +/- e-Cigarette/Vaping Use: Never Used Second Hand Smoke Exposure: No service: No Current occupational status: unemployed Cognitive needs: No Hearing needs: No Vision needs: No Review of Systems Const Reports as per HPI ENT Details: Reports mouth lesions Physical Exam Vital Signs: Last Vital Signs Pulse 84 04/19/23 10:05 BP 110/72 04/19/23 10:05 Pulse Ox 97 04/19/23 10:05 Oxygen Delivery Method Room Air 04/19/23 10:05 HEENT Mouth: other (2 small, open sores noted- one on each side of the lingual frenulum) Resp Effort & Inspection: normal respiratory effort Psych Appearance: grossly normal Speech and movement: Normal speech and movement present Affect: normal affect Assessment & Plan Assessment & Plan (1) Opioid dependence: Code(s): F11.20 - Opioid dependence, uncomplicated Qualifiers: Substance use status: uncomplicated Qualified Code(s): F11.20 - Opioid dependence, uncomplicated Plan: Continue Suboxone at current dose-- Advised pt to utilize buccal administration for her suboxone to allow for her tongue to heal.Advised pt to try oralgel to address the discomfort, Follow-up 4 weeks Medications: Refilled buprenorphine-naloxone 4-1 mg (Suboxone) in the afternoon. total of 12mg daily 1 film buccal DAILY 30 ea 1RF buprenorphine-naloxone 8-2 mg (Suboxone) 1 film buccal DAILY 30 ea 1RF Coding Level of Care Code Est Pt Level 3 (75876) Diagnoses Uncomplicated opioid dependence F11.20 Substance use status: uncomplicated
[2023-04-19 10:05] VITALS: BP 110/72; PULSE 84; O2SAT 97
== END 2023-04-19 10:38 | disposition home or self-care (01) ==
PROVIDERS: PCP Physician Assistant; Visit Provider Nurse Practitioner Family
DX: F11.20 Opioid dependence, uncomplicated (principal)
CPT/HCPCS: 99213

== ENCOUNTER 2023-05-18 12:59 | Outpatient (AMB) | payer OTHER, SELFPAY ==
--- NOTE | 2023-05-18 13:03 | MHC.AM.SUB ---
Intake Vital Signs 05/18/23 13:14 BP 124/70 Blood Pressure Location Lt radial Position Sitting Pulse 97 Pulse Source Pulse Oximeter Pulse Oximetry (%) 97 Oxygen Delivery Method Room Air Intake Visit Reasons: MAT Visit Intake Note: the patient presents for a mat viisit Oncology Registrar Required: No Allergies codeine [CODEINE] Allergy (Mild, Verified 05/18/23 13:18) RASH varenicline [From Chantix] Allergy (Unknown, Verified 05/18/23 13:18) headaches venlafaxine [From Effexor] Adverse Reaction (Mild, Verified 05/18/23 13:18) gi upset Do you need a note to return to daycare/school/sports/work: No HPI MAT Visit HPI Details Patient presents for ANTON treatment and follow up She reports she had a good Randolph- she had previously vocalized concerns for son's sobriety, but found out she was mistaken over Mayuri when she visited with her son. She reports she frequently has leg cramps at night. Labs were done early February and were grossly normal. She also reports hairloss that she attributes to switching from name brand buprenorphine to generic. She is requesting her refill be brand name moving forward. Denies recovery concerns at this time [facility] Medical History Opioid dependence Anxiety History of chronic back pain Hx of alopecia History of opioid abuse Depression Hyperlipidemia Right lumbar radiculopathy Bipolar 1 disorder Surgical History History of oral surgery Hx of tubal ligation History of carpal tunnel release of both wrists Family History Father No problems noted. Mother Heart disease Diabetes Brother Heart disease Brother Heart disease Sister Diabetes Social History Housing: House Are you a primary healthcare network pricing consultant to a significant other at home: No Alcohol intake: never Patient Tobacco Use Status: Current everyday Tobacco user Tobacco use type: Cigarette Cigarettes Per Day: 2 (3 a month) Years Smoked: 40 +/- e-Cigarette/Vaping Use: Never Used Second Hand Smoke Exposure: No service: No Current occupational status: unemployed Cognitive needs: No Hearing needs: No Vision needs: No Review of Systems Const Reports as per HPI Musc Reports muscle cramps Physical Exam Vital Signs: Last Vital Signs Pulse 97 05/18/23 13:14 BP 124/70 05/18/23 13:14 Pulse Ox 97 05/18/23 13:14 Oxygen Delivery Method Room Air 05/18/23 13:14 Const General: cooperative and no acute distress Resp Effort & Inspection: normal respiratory effort Skin General skin exam: no rashes or lesions noted Psych Appearance: grossly normal Mental Status: mental status grossly normal Speech and movement: Normal speech and movement present Affect: normal affect Attitude: cooperative Assessment & Plan Assessment & Plan (1) Opioid dependence: Code(s): F11.20 - Opioid dependence, uncomplicated Qualifiers: Substance use status: uncomplicated Qualified Code(s): F11.20 - Opioid dependence, uncomplicated Plan: -Continue suboxone at current dose -Refill placed for brand-name- no substitutes -Follow up 8 weeks Medications: Changed From buprenorphine-naloxone 4-1 mg (Suboxone) in the afternoon. total of 12mg daily 1 film buccal DAILY 30 ea 1RF To Suboxone 4-1 mg (buprenorphine-naloxone) in the afternoon. total of 12mg daily 1 film buccal DAILY 30 ea 1RF NS From buprenorphine-naloxone 8-2 mg (Suboxone) 1 film buccal DAILY 30 ea 1RF To Suboxone 8-2 mg (buprenorphine-naloxone) 1 film buccal DAILY 30 ea 1RF NS Coding Level of Care Code Est Pt Level 3 (65586) Diagnoses Uncomplicated opioid dependence F11.20 Substance use status: uncomplicated
[2023-05-18 13:14] VITALS: BP 124/70; PULSE 97; O2SAT 97
== END 2023-05-18 13:42 | disposition home or self-care (01) ==
PROVIDERS: PCP Physician Assistant; Visit Provider Nurse Practitioner Family
DX: F11.20 Opioid dependence, uncomplicated (principal)
CPT/HCPCS: 99213

== ENCOUNTER → 2023-05-18 12:59 | Outpatient (BNVA) | payer OTHER, SELFPAY | PROVIDERS: PCP Physician Assistant; Visit Provider Nurse Practitioner Family | DX: Z51.81 Encounter for therapeutic drug level monitoring (principal); F11.20 Opioid dependence, uncomplicated | CPT/HCPCS: 99212 ==

== ENCOUNTER 2023-07-12 10:57 | Outpatient (AMB) | payer OTHER, SELFPAY ==
[2023-07-12 11:14] VITALS: BP 140/86; PULSE 95; O2SAT 96; BMI 35.1
--- NOTE | 2023-07-12 11:14 | MHC.AM.SUB ---
Intake Vital Signs 07/12/23 11:14 Height 5 ft 3 in Weight 198 lb 6 oz BMI 35.1 BP 140/86 H Blood Pressure Location Lt radial Position Sitting Pulse 95 Pulse Source Pulse Oximeter Pulse Oximetry (%) 96 Oxygen Delivery Method Room Air Intake Visit Reasons: MAT Visit Intake Note: the patient presents for a mat visit Environmental Studies Program Director Required: No Allergies codeine [CODEINE] Allergy (Mild, Verified 07/12/23 11:16) RASH varenicline [From Chantix] Allergy (Unknown, Verified 07/12/23 11:16) headaches venlafaxine [From Effexor] Adverse Reaction (Mild, Verified 07/12/23 11:16) gi upset Do you need a note to return to daycare/school/sports/work: No HPI MAT Visit HPI Details Pt presents for MAT appointment She reports being sick with URI x 2 weeks, she denies chills/fever/rust colored sputum/shortness of breath Reports at one point she was experiencing wheezing that has since resolved No concerns related to recovery at this time She is stable on Suboxone 12mg daily PFSH Medical History Opioid dependence Anxiety History of chronic back pain Hx of alopecia History of opioid abuse Depression Hyperlipidemia Right lumbar radiculopathy Bipolar 1 disorder Surgical History History of oral surgery Hx of tubal ligation History of carpal tunnel release of both wrists Family History Father No problems noted. Mother Heart disease Diabetes Brother Heart disease Brother Heart disease Sister Diabetes Social History Housing: House Are you a primary hospice care transitions coordinator to a significant other at home: No Alcohol intake: never Patient Tobacco Use Status: Current everyday Tobacco user Tobacco use type: Cigarette Cigarettes Per Day: 2 (3 a month) Years Smoked: 40 +/- e-Cigarette/Vaping Use: Never Used Second Hand Smoke Exposure: No service: No Current occupational status: unemployed Cognitive needs: No Hearing needs: No Vision needs: No Review of Systems Const Reports as per HPI Resp Denies change in phlegm color, Reports chest congestion, Reports cough, Denies excessive phlegm production and Denies wheezing Aller/Immun Denies wheezing Physical Exam Vital Signs: Last Vital Signs Pulse 95 07/12/23 11:14 BP 140/86 H 07/12/23 11:14 Pulse Ox 96 07/12/23 11:14 Oxygen Delivery Method Room Air 07/12/23 11:14 BMI result Body Mass Index 35.1 Const General: cooperative and no acute distress Resp Effort & Inspection: normal respiratory effort and able to speak in complete sentences Psych Appearance: grossly normal Mental Status: mental status grossly normal Speech and movement: Normal speech and movement present Affect: normal affect Attitude: cooperative Thought process: Normal thought process present Assessment & Plan Assessment & Plan (1) Opioid dependence: Code(s): F11.20 - Opioid dependence, uncomplicated Qualifiers: Substance use status: uncomplicated Qualified Code(s): F11.20 - Opioid dependence, uncomplicated Plan: -Continue suboxone same dose -Follow up 4 weeks -Discussed with her to seek medical attention should her URI symptoms persist or worsen and should she develop: shaking chillds/fever/Shortness of breath Medications: Refilled buprenorphine-naloxone 4-[address] 1 strip/tab under (each) side of tongue 1 film buccal Q24H 28 ea 0RF buprenorphine-naloxone 8-2 mg 1 film buccal DAILY 28 ea 0RF Coding Level of Care Code Est Pt Level 3 (65153) Diagnoses Uncomplicated opioid dependence F11.20 Substance use status: uncomplicated
== END 2023-07-12 11:37 | disposition home or self-care (01) ==
PROVIDERS: PCP Physician Assistant; Visit Provider Nurse Practitioner Family
DX: F11.20 Opioid dependence, uncomplicated (principal)
CPT/HCPCS: 99213

== ENCOUNTER → 2023-07-12 10:57 | Outpatient (BNVA) | payer OTHER, SELFPAY | PROVIDERS: PCP Physician Assistant; Visit Provider Nurse Practitioner Family | DX: Z51.81 Encounter for therapeutic drug level monitoring (principal); F11.20 Opioid dependence, uncomplicated | CPT/HCPCS: 99212 ==

== ENCOUNTER 2023-08-09 10:59 | Outpatient (REF) | payer OTHER, SELFPAY ==
[2023-08-09 13:24] LABS: Alanine Aminotransferase 33 U/L (0-31); Albumin Level 4.8 g/dL (3.5-5.0); Alkaline Phosphatase 98 U/L (39-117); Anion Gap 14 (12-20); Aspartate Amino Transferase 28 U/L (5-31); Bilirubin Total 0.4 mg/dL (0.0-1.0); Blood Urea Nitrogen 19 mg/dL (9-16); Calcium 9.5 mg/dL (8.4-10.2); Carbon Dioxide 29 mmol/L (22-29); Chloride 103 mmol/L (96-108); Estimated Glomerular Filt Rate 48; Glucose Random 116 mg/dL (60-115); Potassium 4.7 mmol/L (3.3-5.1); Sodium 141 mmol/L (135-145); Total Protein 8.6 g/dL (6.5-8.0)
== END 2023-08-09 11:00 | disposition home or self-care (01) ==
LOC: HO.LAB 10:59
PROVIDERS: PCP Physician Assistant; Visit Provider Nurse Practitioner Family
DX: Z51.81 Encounter for therapeutic drug level monitoring (principal); F11.20 Opioid dependence, uncomplicated
CPT/HCPCS: 36415; 80053; 80305; 99212

== ENCOUNTER 2023-08-09 10:59 | Outpatient (AMB) | payer OTHER, SELFPAY ==
--- NOTE | 2023-08-09 11:33 | A.OFFVISCC_ITS ---
Intake Intake Visit Reasons: MAT Visit Allergies codeine [CODEINE] Allergy (Mild, Verified 07/12/23 11:16) RASH varenicline [From Chantix] Allergy (Unknown, Verified 07/12/23 11:16) headaches venlafaxine [From Effexor] Adverse Reaction (Mild, Verified 07/12/23 11:16) gi upset HPI MAT Visit HPI Details Pt presents for MAT visit Reports she has been well States she has been smoking last cigarettes (3 a day) Reports she has been having intermittent muscle cramping lately over the past few weeks No concerns for recovery at this time Tolerating 12mg suboxone daily [facility] Medical History Opioid dependence Anxiety History of chronic back pain Hx of alopecia History of opioid abuse Depression Hyperlipidemia Right lumbar radiculopathy Bipolar 1 disorder Surgical History History of oral surgery Hx of tubal ligation History of carpal tunnel release of both wrists Family History Father No problems noted. Mother Heart disease Diabetes Brother Heart disease Brother Heart disease Sister Diabetes Social History Housing: House Are you a primary field care manager to a significant other at home: No Alcohol intake: never Patient Tobacco Use Status: Current everyday Tobacco user Tobacco use type: Cigarette Cigarettes Per Day: 2 (3 a month) Years Smoked: 40 +/- e-Cigarette/Vaping Use: Never Used Second Hand Smoke Exposure: No service: No Current occupational status: unemployed Cognitive needs: No Hearing needs: No Vision needs: No Review of Systems Const Reports as per HPI Physical Exam Const General: cooperative and comfortable Resp Effort & Inspection: normal respiratory effort Psych Appearance: grossly normal Mental Status: mental status grossly normal Speech and movement: Normal speech and movement present Affect: normal affect Attitude: cooperative Results AMB 14 Panel Urine Drug Screen Urine Marijuana (THC) Negative Last Edit by Sosa Sanchez CMA on 08/09/23 11:34 Urine Cocaine Negative Last Edit by Sosa Sanchez CMA on 08/09/23 11:34 Urine Morphine Negative Last Edit by Sosa Sanchez CMA on 08/09/23 11:34 Urine Methamphetamine Negative Last Edit by Sosa Sanchez CMA on 08/09/23 11:34 Urine Amphetamine Negative Last Edit by Sosa Sanchez CMA on 08/09/23 11:3 4 Urine Benzodiazepine Negative Last Edit by Sosa Sanchez CMA on 08/09/23 11:34 Urine Barbiturates Negative Last Edit by Sosa Sanchez CMA on 08/09/23 11: 34 Urine Methadone Negative Last Edit by Sosa Sanchez CMA on 08/09/23 11:34 Urine Buprenorphine Positive Last Edit by Sosa Sanchez CMA on 08/09/23 11 :34 Urine Tricyclic Antidepressant Positive Last Edit by Sosa Sanchez CMA on 08/09/23 11:34 Urine MDMA Negative Last Edit by Sosa Sanchez CMA on 08/09/23 11:34 Urine Oxycodone Negative Last Edit by Sosa Sanchez CMA on 08/09/23 11:34 Urine Phencyclidine Negative Last Edit by Sosa Sanchez CMA on 08/09/23 11 :34 Urine Propoxyphene Negative Last Edit by Sosa Sanchez CMA on 08/09/23 11: 34 Results Reviewed Results Reviewed: Laboratory Last Values POC Urine Buprenorphine Positive 08/09/23 11:32 POC Urine Morphine Negative 08/09/23 11:32 POC Urine Oxycodone Negative 08/09/23 11:32 POC Urine Methadone Negative 08/09/23 11:32 POC Urine Propoxyphene Negative 08/09/23 11:32 POC Urine Barbiturates Negative 08/09/23 11:32 POC U Tricyclic Antidpr Positive 08/09/23 11:32 POC Urine PCP Negative 08/09/23 11:32 POC Ur Amphetamines Negative 08/09/23 11:32 POC Ur Methamphetamine Negative 08/09/23 11:32 POC Urine MDMA Negative 08/09/23 11:32 POC Ur Benzodiazepine Negative 08/09/23 11:32 POC Urine Cocaine Negative 08/09/23 11:32 POC Ur Marijuana (THC) Negative 08/09/23 11:32 Assessment & Plan Assessment & Plan (1) Opioid dependence: Code(s): F11.20 - Opioid dependence, uncomplicated Qualifiers: Substance use status: uncomplicated Qualified Code(s): F11.20 - Opioid dependence, uncomplicated Plan: -Continue suboxone same dose -Discussed with her obtaining a CMP to rule out elecrolyte imbalance as a source of muscle cramping -Follow up 4 weeks Orders: Orders Comprehensive Met. Panel Today F11.20 - Opioid dependence, uncomplicated AMB 14 Panel Urine Drug Screen Today Z51.81 - Encounter for therapeutic drug level monitoring Medications: Refilled buprenorphine-naloxone 4-[address] 1 strip/tab under (each) side of tongue 1 film buccal Q24H 30 ea 0RF buprenorphine-naloxone 8-2 mg 1 film buccal DAILY 30 ea 0RF Coding Level of Care Code Est Pt Level 3 (08646) Diagnoses Uncomplicated opioid dependence F11.20 Substance use status: uncomplicated
== END 2023-08-09 11:39 | disposition home or self-care (01) ==
PROVIDERS: PCP Physician Assistant; Visit Provider Nurse Practitioner Family
DX: F11.20 Opioid dependence, uncomplicated (principal); Z51.81 Encounter for therapeutic drug level monitoring
CPT/HCPCS: 99213

== ENCOUNTER 2023-09-06 10:59 | Outpatient (AMB) | payer OTHER, SELFPAY ==
--- NOTE | 2023-09-06 11:01 | A.OFFVISCC_ITS ---
Intake Vital Signs 09/06/23 11:07 BP 154/98 H Blood Pressure Location Lt brachial Position Sitting Pulse 96 Pulse Source Pulse Oximeter Pulse Oximetry (%) 95 Oxygen Delivery Method Room Air Intake Visit Reasons: MAT Visit Allergies codeine [CODEINE] Allergy (Mild, Verified 09/06/23 11:01) RASH varenicline [From Chantix] Allergy (Unknown, Verified 09/06/23 11:01) headaches venlafaxine [From Effexor] Adverse Reaction (Mild, Verified 09/06/23 11:01) gi upset HPI MAT Visit HPI Details Patient presents for MAT visit Reports she has been very congested past 1-2 weeks, when she blows her nose it is clear Took an antihistamine yesterday with good effect Has been experiencing increasing swelling to BLE Has appointment next week with PCP States she has been taking her lasix in the morning PRN HPI Comments History of Present Illness Details Patient presents for MAT visit [facility] Medical History Opioid dependence Anxiety History of chronic back pain Hx of alopecia History of opioid abuse Depression Hyperlipidemia Right lumbar radiculopathy Bipolar 1 disorder Surgical History History of oral surgery Hx of tubal ligation History of carpal tunnel release of both wrists Family History Father No problems noted. Mother Heart disease Diabetes Brother Heart disease Brother Heart disease Sister Diabetes Social History Housing: House Are you a primary health care marketing manager to a significant other at home: No Alcohol intake: never Patient Tobacco Use Status: Current everyday Tobacco user Tobacco use type: Cigarette Cigarettes Per Day: 2 (3 a month) Years Smoked: 40 +/- e-Cigarette/Vaping Use: Never Used Second Hand Smoke Exposure: No service: No Current occupational status: unemployed Cognitive needs: No Hearing needs: No Vision needs: No Review of Systems Const Reports as per HPI ENT Denies facial pain, Reports nasal congestion and Reports sinus pressure Physical Exam Vital Signs: Last Vital Signs Pulse 96 09/06/23 11:07 BP 154/98 H 09/06/23 11:07 Pulse Ox 95 09/06/23 11:07 Oxygen Delivery Method Room Air 04/16/24 11:07 Const General: cooperative and no acute distress Resp Effort & Inspection: normal respiratory effort, able to speak in complete sentences, no audible wheezes and no cough Auscultation: clear to auscultation bilaterally, no crackles and no wheezes Extrem General: Yes no calf tenderness, Yes edema and Yes pedal edema Psych Appearance: grossly normal Mental Status: mental status grossly normal Speech and movement: Normal speech and movement present Affect: normal affect Attitude: cooperative Thought process: Normal thought process present Assessment & Plan Assessment & Plan (1) Seasonal allergic rhinitis: Code(s): J30.2 - Other seasonal allergic rhinitis Qualifiers: Allergic rhinitis trigger: unspecified Qualified Code(s): J30.2 - Other seasonal allergic rhinitis Plan: -Start flonase one spray per nostril daily, provided med education -Start cetirizine once daily (2) Opioid dependence: Code(s): F11.20 - Opioid dependence, uncomplicated Qualifiers: Substance use status: uncomplicated Qualified Code(s): F11.20 - Opioid dependence, uncomplicated Plan: -MAss pat reviewed -Refill for suboxone sent to [facility] ([facility]) -Reviewed recent labwork with her -Follow up 4 weeks (3) Peripheral edema: Code(s): R60.9 - Edema, unspecified Plan: -Advised her to continue taking her lasix -Advised her to make sure she hydrates properly with water (6-8 glasses a day) -Discussed with her wrapping her legs with beverly wraps in figure 8 pattern -Reviewed with her to f/u with PCP as soon as possible Medications: New fluticasone propionate 50 mcg/actuation (Allergy Relief (fluticasone)) administer into each nostril 1 spray intranasal DAILY 16 grams 0RF cetirizine 10 mg PO DAILY 30 tabs 0RF Refilled buprenorphine-naloxone 8-2 mg 1 film buccal DAILY 30 ea 0RF buprenorphine-naloxone 4-[address] 1 strip/tab under (each) side of tongue 1 film buccal Q24H 30 ea 0RF Coding Level of Care Code Est Pt Level 4 (48179) Diagnoses Seasonal allergic rhinitis, unspecified trigger J30.2 Allergic rhinitis trigger: unspecified Uncomplicated opioid dependence F11.20 Substance use status: uncomplicated Peripheral edema R60.9
[2023-09-06 11:07] VITALS: BP 154/98; PULSE 96; O2SAT 95
== END 2023-09-06 11:45 | disposition home or self-care (01) ==
PROVIDERS: PCP Physician Assistant; Visit Provider Nurse Practitioner Family
DX: F11.20 Opioid dependence, uncomplicated (principal); J30.2 Other seasonal allergic rhinitis; R60.9 Edema, unspecified
CPT/HCPCS: 99214

== ENCOUNTER → 2023-09-06 10:59 | Outpatient (BNVA) | payer OTHER, SELFPAY | PROVIDERS: PCP Physician Assistant; Visit Provider Nurse Practitioner Family | DX: Z51.81 Encounter for therapeutic drug level monitoring (principal); F11.20 Opioid dependence, uncomplicated; J30.2 Other seasonal allergic rhinitis; R60.9 Edema, unspecified | CPT/HCPCS: 99212 ==

== ENCOUNTER 2023-10-11 11:03 | Outpatient (AMB) | payer OTHER, SELFPAY ==
--- NOTE | 2023-10-11 11:29 | MHC.PC.OV ---
Vital Signs 10/11/23 11:30 Height 5 ft 3 in Weight 201 lb 2 oz BMI 35.6 BP 142/74 H Blood Pressure Location Lt brachial Position Sitting Pulse 77 Pulse Source Pulse Oximeter Pulse Oximetry (%) 95 Oxygen Delivery Method Room Air Intake Visit Reasons: pe Intake Note: Patient is here today for a physical. Barrel Handler Required: No Accompanied by: Self / Same As Patient Allergies codeine [CODEINE] Allergy (Mild, Verified 10/11/23 11:49) RASH varenicline [From Chantix] Allergy (Unknown, Verified 10/11/23 11:49) headaches venlafaxine [From Effexor] Adverse Reaction (Mild, Verified 10/11/23 11:49) gi upset Medication List - Last Reconciled 10/11/23 by Narayan Clifton PA-C albuterol sulfate 90 mcg/actuation 1 inh inhalation QID PRN 30 days atorvastatin 10 mg PO DAILY 90 days buprenorphine-naloxone 4-1 mg 1 film buccal Q24H buprenorphine-naloxone 8-2 mg 1 film buccal DAILY cetirizine 10 mg PO DAILY clonazepam 1 mg PO DAILY 30 days divalproex ER 250 mg PO DAILY 90 days ferrous sulfate 325 mg PO DAILY 30 days fluticasone propionate 50 mcg/actuation (Allergy Relief (fluticasone)) 1 spray intranasal DAILY furosemide (Lasix) 40 mg PO DAILY 30 days ibuprofen 800 mg PO TID PRN lisinopril 20 mg PO DAILY 90 days magnesium oxide 500 mg PO DAILY 30 days miscellaneous medical supply (Blood Pressure Cuff) As directed naloxone 4 mg/actuation (Narcan) 4 mg intranasal Q2M PRN omeprazole 20 mg PO DAILY 90 days Tobacco use date assessed: 10/11/23 Dental Screening Dental Screen Date: 10/11/23 Did you have a dental visit in the last 12 months?: No Did you have a dental problem in the last 6 months where you did not have access to dental care?: No Was dental information given to patient?: Patient has dentist HPI pe HPI Details Patient is a 61-year-old female here today for follow-up visit.. ?Patient has a past medical history significant for hyperlipidemia, generalized anxiety disorder, major depression, Bipolar disorder. Concern--> continues to have intermittent lower extremity edema. Does use furosemide on as needed basis with good effect on reducing her swelling in her legs. Unclear etiology at this time though may be related to her divalproex .. Former smoker: Has quit smoking over the last week and if feeling prior to about this. She does have a little bit of nicotine withdrawal at this time. Opiate dependency: Continues to follow the comprehensive treatment center and continues on Suboxone. .. Anxiety : She reports anxiety has been fairly well controlled with current doses of her mental health medication. Have increased anxiety recently due to in her family. . Lower extremity edema: Has noted worsening lower extremity edema over the last several weeks. Has noted increased weight gain now at 211 lb. ..HLD:? Patient is compliant with statin therapy, will get repeat lipid panel to ensure appropriate LDL. ? .. ? MDD: ? She reports she is feeling better since she has been talking to a mental health therapist ( dorian)? through [facility]?.? Has not been set up with a psychiatrist yet. She continues on divalproex and clonazepam which have been helpful. Colon cancer screening: Has yet to do Cologuard Vaccines: Up-to-date with COVID vaccine and pneumonia vaccine, Need Tdap Mammogram: Needs up-to-date mammogram BRAND ANALYST: Need a PAP [facility] Medical History Opioid dependence Anxiety History of chronic back pain Hx of alopecia History of opioid abuse Depression Hyperlipidemia Right lumbar radiculopathy Bipolar 1 disorder Surgical History History of oral surgery Hx of tubal ligation History of carpal tunnel release of both wrists Family History Father No problems noted. Mother Heart disease Diabetes Brother Heart disease Brother Heart disease Sister Diabetes Social History (Updated 10/11/23 @ 11:54 by Narayan Clifton PA-C) Housing: House Are you a primary child care counselor to a significant other at home: No Alcohol intake: never Patient Tobacco Use Status: Former Tobacco user Quit Date: 2023 Tobacco use type: Cigarette Cigarettes Per Day: 0 (3 a month) Years Smoked: 40 +/- e-Cigarette/Vaping Use: Never Used Second Hand Smoke Exposure: No service: No Current occupational status: unemployed Cognitive needs: No Hearing needs: No Vision needs: No Questionnaire Thrive Questionnaire Date Thrive assessed: 10/11/23 I am a: Patient What is your living situation today?: I have a steady place to live Within the past 12 months, did the food you bought not last and you didn't have the money to get more?: Never true Within the past 12 months, did you worry whether your food would run out before you got money to buy more?: Never true Do you have trouble paying for medicines?: No Do you have trouble getting transportation to medical appointments?: No Do you have trouble paying your heating and electricity bill?: No Do you have trouble taking care of your child, family member or friend?: No Do you have trouble with day-to-day activities such as bathing, preparing meals, shopping, managing finances, etc.?: No Are you currently unemployed and looking for a job?: No Are you interested in more education?: No Currently or been in a relationship where the following occur: no concerns reported THRIVE Score: 0 AUDIT C Alcohol Use Questionnaire (AUDIT-C) 1. How often do you have a drink containing alcohol?: Never 3. How often do you have six or more drinks on one occasion?: Never Total Score: 0 CLEMENT-7 AMB Questionnaire CLEMENT-7 Date CLEMENT - 7 assessed: 10/11/23 Feeling nervous, anxious, or on edge: 0 = Not at all Not being able to stop or control worryin = Not at all Worrying too much about different things: 0 = Not at all Trouble relaxin = Not at all Being so restless that it is hard to sit still: 0 = Not at all Becoming easily annoyed or irritable: 0 = Not at all Feeling afraid as if something awful might happen: 0 = Not at all Total CLEMENT-7 score (0-4 normal; 5-9 mild; 10-14 moderate; 15-21 severe): 0 Source: Developed by Drs. Grady Gutierrez, Stella Gayle, Kurtis Myles and colleagues, with an educational jamal from [employer] CLEMENT-7 Assessment Billing CLEMENT-7 Assessment Tool: CLEMENT-7 Assessment 06027 Review of Systems Const Denies body aches, Denies chills, Denies excessive sweating, Denies fatigue, Denies fever(s) and Denies headache(s) Eyes Denies blurry vision ENT Denies dysphagia, Denies vertigo, Denies dizziness, Denies headache(s), Denies hearing loss and Denies tinnitus Card Denies chest pain, Denies chest pain with activity, Denies syncope, Denies irregular heart rhythm and Denies dyspnea Resp Denies chest congestion, Denies cough, Denies hemoptysis, Denies dyspnea and Denies wheezing GI Denies abdominal pain, Denies melena, Denies hematochezia, Denies coffee ground emesis, Denies dysphagia, Denies diarrhea, Denies nausea and Denies vomiting Denies urinary frequency, Denies dysuria, Denies urinary hesitancy and Denies urinary urgency Musc Denies arthralgias, Denies limited range of motion, Denies muscle cramps and Denies muscle weakness Skin/Breast Denies rash and Denies skin ulcer Neuro Denies Abnormal speech present, Denies confusion, Denies vertigo, Denies dizziness, Denies syncope, Denies headache(s), Denies memory loss and Denies seizure-like activity Psych Denies anxiety, Denies confusion, Denies depression, Denies memory loss, Denies panic attacks and Denies paranoia Endo Denies excessive sweating, Denies fatigue, Denies flushing, Denies polydipsia and Denies polyuria Aller/Immun Denies wheezing Physical exam (Primary Care) Vital Signs: Last Vital Signs Pulse 77 10/11/23 11:30 BP 142/74 H 10/11/23 11:30 Pulse Ox 95 10/11/23 11:30 Oxygen Delivery Method Room Air 10/11/23 11:30 BMI result Body Mass Index 35.6 Tobacco/Smoking Status: Tobacco use Status Tobacco use date assessed 10/11/23 10/11/23 11:43 Patient Tobacco Use Status Former Tobacco user 10/11/23 11:54 Tobacco use type Cigarette 10/11/23 11:54 e-Cigarette/Vaping Use Never Used 10/11/23 11:54 Thrive Assessment: Date of Thrive Assessment Date Thrive assessed 10/11/23 10/11/23 11:32 Currently or been in a relationship where the following occur: no concerns reported Const General: cooperative, comfortable, no acute distress, alert and awake; No confusion Orientation/consciousness: oriented to person, oriented to place, patient oriented x3 and No confusion HENMT Head: Yes normocephalic Ears: external ears normal and TM's normal bilaterally Face and sinus: No sinus tenderness Mouth: Normal oral and palatal mucosa present and tongue normal Teeth and gingiva: dentition normal and gingiva normal Throat: Yes posterior oropharynx normal, Yes tonsils normal and Yes uvula midline Eyes Conjunctivae: conjunctivae normal Sclerae: sclerae normal Pupils: Equal, round and reactive pupils present EOM: EOMs intact bilaterally Direct Ophthalmoscopy: No no photophobia Neck Neck: Yes no lymphadenopathy, No tender and Yes no JVD Thyroid: Thyroid normal Carotids: no bruits Chest Chest palpation & inspection: no tenderness Resp Effort & Inspection: normal respiratory effort, no audible wheezes, not labored and no stridor Auscultation: no crackles, no rales, no rhonchi and no wheezes Cardio Jugular venous distension: no JVD Rate: regular rate, not bradycardic and not tachycardic Rhythm: regular rhythm Bruits: no carotid bruits Peripheral pulses: Peripheral pulses 2+ throughout GI Inspection: Yes normal to inspection, No abdominal wall ecchymosis and No visible herniation Palpation (GI): Soft to palpation, nontender, no guarding, not rigid and No hepatosplenomegaly present Auscultation: normoactive bowel sounds General: Yes no CVA tenderness Back/Spine/Pelvis Back: no CVA tenderness and No back tenderness Cervical Spine: cervical ROM normal Thoracic/Lumbar Spine: thoracic and lumbar spine normal to inspection, straight leg raise negative bilaterally, No thoraco-lumbar ROM limited and No lumbar spinal tenderness Skin Lesions: no lesions Rashes: no rashes Wounds: no wounds Neuro General: oriented to person, oriented to place, patient oriented x3, CN's II-XI intact bilaterally and No confusion Cranial nerves: Yes Equal, round and reactive pupils present and Yes Normal accommodation reflex present Cognition (Neuro): normal cognition Speech: No Abnormal speech present Gait exam (Neuro): Normal gait present Motor exam (neuro): 5/5 motor strength present throughout Extrem Right upper extremity: full ROM; no cyanosis Left upper extremity: full ROM; no cyanosis Right lower extremity: no edema Left lower extremity: no edema Psych Appearance: grossly normal Mental Status: mental status grossly normal Affect: normal affect Attitude: cooperative Thought process: Normal thought process present Assessment and Plan Assessment & Plan (1) Annual physical exam: Code(s): Z00.00 - Encounter for general adult medical examination without abnormal findings (2) MDD (major depressive disorder), recurrent episode, moderate: Code(s): F33.1 - Major depressive disorder, recurrent, moderate Plan: Patient does have history of major depressive disorder/ bipolar disorder. Continues on mood stabilization with divalproex She continues to speak with mental health therapist. (3) CLEMENT (generalized anxiety disorder): Code(s): F41.1 - Generalized anxiety disorder Plan: Again continues to speak with a mental health therapist and takes clonazepam 1 mg daily. (4) Opioid dependence: Code(s): F11.20 - Opioid dependence, uncomplicated Qualifiers: Substance use status: uncomplicated Qualified Code(s): F11.20 - Opioid dependence, uncomplicated Plan: She is following he sports marketing specialist and continues on Suboxone for chronic pain which has been helpful. (5) COPD (chronic obstructive pulmonary disease): Code(s): J44.9 - Chronic obstructive pulmonary disease, unspecified Qualifiers: COPD type: chronic bronchitis Chronic bronchitis type: simple Qualified Code(s): J41.0 - Simple chronic bronchitis Plan: She has recently quit smoking. She does have an albuterol inhaler available to her for cough and shortness of breath. Though generally her breathing has been fine. (6) Anemia: Code(s): D64.9 - Anemia, unspecified Qualifiers: Anemia type: iron deficiency Iron deficiency anemia type: unspecified iron deficiency Qualified Code(s): D50.9 - Iron deficiency anemia, unspecified Plan: Will continue to follow CBC (7) Former smoker: Code(s): Z87.891 - Personal history of nicotine dependence Plan: Recently quit smoking and congratulated her on this. Advised on perhaps trying nicotine replacement though she declines at this time. She will continue to try to stay away from smoking cigarettes. (8) Hyperlipidemia: Code(s): E78.5 - Hyperlipidemia, unspecified Qualifiers: Hyperlipidemia type: mixed hyperlipidemia Qualified Code(s): E78.2 - Mixed hyperlipidemia Plan: Most recent lipid panel showing elevated total cholesterol and LDL. She continues on statin therapy at this time without any side effect. Will recheck lipid panel to evaluate for improvement. Goal LDL to be below 130 (9) Bipolar 1 disorder: Code(s): F31.9 - Bipolar disorder, unspecified Plan: Patient continues on mood stabilization with divalproex. She reports she is fairly stable from a mental health point of view. She does have a mental health therapist she is speaks to on a regular basis. (10) HTN (hypertension): Code(s): I10 - Essential (primary) hypertension Qualifiers: Hypertension type: essential hypertension Qualified Code(s): I10 - Essential (primary) hypertension Plan: Patient's blood pressure slightly elevated today in office. Will add on hydrochlorothiazide 12.5 mg. Advised to monitor blood pressure with goal blood pressure to be below 140/90 (11) Breast cancer screening: Code(s): Z12.39 - Encounter for other screening for malignant neoplasm of breast Qualifiers: Breast cancer screening modality: mammogram Qualified Code(s): Z12.31 - Encounter for screening mammogram for malignant neoplasm of breast Plan: Needs up-to-date mammogram (12) Colon cancer screening: Code(s): Z12.11 - Encounter for screening for malignant neoplasm of colon Plan: Willing to do Cologuard (13) Cervical cancer screening: Code(s): Z12.4 - Encounter for screening for malignant neoplasm of cervix Plan: Needs up-to-date cervical cancer screening Orders: Orders Lipid Panel Today E78.2 - Mixed hyperlipidemia Comprehensive [facility]. Panel Fast Today E78.2 - Mixed hyperlipidemia Complete Blood Count no Diff Today E78.2 - Mixed hyperlipidemia Microalbumin, Random (w Creat) Today I10 - Essential (primary) hypertension MM screening mammo BI Today Z12.31 - Encounter for screening mammogram for malignant neoplasm of breast Referrals Cologuard Test Z12.11 - Encounter for screening for malignant neoplasm of colon [employer] Referral Z12.4 - Encounter for screening for malignant neoplasm of cervix Medications: New lisinopril-hydrochlorothiazide 20-12.5 mg 1 tab PO DAILY 90 days 90 tabs 1RF I10 - Essential (primary) hypertension Changed From miscellaneous medical supply (Blood Pressure Cuff) As directed 1 ea 0RF I10 - Essential (primary) hypertension To miscellaneous medical supply (Blood Pressure Cuff) test once per day / PRN 1 ea 0RF I10 - Essential (primary) hypertension Discontinued magnesium oxide Discontinued Reason: Doctor's Order 500 mg PO DAILY 30 days 30 caps 1RF R60.9 - Edema, unspecified lisinopril Discontinued Reason: Doctor's Order 20 mg PO DAILY 90 days 90 tabs 2RF I10 - Essential (primary) hypertension Patient Instructions: Goal: Blood pressure to remain below 140/90 Barriers: Adherence to physical activity and healthy eating habits. Coding Level of Care Code Est Pt Prev Care 40-64y(91912) Diagnoses Annual physical exam Z00.00 MDD (major depressive disorder), recurrent episode, moderate F33.1 CLEMENT (generalized anxiety disorder) F41.1 Uncomplicated opioid dependence F11.20 Substance use status: uncomplicated Simple chronic bronchitis J41.0 COPD type: chronic bronchitis Chronic bronchitis type: simple Iron deficiency anemia, unspecified iron deficiency anemia type D50.9 Anemia type: iron deficiency Iron deficiency anemia type: unspecified iron deficiency Former smoker Z87.891 Mixed hyperlipidemia E78.2 Hyperlipidemia type: mixed hyperlipidemia Bipolar 1 disorder F31.9 Essential hypertension I10 Hypertension type: essential hypertension Encounter for screening mammogram for malignant neoplasm of breast Z12.31 Breast cancer screening modality: mammogram Colon cancer screening Z12.11 Cervical cancer screening Z12.4 Additional Codes CLEMENT-7 Assessment Billing - CLEMENT-7 Assessment Tool: CLEMENT-7 Assessment [id number] ([id number])
[2023-10-11 11:30] VITALS: BP 142/74; PULSE 77; O2SAT 95; BMI 35.6
== END 2023-10-11 12:09 | disposition home or self-care (01) ==
PROVIDERS: PCP Physician Assistant; Visit Provider Physician Assistant
DX: Z00.00 Encounter for general adult medical examination without abnormal findings (principal); F33.1 Major depressive disorder, recurrent, moderate; F11.20 Opioid dependence, uncomplicated; J41.0 Simple chronic bronchitis; F31.9 Bipolar disorder, unspecified; F41.1 Generalized anxiety disorder; D50.9 Iron deficiency anemia, unspecified; Z87.891 Personal history of nicotine dependence; E78.2 Mixed hyperlipidemia; I10 Essential (primary) hypertension; Z12.31 Encounter for screening mammogram for malignant neoplasm of breast; Z12.11 Encounter for screening for malignant neoplasm of colon
CPT/HCPCS: 99396

== ENCOUNTER 2023-10-12 10:57 | Outpatient (AMB) | payer OTHER, SELFPAY ==
--- NOTE | 2023-10-12 10:58 | A.OFFVISCC_ITS ---
Vital Signs 10/12/23 11:00 BP 144/86 H Blood Pressure Location Lt brachial Position Sitting Pulse 88 Pulse Source Pulse Oximeter Pulse Oximetry (%) 94 Oxygen Delivery Method Room Air Intake Visit Reasons: MAT Visit Allergies codeine [CODEINE] Allergy (Mild, Verified 10/11/23 11:49) RASH varenicline [From Chantix] Allergy (Unknown, Verified 10/11/23 11:49) headaches venlafaxine [From Effexor] Adverse Reaction (Mild, Verified 10/11/23 11:49) gi upset HPI HPI MAT Visit: Details: Patient presents for MAT visit States she had been doing well Recent appointment with PCP, states her b/p has been elevated at her last few provider visits Is to begin tracking her blood pressures at home, has a cuff to be picked up from the pharmacy Denies any concerns for recovery, tolerating suboxone 12mg daily and tolerating it well. Denies side effects. HPI Comments Details: Patient presents for MAT visit [facility] Medical History Opioid dependence Anxiety History of chronic back pain Hx of alopecia History of opioid abuse Depression Hyperlipidemia Right lumbar radiculopathy Bipolar 1 disorder Surgical History History of oral surgery Hx of tubal ligation History of carpal tunnel release of both wrists Family History Father No problems noted. Mother Heart disease Diabetes Brother Heart disease Brother Heart disease Sister Diabetes Social History (Updated 10/11/23 @ 11:54 by Narayan Clifton PA-C) Housing: House Are you a primary critical care transport nurse to a significant other at home: No Alcohol intake: never Patient Tobacco Use Status: Former Tobacco user Quit Date: 2023 Tobacco use type: Cigarette Cigarettes Per Day: 0 (3 a month) Years Smoked: 40 +/- e-Cigarette/Vaping Use: Never Used Second Hand Smoke Exposure: No service: No Current occupational status: unemployed Cognitive needs: No Hearing needs: No Vision needs: No Review of Systems Const Reports as per HPI Physical Exam Vital Signs: Last Vital Signs Pulse 88 10/12/23 11:00 BP 144/86 H 10/12/23 11:00 Pulse Ox 94 10/12/23 11:00 Oxygen Delivery Method Room Air 10/12/23 11:00 Const General: cooperative and no acute distress Resp Effort & Inspection: normal respiratory effort and able to speak in complete sentences Psych Appearance: grossly normal Mental Status: mental status grossly normal Speech and movement: Normal speech and movement present Affect: normal affect Attitude: cooperative Thought process: Normal thought process present Assessment & Plan Assessment & Plan (1) Tobacco dependence: Code(s): F17.200 - Nicotine dependence, unspecified, uncomplicated Category: Medical Plan: -She has been tobacco free for 6 days, is requesting for NRT, discussed lozenges vs gum vs the nicotine patch. She would like to trial the lozenge. Script sent to pt pharmacy. Med education provided (2) Opioid dependence: Code(s): F11.20 - Opioid dependence, uncomplicated Category: Medical Qualifiers: Substance use status: uncomplicated Qualified Code(s): F11.20 - Opioid dependence, uncomplicated Plan: -No refill needed at this time -Follow up 3 weeks (3) HTN (hypertension): Code(s): I10 - Essential (primary) hypertension Category: Medical Qualifiers: Hypertension type: essential hypertension Qualified Code(s): I10 - Essential (primary) hypertension Plan: -B/p cuff script from PCP resent to pt's preferred pharmacy Medications: New nicotine (polacrilex) 2 mg buccal Q4H PRN 72 ea 0RF nicotine cravings Refilled miscellaneous medical supply (Blood Pressure Cuff) test once per day / PRN 1 ea 0RF I10 - Essential (primary) hypertension
[2023-10-12 11:00] VITALS: BP 144/86; PULSE 88; O2SAT 94
== END 2023-10-12 11:38 | disposition home or self-care (01) ==
PROVIDERS: PCP Physician Assistant; Visit Provider Nurse Practitioner Family
DX: F11.20 Opioid dependence, uncomplicated (principal); F17.200 Nicotine dependence, unspecified, uncomplicated; I10 Essential (primary) hypertension
CPT/HCPCS: 99213

== ENCOUNTER → 2023-10-12 10:57 | Outpatient (BNVA) | payer OTHER, SELFPAY | PROVIDERS: PCP Physician Assistant; Visit Provider Nurse Practitioner Family | DX: F11.20 Opioid dependence, uncomplicated (principal); I10 Essential (primary) hypertension; F17.210 Nicotine dependence, cigarettes, uncomplicated; Z51.81 Encounter for therapeutic drug level monitoring; Z79.899 Other long term (current) drug therapy | CPT/HCPCS: 99212 ==

== ENCOUNTER 2023-11-17 11:02 | Outpatient (AMB) | payer OTHER, SELFPAY ==
--- NOTE | 2023-11-17 11:12 | A.OFFVISCC_ITS ---
Intake Visit Reasons: MAT Visit Allergies codeine [CODEINE] Allergy (Mild, Verified 10/11/23 11:49) RASH varenicline [From Chantix] Allergy (Unknown, Verified 10/11/23 11:49) headaches venlafaxine [From Effexor] Adverse Reaction (Mild, Verified 10/11/23 11:49) gi upset HPI HPI MAT Visit: Details: Patient presents for follow up Currently prescribed suboxone 12mg daily (8mg +4mg) Tolerating medication without any issues No questions or concerns at this time Provided resources on transportation and activities via [employer] on [employer] [facility] Medical History Opioid dependence Anxiety History of chronic back pain Hx of alopecia History of opioid abuse Depression Hyperlipidemia Right lumbar radiculopathy Bipolar 1 disorder Surgical History History of oral surgery Hx of tubal ligation History of carpal tunnel release of both wrists Family History Father No problems noted. Mother Heart disease Diabetes Brother Heart disease Brother Heart disease Sister Diabetes Social History (Updated 10/11/23 @ 11:54 by Narayan Clifton PA-C) Housing: House Are you a primary health care attorney to a significant other at home: No Alcohol intake: never Patient Tobacco Use Status: Former Tobacco user Tobacco use type: Cigarette Cigarettes Per Day: 0 (3 a month) Years Smoked: 40 +/- e-Cigarette/Vaping Use: Never Used Second Hand Smoke Exposure: No service: No Current occupational status: unemployed Cognitive needs: No Hearing needs: No Vision needs: No Review of Systems Const Reports as per HPI Physical Exam Const General: cooperative and no acute distress Resp Effort & Inspection: normal respiratory effort and able to speak in complete sentences Psych Appearance: grossly normal Mental Status: mental status grossly normal Speech and movement: Normal speech and movement present Affect: normal affect Attitude: cooperative Thought process: Normal thought process present Assessment & Plan Assessment & Plan (1) Opioid dependence: Code(s): F11.20 - Opioid dependence, uncomplicated Category: Medical Qualifiers: Substance use status: uncomplicated Qualified Code(s): F11.20 - Opioid dependence, uncomplicated Plan: * continue suboxone at current dose * no refill needed at this time * follow up week December
== END 2023-11-17 14:20 | disposition home or self-care (01) ==
PROVIDERS: PCP Physician Assistant; Visit Provider Nurse Practitioner Psychiatric/Mental Health
DX: F11.20 Opioid dependence, uncomplicated (principal)
CPT/HCPCS: 99213

== ENCOUNTER → 2023-11-17 11:02 | Outpatient (BNVA) | payer OTHER, SELFPAY | PROVIDERS: PCP Physician Assistant; Visit Provider Nurse Practitioner Psychiatric/Mental Health | DX: F11.20 Opioid dependence, uncomplicated (principal); I10 Essential (primary) hypertension; Z51.81 Encounter for therapeutic drug level monitoring; Z79.899 Other long term (current) drug therapy | CPT/HCPCS: 99212 ==

== ENCOUNTER 2023-12-30 10:59 | Outpatient (AMB) | payer OTHER, SELFPAY ==
--- NOTE | 2023-12-30 11:15 | MHC.AM.SUB ---
Intake Visit Reasons: MAT Visit Allergies codeine [CODEINE] Allergy (Mild, Verified 10/11/23 11:49) RASH varenicline [From Chantix] Allergy (Unknown, Verified 10/11/23 11:49) headaches venlafaxine [From Effexor] Adverse Reaction (Mild, Verified 10/11/23 11:49) gi upset HPI HPI MAT Visit: Details: Patient presents for follow up Currently prescribed Suboxone 8mg QD and 4mg QD Tolerating current dose no questions or concerns at this time PFSH Medical History Opioid dependence Anxiety History of chronic back pain Hx of alopecia History of opioid abuse Depression Hyperlipidemia Right lumbar radiculopathy Bipolar 1 disorder Surgical History History of oral surgery Hx of tubal ligation History of carpal tunnel release of both wrists Family History Father No problems noted. Mother Heart disease Diabetes Brother Heart disease Brother Heart disease Sister Diabetes Social History (Updated 10/11/23 @ 11:54 by Narayan Clifton PA-C) Housing: House Are you a primary hospice care transitions coordinator to a significant other at home: No Alcohol intake: never Patient Tobacco Use Status: Former Tobacco user Tobacco use type: Cigarette Cigarettes Per Day: 0 (3 a month) Years Smoked: 40 +/- e-Cigarette/Vaping Use: Never Used Second Hand Smoke Exposure: No service: No Current occupational status: unemployed Cognitive needs: No Hearing needs: No Vision needs: No Review of Systems Const Reports as per HPI and Reports no additional complaints Physical Exam Const General: cooperative and no acute distress Psych Appearance: grossly normal Mental Status: mental status grossly normal Speech and movement: Normal speech and movement present Affect: normal affect Attitude: cooperative Thought process: Normal thought process present Assessment & Plan Assessment & Plan (1) Opioid dependence: Code(s): F11.20 - Opioid dependence, uncomplicated Category: Medical Qualifiers: Substance use status: uncomplicated Qualified Code(s): F11.20 - Opioid dependence, uncomplicated Plan: continue suboxone at current dose refill already sent follow up 8 weeks
== END 2023-12-30 11:44 | disposition home or self-care (01) ==
PROVIDERS: PCP Physician Assistant; Visit Provider Nurse Practitioner Psychiatric/Mental Health
DX: F11.20 Opioid dependence, uncomplicated (principal)
CPT/HCPCS: 99213

== ENCOUNTER → 2023-12-30 10:59 | Outpatient (BNVA) | payer OTHER, SELFPAY | PROVIDERS: PCP Physician Assistant; Visit Provider Nurse Practitioner Psychiatric/Mental Health | DX: F11.20 Opioid dependence, uncomplicated (principal); Z51.81 Encounter for therapeutic drug level monitoring | CPT/HCPCS: 99212 ==

== ENCOUNTER 2024-01-11 16:11 | Outpatient (AMB) | payer OTHER, SELFPAY ==
[2024-01-11 16:14] VITALS: BP 126/62; PULSE 97; O2SAT 95; BMI 37.8
--- NOTE | 2024-01-11 16:14 | MHC.PC.OV ---
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 Accompanied by: Self / Same As Patient Allergies codeine [CODEINE] Allergy (Mild, Verified 01/11/24 16:19) RASH varenicline [From Chantix] Allergy (Unknown, Verified 01/11/24 16:19) headaches venlafaxine [From Effexor] Adverse Reaction (Mild, Verified 01/11/24 16:19) gi upset Medication List - Last Reviewed 01/11/24 by HENRI Smith albuterol sulfate 90 mcg/actuation 1 inh inhalation QID PRN 30 days atorvastatin 10 mg PO DAILY 90 days buprenorphine-naloxone 4-1 mg 1 film buccal Q24H buprenorphine-naloxone 8-2 mg 1 film buccal DAILY cetirizine 10 mg PO DAILY clonazepam 1 mg PO DAILY 30 days divalproex ER 250 mg PO DAILY 90 days ferrous sulfate 325 mg PO DAILY 30 days fluticasone propionate 50 mcg/actuation (Allergy Relief (fluticasone)) 1 spray intranasal DAILY furosemide (Lasix) 40 mg PO DAILY 30 days ibuprofen 800 mg PO TID PRN lisinopril-hydrochlorothiazide 20-12.5 mg 1 tab PO DAILY 90 days miscellaneous medical supply (Blood Pressure Cuff) test once per day / PRN naloxone 4 mg/actuation (Narcan) 4 mg intranasal Q2M PRN nicotine (polacrilex) 2 mg buccal Q4H PRN omeprazole 20 mg PO DAILY 90 days Tobacco use date assessed: 10/11/23 Dental Screening Dental Screen Date: 10/11/23 HPI f/u HTN HPI Details patient is a 63-year-old female here today for follow-up visit.. ?Patient has a past medical history significant for hyperlipidemia, generalized anxiety disorder, major depression, Bipolar disorder. Concern--> reports she continues to lower back and thoracic chronic spine pain. She is interested now getting x-rays and doing physical therapy. She does also continue to have intermittent swelling in her lower extremities that she relates to increase salt ingestion recently. Also been having muscle cramps worse at night and occasionally during the day. She is asking for some a muscle relaxer to use on an as needed basis for her pain. .. Hypertension: Blood pressure remains slightly elevated today in office. She also reports having muscle cramps at night and occasionally during the day. Will take her off hydrochlorothiazide as this may be a causative agent. PLAN- will switch her to losartan 20 mg a single agent. .. Former smoker: She does admit to smoking a few cigarettes occasionally. Opiate dependency: Continues to follow the [facility] [place] and continues on Suboxone. Has been sober from street opiates for quite awhile now. .. Anxiety : She reports anxiety has been fairly well controlled with current doses of her mental health medication. . Lower extremity edema: Has noted worsening lower extremity edema over the last several weeks. Has noted increased weight gain now at 213 lb. ..HLD:? Patient is compliant with statin therapy, will get repeat lipid panel to ensure appropriate LDL. ? .. ? MDD: ? She reports she is feeling better since she has been talking to a mental health therapist ( dorian)? through [facility]? Has not been set up with a psychiatrist yet. She continues on divalproex and clonazepam which have been helpful. [facility] Medical History Opioid dependence Anxiety History of chronic back pain Hx of alopecia History of opioid abuse Depression Hyperlipidemia Right lumbar radiculopathy Bipolar 1 disorder Surgical History History of oral surgery Hx of tubal ligation History of carpal tunnel release of both wrists Family History Father No problems noted. Mother Heart disease Diabetes Brother Heart disease Brother Heart disease Sister Diabetes Social History Housing: House Are you a primary manager primary care to a significant other at home: No Alcohol intake: never Patient Tobacco Use Status: Former Tobacco user Tobacco use type: Cigarette Cigarettes Per Day: 0 (3 a month) Years Smoked: 40 +/- e-Cigarette/Vaping Use: Never Used Second Hand Smoke Exposure: No service: No Current occupational status: unemployed Cognitive needs: No Hearing needs: No Vision needs: No Questionnaire Thrive Questionnaire Date Thrive assessed: 10/11/23 CLEMENT-7 AMB Questionnaire CLEMENT-7 Date CLEMENT - 7 assessed: 10/11/23 Source: Developed by Drs. Grady Gutierrez, Stella Gayle, Kurtis Myles and colleagues, with an educational jamal from [employer]. Review of Systems Const Denies headache(s) Eyes Denies loss of vision ENT Denies vertigo, Denies dizziness, Denies headache(s) and Denies sore throat Card Denies chest pain, Denies leg edema and Denies lightheadedness Resp Denies cough, Denies hemoptysis and Denies wheezing GI Denies abdominal pain, Denies melena, Denies constipation, Denies diarrhea and Denies vomiting Denies urinary frequency, Denies dysuria and Denies urinary urgency Musc Reports back pain, Reports arthralgias, Denies joint swelling, Reports muscle cramps, Denies numbness, Reports stiffness and Denies tingling Neuro Denies Abnormal speech present, Denies behavioral changes, Denies vertigo, Denies dizziness, Denies headache(s), Denies loss of vision, Denies memory loss, Denies numbness and Denies tingling Psych Denies anxiety, Denies behavioral changes, Denies depression, Denies memory loss and Denies panic attacks Ye/Lymph Denies easy bleeding and Denies easy bruising Aller/Immun Denies wheezing Physical exam (Primary Care) Vital Signs: Last Vital Signs Pulse 97 01/11/24 16:14 BP 126/62 01/11/24 16:14 Pulse Ox 95 01/11/24 16:14 Oxygen Delivery Method Room Air 01/11/24 16:14 BMI result Body Mass Index 37.8 Tobacco/Smoking Status: Tobacco use Status Tobacco use date assessed 10/11/23 01/11/24 16:16 Patient Tobacco Use Status Former Tobacco user 01/11/24 16:16 Tobacco use type Cigarette 01/11/24 16:16 e-Cigarette/Vaping Use Never Used 01/11/24 16:16 Thrive Assessment: Date of Thrive Assessment Date Thrive assessed 10/11/23 01/11/24 16:16 Const General: healthy appearing, no acute distress, alert and awake Nutritional Appearance: well nourished Orientation/consciousness: oriented to person, oriented to place and oriented to time HENMT Ears: TM's normal bilaterally General nose exam: Normal nasal mucous membranes and turbinates present Eyes Conjunctivae: conjunctivae normal Sclerae: sclerae normal Pupils: Equal, round and reactive pupils present Neck Neck: Yes no lymphadenopathy and Yes no JVD Thyroid: Thyroid normal Carotids: no bruits Resp Effort & Inspection: normal respiratory effort and not tachypneic Auscultation: no crackles, no rales, no rhonchi and no wheezes Cardio Rate: regular rate Rhythm: regular rhythm Heart sounds: no murmurs and normal S1 and S2 GI Palpation (GI): Soft to palpation, nontender, no hepatomegaly and no splenomegaly Auscultation: normal bowel sounds Skin General skin exam: no rashes or lesions noted and dry skin Neuro General: oriented to person, oriented to place and oriented to time Cranial nerves: Yes Equal, round and reactive pupils present Speech: No Abnormal speech present Gait exam (Neuro): Normal gait present Motor exam (neuro): no tremor noted Extrem Right upper extremity: full ROM Left upper extremity: full ROM Right lower extremity: full ROM; no edema Left lower extremity: full ROM; no edema Psych Mental Status: mental status grossly normal Speech and movement: Normal speech and movement present Affect: normal affect Attitude: cooperative Thought process: Normal thought process present Assessment and Plan Assessment & Plan (1) MDD (major depressive disorder), recurrent episode, moderate: Code(s): F33.1 - Major depressive disorder, recurrent, moderate Plan: Patient does have history of major depressive disorder/ bipolar disorder. Continues on mood stabilization with divalproex She continues to speak with mental health therapist. (2) CLEMENT (generalized anxiety disorder): Code(s): F41.1 - Generalized anxiety disorder Plan: Again continues to speak with a mental health therapist and takes clonazepam 1 mg daily with good effect on reducing her anxieties. (3) Opioid dependence: Code(s): F11.20 - Opioid dependence, uncomplicated Qualifiers: Substance use status: uncomplicated Qualified Code(s): F11.20 - Opioid dependence, uncomplicated Plan: She is following he commodity management specialist and continues on Suboxone for chronic pain which has been helpful. (4) COPD (chronic obstructive pulmonary disease): Code(s): J44.9 - Chronic obstructive pulmonary disease, unspecified Qualifiers: COPD type: chronic bronchitis Chronic bronchitis type: simple Qualified Code(s): J41.0 - Simple chronic bronchitis Plan: Occasionally smokes cigarettes, has generally quit her habitual use of tobacco.. She does have an albuterol inhaler available to her for cough and shortness of breath. Though generally her breathing has been fine. (5) Anemia: Code(s): D64.9 - Anemia, unspecified Qualifiers: Anemia type: iron deficiency Iron deficiency anemia type: unspecified iron deficiency Qualified Code(s): D50.9 - Iron deficiency anemia, unspecified Plan: Will continue to follow CBC (6) Hyperlipidemia: Code(s): E78.5 - Hyperlipidemia, unspecified Qualifiers: Hyperlipidemia type: mixed hyperlipidemia Qualified Code(s): E78.2 - Mixed hyperlipidemia Plan: Most recent lipid panel showing elevated total cholesterol and LDL. She continues on statin therapy at this time without any side effect. Will recheck lipid panel to evaluate for improvement. Goal LDL to be below 130 (7) Bipolar 1 disorder: Code(s): F31.9 - Bipolar disorder, unspecified Plan: Patient continues on mood stabilization with divalproex. She reports she is fairly stable from a mental health point of view. She does have a mental health therapist she is speaks to on a regular basis. (8) HTN (hypertension): Code(s): I10 - Essential (primary) hypertension Qualifiers: Hypertension type: essential hypertension Qualified Code(s): I10 - Essential (primary) hypertension Plan: Patient's blood pressure slightly elevated today in office. Will add on hydrochlorothiazide 12.5 mg. Advised to monitor blood pressure with goal blood pressure to be below 140/90 (9) Thoracic spine pain: Code(s): M54.6 - Pain in thoracic spine Plan: Willing to do physical therapy and get x-rays (10) Lumbar spine pain: Code(s): M54.50 - Low back pain, unspecified Plan: Willing to do physical therapy and get x-rays (11) Bilateral hip pain: Code(s): M25.551 - Pain in right hip; M25.552 - Pain in left hip Plan: Willing to do physical therapy. Orders: Orders XR thoracic spine 3V 01/11/24 M54.6 - Pain in thoracic spine PT Evaluation and Treatment 01/11/24 M51.9 - Unspecified thoracic, thoracolumbar and lumbosacral intervertebral disc disorder, M54.50 - Low back pain, unspecified XR lumbar spine 2-3V 01/11/24 M54.50 - Low back pain, unspecified XR hip LT 1V 01/11/24 M25.551 - Pain in right hip, M25.552 - Pain in left hip XR hip RT 1V 01/11/24 M25.551 - Pain in right hip, M25.552 - Pain in left hip Medications: New carisoprodol (Soma) 350 mg PO BEDTIME PRN 7 tabs 0RF muscle pain 7 days M54.50 - Low back pain, unspecified lisinopril 20 mg PO DAILY 30 tabs 1RF 30 days I10 - Essential (primary) hypertension Refilled divalproex ER 250 mg PO DAILY 90 tabs 2RF 90 days F31.9 - Bipolar disorder, unspecified Discontinued lisinopril-hydrochlorothiazide 20-12.5 mg Discontinued Reason: Doctor's Order 1 tab PO DAILY 90 days 90 tabs 1RF I10 - Essential (primary) hypertension Coding Level of Care Code Est Pt Level 4 (00166) Diagnoses MDD (major depressive disorder), recurrent episode, moderate F33.1 CLEMENT (generalized anxiety disorder) F41.1 Uncomplicated opioid dependence F11.20 Substance use status: uncomplicated Simple chronic bronchitis J41.0 COPD type: chronic bronchitis Chronic bronchitis type: simple Iron deficiency anemia, unspecified iron deficiency anemia type D50.9 Anemia type: iron deficiency Iron deficiency anemia type: unspecified iron deficiency Mixed hyperlipidemia E78.2 Hyperlipidemia type: mixed hyperlipidemia Bipolar 1 disorder F31.9 Essential hypertension I10 Hypertension type: essential hypertension Thoracic spine pain M54.6 Lumbar spine pain M54.50 Bilateral hip pain M25.551; M25.552
== END 2024-01-11 16:47 | disposition home or self-care (01) ==
PROVIDERS: PCP Physician Assistant; Visit Provider Physician Assistant
DX: J41.0 Simple chronic bronchitis (principal); F11.20 Opioid dependence, uncomplicated; F31.9 Bipolar disorder, unspecified; F41.1 Generalized anxiety disorder; D50.9 Iron deficiency anemia, unspecified; E78.2 Mixed hyperlipidemia; I10 Essential (primary) hypertension; M54.6 Pain in thoracic spine; M54.50 Low back pain, unspecified; M25.551 Pain in right hip; M25.552 Pain in left hip
CPT/HCPCS: 99214

== ENCOUNTER 2024-01-19 09:01 | Outpatient (REF) | payer OTHER, SELFPAY ==
--- NOTE | ~2024-01-19 | XR_ITS ---
EXAMINATION: X-RAY THORACIC SPINE X-RAY LUMBAR SPINE CLINICAL INFORMATION: Pain thoracic spine, low back pain. TECHNIQUE: 3 views of the thoracic spine, 3 views of the lumbar spine. COMPARISON: None available. FINDINGS: Thoracic spine: Mild dextroscoliosis of the thoracic spine. Moderate multilevel degenerative changes in the thoracic spine. Diffuse demineralization. Atherosclerotic aortic calcifications. Limited views of the medial lungs demonstrate bilateral bronchial wall thickening and interstitial prominence, which should be evaluated with dedicated views of the chest. Degenerative changes on limited views of the cervical spine. Lumbar spine: Levoscoliosis of the lumbar spine. Facet arthritis in the lower lumbar spine. Extensive atherosclerotic aortoiliac calcifications. Moderate multilevel lumbar spondylosis with loss of disc space height at L3-L4, L4-L5 and L5-S1. Grade 1 anterolisthesis of L5 on S1. XR/XR thoracic spine 3V IMPRESSION: 1. Moderate multilevel degenerative changes in the thoracic spine. 2. Moderate multilevel lumbar spondylosis with loss of disc space height at L3-L4, L4-L5 and L5-S1. 3. Grade 1 anterolisthesis of L5 on S1. 4. Limited views of the medial lungs demonstrate bilateral bronchial wall thickening and interstitial prominence, which should be evaluated with dedicated views of the chest. Electronically signed by: Lashon Verde MD 02/08/2024 10:44 AM EDT
--- NOTE | ~2024-01-19 | XR_ITS ---
EXAMINATION: X-RAY THORACIC SPINE X-RAY LUMBAR SPINE CLINICAL INFORMATION: Pain thoracic spine, low back pain. TECHNIQUE: 3 views of the thoracic spine, 3 views of the lumbar spine. COMPARISON: None available. FINDINGS: Thoracic spine: Mild dextroscoliosis of the thoracic spine. Moderate multilevel degenerative changes in the thoracic spine. Diffuse demineralization. Atherosclerotic aortic calcifications. Limited views of the medial lungs demonstrate bilateral bronchial wall thickening and interstitial prominence, which should be evaluated with dedicated views of the chest. Degenerative changes on limited views of the cervical spine. Lumbar spine: Levoscoliosis of the lumbar spine. Facet arthritis in the lower lumbar spine. Extensive atherosclerotic aortoiliac calcifications. Moderate multilevel lumbar spondylosis with loss of disc space height at L3-L4, L4-L5 and L5-S1. Grade 1 anterolisthesis of L5 on S1. XR/XR lumbar spine 2-3V IMPRESSION: 1. Moderate multilevel degenerative changes in the thoracic spine. 2. Moderate multilevel lumbar spondylosis with loss of disc space height at L3-L4, L4-L5 and L5-S1. 3. Grade 1 anterolisthesis of L5 on S1. 4. Limited views of the medial lungs demonstrate bilateral bronchial wall thickening and interstitial prominence, which should be evaluated with dedicated views of the chest. Electronically signed by: Lashon Verde MD 02/08/2024 10:44 AM EDT
--- NOTE | ~2024-01-19 | XR_ITS ---
EXAMINATION: XR HIP, BILATERAL CLINICAL INFORMATION: Bilateral hip pain COMPARISON: Radiographs 02/08/2020 TECHNIQUE: AP and frog lateral views of each hip FINDINGS: Small marginal osteophytes along the acetabular rim bilaterally without significant joint space narrowing. No fracture. No suspicious bony lesion. Subcutaneous edema is noted lateral to both hips. XR/XR hip LT min 2V IMPRESSION: Mild bilateral hip osteoarthritis. No acute osseous abnormality. Electronically signed by: Yaniv Barry MD 01/25/2024 10:26 AM EDT
--- NOTE | ~2024-01-19 | XR_ITS ---
EXAMINATION: XR HIP, BILATERAL CLINICAL INFORMATION: Bilateral hip pain COMPARISON: Radiographs 02/08/2020 TECHNIQUE: AP and frog lateral views of each hip FINDINGS: Small marginal osteophytes along the acetabular rim bilaterally without significant joint space narrowing. No fracture. No suspicious bony lesion. Subcutaneous edema is noted lateral to both hips. XR/XR hip RT min 2V IMPRESSION: Mild bilateral hip osteoarthritis. No acute osseous abnormality. Electronically signed by: Yaniv Barry MD 01/25/2024 10:26 AM EDT
[2024-01-19 10:10] LABS: Hematocrit 35.7 % (37.0-47.0); Hemoglobin 11.5 g/dl (12.0-16.0); Mean Corpuscular HGB Conc 32.2 g/dl (31.0-35.0); Mean Corpuscular Volume 89.9 fL (80.0-98.0); Mean Platelet Volume 11.2 fL (9.4-12.3); Platelet Count 313 X10*3/uL (160-400); Red Blood Count 3.97 X10*6/uL (4.20-5.50); Red Cell Distribution Width 12.9 % (11.0-16.0)
[2024-01-19 10:17] LABS: Appearance Urine Cloudy; Color Urine Yellow; Glucose Urine UA Negative (Negative); Leukocyte Esterase Urine Trace (Negative); Nitrite Urine Negative (Negative); Specific Gravity - Urine 1.015 (1.005-1.025); UMIC TRIGGER UACC YES; Urine Blood Negative (Negative); Urine Ketones Negative (Negative); Urine Protein Trace mg/dL (Neg-Trace)
[2024-01-19 10:22] LABS: Bacteria Urine 2+ (None Seen); Hyaline Casts Urine 0-2 /LPF (0-2); RBC Urine 0-2 /HPF (0-2); Squamous Epithelial Cell Urine >20 /HPF (0-2); UACC Culture Trigger YES
[2024-01-19 10:46] LABS: Creatinine Urine 136.89 mg/dL; Microalbum/Creatinine Ratio Ur 44.5 ug/mg cr (<30)
[2024-01-19 10:48] LABS: Alanine Aminotransferase 25 U/L (0-31); Alkaline Phosphatase 88 U/L (39-117); Anion Gap 13 (12-20); Aspartate Amino Transferase 23 U/L (5-31); Bilirubin Total 0.4 mg/dL (0.0-1.0); Blood Urea Nitrogen 14 mg/dL (9-16); Calcium 9.4 mg/dL (8.4-10.2); Carbon Dioxide 28 mmol/L (22-29); Chloride 105 mmol/L (96-108); Cholesterol 204 mg/dL (<200); Estimated Glomerular Filt Rate 46; Glucose Fasting 129 mg/dL (60-99); HDL Cholesterol 24 mg/dL (>40); LDL Cholesterol Calculated 137 mg/dL (<100); Potassium 4.3 mmol/L (3.3-5.1); Sodium 142 mmol/L (135-145); Total Protein 7.3 g/dL (6.5-8.0); Triglycerides 216 mg/dL (<150)
== END 2024-01-19 09:02 | disposition home or self-care (01) ==
LOC: HO.XRAY 09:01
PROVIDERS: PCP Physician Assistant; Visit Provider Physician Assistant
DX: E78.2 Mixed hyperlipidemia (principal); R39.9 Unspecified symptoms and signs involving the genitourinary system; M54.6 Pain in thoracic spine; M54.50 Low back pain, unspecified; M25.551 Pain in right hip; M25.552 Pain in left hip; I10 Essential (primary) hypertension
CPT/HCPCS: 36415; 72072; 72100; 73502; 80053; 80061; 81001; 82043; 82570; 85027; 87086

== ENCOUNTER 2024-02-23 10:02 | Outpatient (RCR) | payer OTHER, SELFPAY ==
--- NOTE | 2024-04-27 09:44 | MHC.PT.DC ---
[facility] [place] Office [place] Office [place] Office [address] Devendra Lima [address] [phone] F: [phone] F: [phone] F: [phone] F: [phone] Physical Therapy Discharge Report Diagnosis: BACK PAIN (KP) Date of Surgery: Date of Evaluation: 02/23/24 Date of Discharge: 03/25/24 Treatments to Date: 1 Cancellations to Date: 4 No Shows to Date: 1 Discharge Status: Patient Elected to Stop Visit Non-compliance Discharge Summary: Attended eval only, cancelled multiple visits due to swelling in legs, no showed for last scheduled visit and is DCed per dept policy Electronically signed by: Ivone Patino PT DPT Please sign and return to therapist. Thank you for your referral.
== END 2024-04-27 09:44 | disposition home or self-care (01) ==
LOC: HO.PT 10:02
PROVIDERS: PCP Physician Assistant; Visit Provider Physician Assistant
DX: M51.9 Unspecified thoracic, thoracolumbar and lumbosacral intervertebral disc disorder (principal); M54.50 Low back pain, unspecified
CPT/HCPCS: 97110; 97162; 97535

== ENCOUNTER 2024-02-24 08:48 | Outpatient (AMB) | payer OTHER, SELFPAY ==
--- NOTE | 2024-02-24 08:54 | A.OFFVISCC_ITS ---
Intake Visit Reasons: MAT Tele Allergies codeine [CODEINE] Allergy (Mild, Verified 01/11/24 16:19) RASH varenicline [From Chantix] Allergy (Unknown, Verified 01/11/24 16:19) headaches venlafaxine [From Effexor] Adverse Reaction (Mild, Verified 01/11/24 16:19) gi upset HPI HPI MAT Tele: Details: Patient presents for follow up via telehealth Currently prescribed suboxone 12mg daily no issues related to medication tolerating dose reports that she has started PT for her back PFSH Medical History Opioid dependence Anxiety History of chronic back pain Hx of alopecia History of opioid abuse Depression Hyperlipidemia Right lumbar radiculopathy Bipolar 1 disorder Surgical History History of oral surgery Hx of tubal ligation History of carpal tunnel release of both wrists Family History Father No problems noted. Mother Heart disease Diabetes Brother Heart disease Brother Heart disease Sister Diabetes Social History Housing: House Are you a primary long term care administrator to a significant other at home: No Alcohol intake: never Patient Tobacco Use Status: Former Tobacco user Tobacco use type: Cigarette Cigarettes Per Day: 0 (3 a month) Years Smoked: 40 +/- e-Cigarette/Vaping Use: Never Used Second Hand Smoke Exposure: No service: No Current occupational status: unemployed Cognitive needs: No Hearing needs: No Vision needs: No Review of Systems Const Reports as per HPI Telehealth Telehealth Telehealth Platform: Telephone Location of provider rendering services: practice address Location of patient: address on file Patient Identification confirmed using: Name, : Yes Telehealth method: voice only Patient verbally consented to treatment: Yes Patient verbally consented to billing insurance company: Yes Minutes spent on Phone/Video with Pt.: 15 Assessment & Plan Assessment & Plan (1) Opioid dependence: Code(s): F11.20 - Opioid dependence, uncomplicated Category: Medical Qualifiers: Substance use status: uncomplicated Qualified Code(s): F11.20 - Opioid dependence, uncomplicated Plan: * continue suboxone at current dose * follow up 8 weeks Medications: Refilled buprenorphine-naloxone 8-2 mg 1 film buccal DAILY 60 ea 0RF buprenorphine-naloxone 4-1 mg 1 film buccal Q24H 60 ea 0RF
== END 2024-02-24 10:42 | disposition home or self-care (01) ==
PROVIDERS: PCP Physician Assistant; Visit Provider Nurse Practitioner Psychiatric/Mental Health
DX: F11.20 Opioid dependence, uncomplicated (principal)
CPT/HCPCS: 99213

== ENCOUNTER → 2024-02-24 08:48 | Outpatient (BNVA) | payer OTHER, SELFPAY | PROVIDERS: PCP Physician Assistant; Visit Provider Nurse Practitioner Psychiatric/Mental Health | DX: Z51.81 Encounter for therapeutic drug level monitoring (principal); F11.20 Opioid dependence, uncomplicated; I10 Essential (primary) hypertension ==

== ENCOUNTER 2024-03-09 10:24 | Outpatient (AMB) | payer OTHER, SELFPAY ==
[2024-03-09 10:26] VITALS: BP 140/68; PULSE 94; O2SAT 94; BMI 37.7
--- NOTE | 2024-03-09 10:26 | A.OFFVIS_ITS ---
Vital Signs 03/09/24 10:26 Height 5 ft 3 in Weight 212 lb 15.465 oz BMI 37.7 BP 140/68 H Blood Pressure Location Rt brachial Position Sitting Pulse 94 Pulse Source Pulse Oximeter Pulse Oximetry (%) 94 Oxygen Delivery Method Room Air Intake Visit Reasons: Colonoscopy Screening Intake Note: Relevant Flags or Indicators ? Requires Director Of Distance Learning? N Mally presents in office today for a scheduled colo consult. CC; Since last visit; labs ordered ? via PCP within the last year. Rx ordered ? omeprazole per PCP. Diagnostics/images ordered ? other specialties. Relevant GI Sx as reported per pt? Reflux ? Fecal abnormalities o?? Constipation ? Hx of any recent surgeries? None ? Pertinent FMHx? Diabetes. Mother had lung cancer. Director Of Distance Learning Required: No Allergies codeine [CODEINE] Allergy (Mild, Verified 03/09/24 10:27) RASH varenicline [From Chantix] Allergy (Unknown, Verified 03/09/24 10:27) headaches venlafaxine [From Effexor] Adverse Reaction (Mild, Verified 03/09/24 10:27) gi upset HPI HPI Colonoscopy Screening: Details: 63 year old? female with past medical history of lumbar pain, osteoarthritis, anemia, COPD, peripheral edema, MDD, GERD, opiate dependence, anxiety, hyperlipidemia, bipolar disorder is here today for pre colonoscopy screening.? Patient was sent to us by her PCP.? This is her first colonoscopy screening.? Patient denies any gastrointestinal symptoms in the past or at present.? However patient does admit that she is constipated. Now that she is on Suboxone there will be times when she has no bowel movement for almost a week. Denies any personal or family history of gastrointestinal disease, colon polyps, or CRC.? Denies history of difficulty with sedation or anesthesia in the past.? Negative for history of sleep apnea.? Denies any history of cardiac, renal, pulmonary, or hepatic disease.?? No history of infectious? diseases like hepatitis A, B, C, HIV or tuberculosis.? Patient is not on any anticoagulation [facility] Medical History Opioid dependence Anxiety History of chronic back pain Hx of alopecia History of opioid abuse Depression Hyperlipidemia Right lumbar radiculopathy Bipolar 1 disorder Surgical History History of oral surgery Hx of tubal ligation History of carpal tunnel release of both wrists Family History Father No problems noted. Mother Heart disease Diabetes Brother Heart disease Brother Heart disease Sister Diabetes Social History Housing: House Are you a primary rn patient care to a significant other at home: No Alcohol intake: never Patient Tobacco Use Status: Former Tobacco user Tobacco use type: Cigarette Cigarettes Per Day: 0 (3 a month) Years Smoked: 40 +/- e-Cigarette/Vaping Use: Never Used Second Hand Smoke Exposure: No service: No Current occupational status: unemployed Cognitive needs: No Hearing needs: No Vision needs: No Review of Systems Const Denies weight gain and Denies weight loss ENT Reports no additional complaints, Denies dysphagia and Denies odynophagia Card Reports no additional complaints Resp Reports no additional complaints GI Denies abdominal pain, Denies belching, Denies melena, Denies bloating, Denies change in bowel habits, Reports constipation, Denies dysphagia, Denies excessive flatus, Denies dyspepsia, Denies heartburn, Denies diarrhea, Denies loose stools, Denies nausea, Denies odynophagia and Denies vomiting Reports no additional complaints Musc Reports no additional complaints Neuro Reports no additional complaints Psych Reports no additional complaints Endo Reports no additional complaints Physical Exam Vital Signs: Last Vital Signs Pulse 94 03/09/24 10:26 BP 140/68 H 03/09/24 10:26 Pulse Ox 94 03/09/24 10:26 Oxygen Delivery Method Room Air 03/09/24 10:26 BMI result Body Mass Index 37.7 Const General: healthy appearing and no acute distress Nutritional Appearance: obese Orientation/consciousness: patient oriented x3 Resp Effort & Inspection: normal respiratory effort, able to speak in complete sentences, no tracheal deviation and symmetric chest movement Auscultation: clear to auscultation bilaterally Cardio Rate: regular rate GI Inspection: Yes normal to inspection and No distended Palpation (GI): Soft to palpation, not firm, nontender and No hepatosplenomegaly present Auscultation: normal bowel sounds General: Yes no CVA tenderness Back/Spine/Pelvis Back: no CVA tenderness Skin General skin exam: elasticity normal, turgor normal and dry skin Neuro General: patient oriented x3 Extrem General: Yes edema (BLE) Psych Appearance: grossly normal Mental Status: mental status grossly normal Assessment & Plan Assessment & Plan (1) Colon cancer screening: Code(s): Z12.11 - Encounter for screening for malignant neoplasm of colon Category: Medical (2) Constipation: Code(s): K59.00 - Constipation, unspecified Qualifiers: Constipation type: drug induced constipation Qualified Code(s): K59.03 - Drug induced constipation Plan Patient denies any cardiac or respiratory symptoms.? Patient admits to be constipated. Will send her script for Dulcolax. Patient was also encouraged to increase fluid intake and activity to promote better bowel motility. Patient is on Lasix due to bilateral lower extremity edema. Patient reports also pain in the bilateral lower extremities will send her referral to see vascular surgeon. Denies any issues with anesthesia in the past.? Denies any history of sleep apnea.? No history infectious diseases in the past or present.? Not on any anticoagulation therapy.? No family or personal history of colon cancer or polyps.? Patient denies melena, hematochezia, unintentional weight loss or ribbon like stools.? Discussed at length the pre-procedure,? prep, diet & med ications as well as what to expect prior, during and after the procedure.?? Stressed the importance of good bowel prep.? Recommended the use of Vaseline or Calmoseptine OTC & baby wipes with bowel movements to promote comfort.? ?Patient verbalizes understanding and agrees to plan of care.? She was given the opportunity to ask questions and all questions answered.? We will see her after the procedure.? Orders: Referrals Vascular Surgery Referral R60.0 - Localized edema, R60.9 - Edema, unspecified Medications: New bisacodyl (Dulcolax (bisacodyl)) 10 mg (2 x 5 mg) PO BEDTIME 180 tabs 4RF polyethylene glycol 3350 (Miralax) As directed by gastroenterology department at [facility] 238 grams PO ONCE 238 grams 0RF Z12.11 - Encounter for screening for malignant neoplasm of colon Coding Level of Care Code New Pt Level 3 (00781) Diagnoses Colon cancer screening Z12.11 Drug-induced constipation K59.03 Constipation type: drug induced constipation Time Spent (min) 40 Comment 30 minutes spent with patient and additional 10 minutes spent reviewing her records
== END 2024-03-09 11:25 | disposition home or self-care (01) ==
PROVIDERS: PCP Physician Assistant; Visit Provider Nurse Practitioner Family
DX: K59.03 Drug induced constipation (principal); Z01.818 Encounter for other preprocedural examination; Z12.11 Encounter for screening for malignant neoplasm of colon
CPT/HCPCS: 99203

== ENCOUNTER → 2024-03-09 10:24 | Outpatient (BNVA) | payer OTHER, SELFPAY | PROVIDERS: PCP Physician Assistant; Visit Provider Nurse Practitioner Family | DX: Z01.818 Encounter for other preprocedural examination (principal); K21.9 Gastro-esophageal reflux disease without esophagitis; K59.03 Drug induced constipation | CPT/HCPCS: 99202 ==

== ENCOUNTER 2024-03-14 07:29 | Outpatient (REF) | payer OTHER, SELFPAY ==
[2024-03-14 08:43] LABS: Appearance Urine Cloudy; Color Urine Yellow; Glucose Urine UA Negative (Negative); Leukocyte Esterase Urine Small (1+) (Negative); Nitrite Urine Negative (Negative); UMIC TRIGGER UACC YES; Urine Blood Negative (Negative); Urine Ketones Negative (Negative); Urine Protein Negative (Neg-Trace)
[2024-03-14 08:48] LABS: Bacteria Urine 2+ (None Seen); Hyaline Casts Urine 0-2 /LPF (0-2); RBC Urine 0-2 /HPF (0-2); Squamous Epithelial Cell Urine >20 /HPF (0-2); UACC Culture Trigger YES
== END 2024-03-14 07:30 | disposition home or self-care (01) ==
LOC: HO.LAB 07:29
PROVIDERS: PCP Physician Assistant; Visit Provider Physician Assistant
DX: R30.0 Dysuria (principal)
CPT/HCPCS: 81001; 87086

== ENCOUNTER 2024-04-13 09:00 | Outpatient (AMB) | payer OTHER, SELFPAY ==
--- NOTE | 2024-04-13 09:01 | A.OFFVISCC_ITS ---
Intake Visit Reasons: MAT Tele Allergies codeine [CODEINE] Allergy (Mild, Verified 03/09/24 10:27) RASH varenicline [From Chantix] Allergy (Unknown, Verified 03/09/24 10:27) headaches venlafaxine [From Effexor] Adverse Reaction (Mild, Verified 03/09/24 10:27) gi upset HPI HPI MAT Tele: Details: Patient presents for follow up via telehealth Currently prescribed Suboxone 8mg and 4mg daily (12mg) No issues related to medication Reporting that her therapist office closed unexpectedly--she received a letter in the mail---she is already in process of obtaining a new one. Review of Systems Const Reports as per HPI Telehealth Telehealth Telehealth Platform: Telephone Location of provider rendering services: practice address Location of patient: address on file Patient Identification confirmed using: Name, : Yes Telehealth method: voice only Patient verbally consented to treatment: Yes Patient verbally consented to billing insurance company: Yes Minutes spent on Phone/Video with Pt.: 15 Assessment & Plan Assessment & Plan (1) Opioid dependence: Code(s): F11.20 - Opioid dependence, uncomplicated Category: Medical Qualifiers: Substance use status: uncomplicated Qualified Code(s): F11.20 - Opioid dependence, uncomplicated Plan: * continue suboxone at current dose * follow up 2 months PFS Medical History Opioid dependence Anxiety History of chronic back pain Hx of alopecia History of opioid abuse Depression Hyperlipidemia Right lumbar radiculopathy Bipolar 1 disorder Surgical History History of oral surgery Hx of tubal ligation History of carpal tunnel release of both wrists Family History Father No problems noted. Mother Heart disease Diabetes Brother Heart disease Brother Heart disease Sister Diabetes Social History Housing: House Are you a primary laboratory animal caretaker to a significant other at home: No Alcohol intake: never Patient Tobacco Use Status: Former Tobacco user Tobacco use type: Cigarette Cigarettes Per Day: 0 (3 a month) Years Smoked: 40 +/- e-Cigarette/Vaping Use: Never Used Second Hand Smoke Exposure: No service: No Current occupational status: unemployed Cognitive needs: No Hearing needs: No Vision needs: No
== END 2024-04-13 09:36 | disposition home or self-care (01) ==
PROVIDERS: PCP Physician Assistant; Visit Provider Nurse Practitioner Psychiatric/Mental Health
DX: F11.20 Opioid dependence, uncomplicated (principal)
CPT/HCPCS: 98967

== ENCOUNTER → 2024-04-13 09:00 | Outpatient (BNVA) | payer OTHER, SELFPAY | PROVIDERS: PCP Physician Assistant; Visit Provider Nurse Practitioner Psychiatric/Mental Health | DX: Z51.81 Encounter for therapeutic drug level monitoring (principal); F11.20 Opioid dependence, uncomplicated; I10 Essential (primary) hypertension ==

== ENCOUNTER 2024-05-09 11:00 | Outpatient (AMB) | payer OTHER, SELFPAY ==
[2024-05-09 11:09] VITALS: BP 180/90; PULSE 80; O2SAT 95; BMI 34.7
--- NOTE | 2024-05-09 11:09 | MHC.PC.OV ---
Vital Signs 05/09/24 11:09 05/09/24 11:32 Height 5 ft 3 in Weight 196 lb 2 oz BMI 34.7 BP 180/90 H 165/80 H Blood Pressure Location Lt brachial Position Sitting Pulse 80 Pulse Source Pulse Oximeter Pulse Oximetry (%) 95 Oxygen Delivery Method Room Air Intake Visit Reasons: 4mofollowup Commercial Fisherman Required: No Accompanied by: Self / Same As Patient Allergies codeine [CODEINE] Allergy (Mild, Verified 05/09/24 11:22) RASH varenicline [From Chantix] Allergy (Unknown, Verified 05/09/24 11:22) headaches venlafaxine [From Effexor] Adverse Reaction (Mild, Verified 05/09/24 11:22) gi upset Medication List - Last Reconciled 05/09/24 by Narayan Clifton PA-C albuterol sulfate 90 mcg/actuation 1 inh inhalation QID PRN 30 days atorvastatin 10 mg PO DAILY 90 days bisacodyl (Dulcolax (bisacodyl)) 10 mg (2 x 5 mg) PO BEDTIME buprenorphine-naloxone 4-1 mg 1 film buccal Q24H buprenorphine-naloxone 8-2 mg 1 film buccal DAILY carisoprodol (Soma) 350 mg PO BEDTIME PRN 4 days cetirizine 10 mg PO DAILY clonazepam 1 mg PO DAILY 30 days divalproex ER 250 mg PO DAILY 90 days ferrous sulfate 325 mg PO DAILY 30 days fluticasone propionate 50 mcg/actuation (Allergy Relief (fluticasone)) 1 spray intranasal DAILY furosemide (Lasix) 40 mg PO DAILY 30 days ibuprofen 800 mg PO TID PRN lisinopril 20 mg PO DAILY magnesium oxide 500 mg PO DAILY miscellaneous medical supply (Blood Pressure Cuff) test once per day / PRN naloxone 4 mg/actuation (Narcan) 4 mg intranasal Q2M PRN nicotine (polacrilex) 2 mg buccal Q4H PRN nitrofurantoin monohyd/m-cryst 100 mg (Macrobid) 100 mg PO Q12H 5 days omeprazole 20 mg PO DAILY 90 days polyethylene glycol 3350 (Miralax) 238 grams PO ONCE Tobacco use date assessed: 10/11/23 Dental Screening Dental Screen Date: 10/11/23 HPI 4mofollowup HPI Details patient is a 63-year-old female here today for follow-up visit.. ?Patient has a past medical history significant for hyperlipidemia, generalized anxiety disorder, major depression, Bipolar disorder. Concern--> she continues to have intermittent swelling in lower extremities though at this moment she does not have any swelling. She still has an appointment with the vascular specialty here in [place] to evaluate .. Hypertension: Blood pressure elevated today in office. She recently quit smoking and feels like she could having nicotine withdrawal and she has a bit anxious today in office. .. Tobacco dependency: Has recently quit smoking. She admits to having a drag a cigarette from time time. Opiate dependency: Continues to follow the [facility] and continues on Suboxone. Has been sober from street opiates for quite awhile now. .. Anxiety : She reports anxiety has been fairly well controlled with current doses of her mental health medication. . Lower extremity edema: As above her lower extremity edema has resolved though seems to be in an intermittent basis. Has lost weight since last office visit. Still will see vascular to get recommendations. ..HLD:? Patient is compliant with statin therapy, will get repeat lipid panel to ensure appropriate LDL. ? .. ? MDD: ? She reports she is feeling better since she has been talking to a mental health therapist ( dorian)? through [facility]?.? Has not been set up with a psychiatrist yet. She continues on divalproex and clonazepam which have been helpful [facility] Medical History Opioid dependence Anxiety History of chronic back pain Hx of alopecia History of opioid abuse Depression Hyperlipidemia Right lumbar radiculopathy Bipolar 1 disorder Surgical History History of oral surgery Hx of tubal ligation History of carpal tunnel release of both wrists Family History Father No problems noted. Mother Heart disease Diabetes Brother Heart disease Brother Heart disease Sister Diabetes Social History Housing: House Are you a primary out of school hours care worker to a significant other at home: No Alcohol intake: never Patient Tobacco Use Status: Former Tobacco user Tobacco use type: Cigarette Cigarettes Per Day: 0 (3 a month) Years Smoked: 40 +/- e-Cigarette/Vaping Use: Never Used Second Hand Smoke Exposure: No service: No Current occupational status: unemployed Cognitive needs: No Hearing needs: No Vision needs: No Questionnaire Thrive Questionnaire Date Thrive assessed: 10/11/23 CLEMENT-7 AMB Questionnaire CLEMENT-7 Date CLEMENT - 7 assessed: 10/11/23 Source: Developed by Drs. Grady Gutierrez, Stella Galye, Kurtis Myles and colleagues, with an educational jamal from [employer]. Review of Systems Const Denies headache(s) Eyes Denies loss of vision ENT Denies vertigo, Denies dizziness, Denies headache(s) and Denies sore throat Card Denies chest pain, Denies leg edema and Denies lightheadedness Resp Denies cough, Denies hemoptysis and Denies wheezing GI Denies abdominal pain, Denies melena, Denies constipation, Denies diarrhea and Denies vomiting Denies urinary frequency, Denies dysuria and Denies urinary urgency Musc Denies arthralgias, Denies joint swelling, Denies numbness and Denies tingling Neuro Denies Abnormal speech present, Denies behavioral changes, Denies vertigo, Denies dizziness, Denies headache(s), Denies loss of vision, Denies memory loss, Denies numbness and Denies tingling Psych Denies anxiety, Denies behavioral changes, Denies depression, Denies memory loss and Denies panic attacks Ye/Lymph Denies easy bleeding and Denies easy bruising Aller/Immun Denies wheezing Physical exam (Primary Care) Vital Signs: Last Vital Signs Pulse 80 05/09/24 11:09 BP 165/80 H 05/09/24 11:32 Pulse Ox 95 05/09/24 11:09 Oxygen Delivery Method Room Air 05/09/24 11:09 BMI result Body Mass Index 34.7 Tobacco/Smoking Status: Tobacco use Status Tobacco use date assessed 10/11/23 05/09/24 11:13 Patient Tobacco Use Status Former Tobacco user 05/09/24 11:13 Tobacco use type Cigarette 05/09/24 11:13 e-Cigarette/Vaping Use Never Used 05/09/24 11:13 Thrive Assessment: Date of Thrive Assessment Date Thrive assessed 10/11/23 05/09/24 11:13 Const General: healthy appearing, no acute distress, alert and awake Nutritional Appearance: well nourished Orientation/consciousness: oriented to person, oriented to place and oriented to time HENMT Ears: TM's normal bilaterally General nose exam: Normal nasal mucous membranes and turbinates present Eyes Conjunctivae: conjunctivae normal Sclerae: sclerae normal Pupils: Equal, round and reactive pupils present Neck Neck: Yes no lymphadenopathy and Yes no JVD Thyroid: Thyroid normal Carotids: no bruits Resp Effort & Inspection: normal respiratory effort and not tachypneic Auscultation: no crackles, no rales, no rhonchi and no wheezes Cardio Rate: regular rate Rhythm: regular rhythm Heart sounds: no murmurs and normal S1 and S2 GI Palpation (GI): Soft to palpation, nontender, no hepatomegaly and no splenomegaly Auscultation: normal bowel sounds Skin General skin exam: no rashes or lesions noted and dry skin Neuro General: oriented to person, oriented to place and oriented to time Cranial nerves: Yes Equal, round and reactive pupils present Speech: No Abnormal speech present Gait exam (Neuro): Normal gait present Motor exam (neuro): no tremor noted Extrem Right upper extremity: full ROM Left upper extremity: full ROM Right lower extremity: full ROM; no edema Left lower extremity: full ROM; no edema Psych Mental Status: mental status grossly normal Speech and movement: Normal speech and movement present Affect: normal affect Attitude: cooperative Thought process: Normal thought process present Coding Level of Care Code Est Pt Level 4 (55366) Diagnoses Essential hypertension I10 Hypertension type: essential hypertension Bipolar 1 disorder F31.9 Simple chronic bronchitis J41.0 COPD type: chronic bronchitis Chronic bronchitis type: simple Anxiety F41.9 Former smoker Z87.891 Assessment & Plan Assessment & Plan (1) HTN (hypertension): Code(s): I10 - Essential (primary) hypertension Category: Medical Qualifiers: Hypertension type: essential hypertension Qualified Code(s): I10 - Essential (primary) hypertension Plan: Patient's blood pressure elevated today in office. She reports she has been anxious and has stopped smoking cigarettes and likely going through nicotine withdrawal at this moment. She is compliant with lisinopril 20 mg and will start monitoring her blood pressure at home with goal blood pressure to be below 140/90 (2) Bipolar 1 disorder: Code(s): F31.9 - Bipolar disorder, unspecified Category: Medical Plan: Patient lost her mental health therapist as her mental health therapy group has goes down. She would like to be reestablished with a mental health therapist to continue cognitive behavioral therapy. She now has PCP managing her mental health medication including divalproex and clonazepam. (3) COPD (chronic obstructive pulmonary disease): Code(s): J44.9 - Chronic obstructive pulmonary disease, unspecified Category: Medical Qualifiers: COPD type: chronic bronchitis Chronic bronchitis type: simple Qualified Code(s): J41.0 - Simple chronic bronchitis Plan: Patient reports a bit of a wheeze specially at night while lying down since she has stopped smoking. She does have access to an albuterol inhaler to use on an as needed basis. (4) Anxiety: Code(s): F41.9 - Anxiety disorder, unspecified Category: Medical Plan: As above patient continues to suffer with anxiety. She does use clonazepam on a daily basis (5) Former smoker: Code(s): Z87.891 - Personal history of nicotine dependence Category: Social Hx Plan: Patient reports she has quit smoking over the last few days. She does admit to taking a drag of cigarette from time to time. She has had a lot of difficulty with cutting her smoking though feels very confident she can quit over the next few weeks. Orders: Orders Comprehensive [place]. Panel Fast Today I10 - Essential (primary) hypertension Microalbumin, Random (w Creat) Today I10 - Essential (primary) hypertension Complete Blood Count no Diff Today D50.9 - Iron deficiency anemia, unspecified IRON PROFILE Today D50.9 - Iron deficiency anemia, unspecified Referrals Counseling Referral F33.1 - Major depressive disorder, recurrent, moderate Medications: Refilled clonazepam 1 mg PO DAILY 30 tabs 3RF 30 days F41.1 - Generalized anxiety disorder Discontinued nitrofurantoin monohyd/m-cryst 100 mg (Macrobid) must administer with a meal/food Discontinued Reason: Doctor's Order 100 mg PO Q12H 5 days 10 caps 0RF N39.0 - Urinary tract infection, site not specified
[2024-05-09 11:32] VITALS: BP 165/80
== END 2024-05-09 11:40 | disposition home or self-care (01) ==
PROVIDERS: PCP Physician Assistant; Visit Provider Physician Assistant
DX: I10 Essential (primary) hypertension (principal); F31.9 Bipolar disorder, unspecified; J41.0 Simple chronic bronchitis; F41.9 Anxiety disorder, unspecified; Z87.891 Personal history of nicotine dependence

== ENCOUNTER → 2024-05-09 11:00 | Outpatient (BNVA) | payer OTHER, SELFPAY | PROVIDERS: PCP Physician Assistant; Visit Provider Physician Assistant | DX: I10 Essential (primary) hypertension (principal); F31.9 Bipolar disorder, unspecified; F41.0 Panic disorder [episodic paroxysmal anxiety]; F41.9 Anxiety disorder, unspecified; Z87.891 Personal history of nicotine dependence | CPT/HCPCS: 99212 ==

== ENCOUNTER 2024-06-05 09:01 | Outpatient (AMB) | payer OTHER, SELFPAY ==
--- NOTE | 2024-06-05 09:03 | MHC.OFFVIS ---
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 States she has swelling in both legs. Discoloration, burning sensation. Left leg swells more. States it has been about a year now. 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 She states she noticed the swelling started after she started taking Suboxone. Complaints include pain/discomfort, swelling of lower extremities, cramping, fatigue, and heaviness of the lower extremities. It has been affecting their daily activities including walking and standing. It is noted in bilateral legs. She states it does get better when she has been taking her Lasix. She states the swelling comes and goes, she can not determine when it is going to come or when it goes away. She currently smokes approximately 3-6 cigarettes a day, down from 1 pack a day. She states she has been smoking for approximately 30 + years. She is not a diabetic. Patient denies any previous venous surgery or injections. Patient denies any history of DVT/ PE. Patient denies any history of phlebitis. Trial of compression includes - elevation with some relief; it was difficult to put on and tolerate compression stockings They now present for vascular evaluation regarding their varicose veins. [facility] Medical History Opioid dependence Anxiety History of chronic back pain Hx of alopecia History of opioid abuse Depression Hyperlipidemia Right lumbar radiculopathy Bipolar 1 disorder Surgical History History of oral surgery Hx of tubal ligation History of carpal tunnel release of both wrists Family History Father No problems noted. Mother Heart disease Diabetes Brother Heart disease Brother Heart disease Sister Diabetes Social History Housing: House Are you a primary direct care provider to a significant other at home: No Alcohol intake: never Patient Tobacco Use Status: Former Tobacco user Tobacco use type: Cigarette Cigarettes Per Day: 0 (3 a month) Years Smoked: 40 +/- e-Cigarette/Vaping Use: Never Used Second Hand Smoke Exposure: No service: No Current occupational status: unemployed Cognitive needs: No Hearing needs: No Vision needs: No Review of Systems Const Reports as per HPI and Denies weakness ENT Reports Normal hearing present and Denies dizziness Card Reports as per HPI, Denies chest pain, Denies chest pain at rest, Denies chest pain with activity, Denies dyspnea and Denies dyspnea on exertion Resp Reports as per HPI, Denies cough, Denies dyspnea and Denies dyspnea on exertion GI Reports as per HPI, Denies abdominal pain, Denies nausea and Denies vomiting Musc Denies numbness Skin/Breast Reports as per HPI, Denies erythema and Denies wounds Neuro Reports Normal hearing present, Denies dizziness, Denies numbness, Denies Sensory deficit (Neuro) and Denies weakness Psych Reports no additional complaints Endo Reports no additional complaints Physical Exam Const General: healthy appearing and no acute distress Orientation/consciousness: patient oriented x3 HEENT Head: Yes normal to inspection Ears: hearing grossly normal bilaterally Mouth: Normal oral and palatal mucosa present Resp Effort & Inspection: normal respiratory effort and able to speak in complete sentences Auscultation: clear to auscultation bilaterally Cardio Jugular venous distension: no JVD Rate: regular rate Rhythm: regular rhythm Heart sounds: S1 normal heart sound present and S2 normal heart sound present Bruits: no abdominal aortic bruits, no carotid bruits, no femoral bruits and no renal bruits Peripheral pulses: Peripheral pulses 2+ throughout GI Inspection: Yes normal to inspection Palpation (GI): No Abdominal aortic bruit present Skin General skin exam: no rashes or lesions noted Wounds: no wounds Hair: normal Neuro General: patient oriented x3 Cranial nerves: Yes Normal hearing present Cognition (Neuro): normal cognition Gait exam (Neuro): Normal gait present Motor exam (neuro): 5/5 motor strength present throughout Sensory Exam: No Sensory deficit (Neuro) Extrem Other: Bilateral lower extremities:+1 peripheral edema noted. Palpable DP pulses. Discoloration noted from the tibial tuberosities down to her feet. 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 In short, the patient has evidence of venous insufficiency. I have discussed the pathophysiology with the patient. In addition I have provided informational material regarding venous disease to the patient. We have discussed conservative measures including compression, elevation, and exercise. We discussed the importance of wearing compression stockings, that they are unfortunately uncomfortable but we will help with the swelling. She does have her own pairs at home. I have taken the liberty of ordering venous insufficiency testing with the patient. They will follow up with me after testing. The patient had an opportunity to ask questions regarding the treatment plan. All questions were answered. Imaging studies, laboratory studies and physical exam results were discussed and reviewed in detail. No major barriers to understanding were identified. The patient expressed understanding and agreement with the above treatment plan. The patient is aware they should contact our office by phone for worsening of the current condition or the appearance of new symptoms. Thank you for allowing me to participate in the vascular care of this patient. If you have any questions or concerns regarding the treatment for the above condition please do not hesitate to contact me. The office telephone contact is [phone]. This note is constructed using voice recognition software. While every effort has been made to ensure accuracy, certified dental assistant errors may have been included. Thank you for allowing me to participate in the care of your patient. Yours sincerely, MADHU Aguiar Orders: Orders US venous duplex LE BI 1 Week I83.11 - Varicose veins of right lower extremity with inflammation, I83.12 - Varicose veins of left lower extremity with inflammation Coding Level of Care Code New Pt Level 4 (96381) Diagnoses Varicose veins of both lower extremities with inflammation I83.11; I83.12
== END 2024-06-05 09:23 | disposition home or self-care (01) ==
PROVIDERS: PCP Physician Assistant; Visit Provider Physician Assistant Surgical
DX: I83.11 Varicose veins of right lower extremity with inflammation (principal); I83.12 Varicose veins of left lower extremity with inflammation
CPT/HCPCS: 99204

== ENCOUNTER → 2024-06-05 09:01 | Outpatient (BNVA) | payer OTHER, SELFPAY | PROVIDERS: PCP Physician Assistant; Visit Provider Physician Assistant Surgical | DX: Z12.11 Encounter for screening for malignant neoplasm of colon (principal); K59.01 Slow transit constipation; K21.9 Gastro-esophageal reflux disease without esophagitis; I83.11 Varicose veins of right lower extremity with inflammation; I83.12 Varicose veins of left lower extremity with inflammation | CPT/HCPCS: 99202; 99212 ==

== ENCOUNTER 2024-06-05 09:36 | Outpatient (AMB) | payer OTHER, SELFPAY ==
[2024-06-05 09:38] VITALS: BP 148/82; PULSE 84; O2SAT 96; BMI 36.7
--- NOTE | 2024-06-05 09:38 | MHC.OFFVIS ---
Vital Signs 06/05/24 09:38 Height 5 ft 3 in Weight 207 lb 3.752 oz BMI 36.7 BP 148/82 H Blood Pressure Location Rt brachial Position Sitting Pulse 84 Pulse Source Pulse Oximeter Pulse Oximetry (%) 96 Oxygen Delivery Method Room Air Intake Visit Reasons: 3 month follow up Intake Note: ESTABLISHED PATIENT Reason; 3 mos FUV. Changes/concerns? Pt had vascular consult this AM. No significant concerns per pt. Allergies codeine [CODEINE] Allergy (Mild, Verified 06/05/24 09:38) RASH varenicline [From Chantix] Allergy (Unknown, Verified 06/05/24 09:38) headaches venlafaxine [From Effexor] Adverse Reaction (Mild, Verified 06/05/24 09:38) gi upset HPI HPI 3 month follow up: Details: LAST VISIT Colon cancer screening Constipation Plan Patient denies any cardiac or respiratory symptoms.? Patient admits to be constipated. Will send her script for Dulcolax. Patient was also encouraged to increase fluid intake and activity to promote better bowel motility. Patient is on Lasix due to bilateral lower extremity edema. Patient reports also pain in the bilateral lower extremities will send her referral to see vascular surgeon. Denies any issues with anesthesia in the past.? Denies any history of sleep apnea.? No history infectious diseases in the past or present.? Not on any anticoagulation therapy.? No family or personal history of colon cancer or polyps.? Patient denies melena, hematochezia, unintentional weight loss or ribbon like stools.? Discussed at length the pre-procedure,? prep, diet & medications as well as what to expect prior, during and after the procedure.?? Stressed the importance of good bowel prep.? Recommended the use of Vaseline or Calmoseptine OTC & baby wipes with bowel movements to promote comfort.? ?Patient verbalizes understanding and agrees to plan of care.? She was given the opportunity to ask questions and all questions answered.? We will see her after the procedure.? Orders Referrals Vascular Surgery Referral R60.0, R60.9 Medications New bisacodyl (Dulcolax (bisacodyl)) 10 mg (2 x 5 mg) PO BEDTIME 180 tabs 4RF polyethylene glycol 3350 (Miralax) As directed by gastroenterology department at [facility] 238 grams PO ONCE 238 grams 0RF Z12.11 TODAY'S VISIT Patient is here today for follow-up. Patient reports that she has been feeling better. Takes Dulcolax daily. Her bowels have been moving well without any issues. Patient denies melena, hematochezia, unintentional weight loss or ribbon like stools. Patient denies dyspepsia, dysphagia or odynophagia. Patient denies any issues with anesthesia. Not on any anticoagulation medication. No will history of sleep apnea. [facility] Medical History (Updated 06/05/24 @ 09:47 by Ceci Perea [facility]) GERD (gastroesophageal reflux disease) Opioid dependence Anxiety History of chronic back pain Hx of alopecia History of opioid abuse Depression Hyperlipidemia Right lumbar radiculopathy Bipolar 1 disorder Surgical History History of oral surgery Hx of tubal ligation History of carpal tunnel release of both wrists Family History Father No problems noted. Mother Heart disease Diabetes Brother Heart disease Brother Heart disease Sister Diabetes Social History Housing: House Are you a primary healthcare receptionist to a significant other at home: No Alcohol intake: never Patient Tobacco Use Status: Former Tobacco user Tobacco use type: Cigarette Cigarettes Per Day: 0 (3 a month) Years Smoked: 40 +/- e-Cigarette/Vaping Use: Never Used Second Hand Smoke Exposure: No service: No Current occupational status: unemployed Cognitive needs: No Hearing needs: No Vision needs: No Review of Systems Const Denies weight gain and Denies weight loss ENT Reports no additional complaints, Denies dysphagia and Denies odynophagia Card Reports no additional complaints Resp Reports no additional complaints GI Denies abdominal pain, Denies belching, Denies melena, Denies bloating, Denies change in bowel habits, Denies dysphagia, Denies excessive flatus, Denies dyspepsia, Denies heartburn, Denies diarrhea, Denies loose stools, Denies nausea, Denies odynophagia and Denies vomiting Musc Reports no additional complaints Neuro Reports no additional complaints Psych Reports no additional complaints Endo Reports no additional complaints Physical Exam Vital Signs: BMI result Body Mass Index 35.1 Const General: healthy appearing and no acute distress Nutritional Appearance: obese Orientation/consciousness: patient oriented x3 Resp Effort & Inspection: normal respiratory effort, able to speak in complete sentences, no tracheal deviation and symmetric chest movement Auscultation: clear to auscultation bilaterally Cardio Rate: regular rate GI Inspection: Yes normal to inspection and No distended Palpation (GI): Soft to palpation, not firm, nontender and No hepatosplenomegaly present Auscultation: normal bowel sounds General: Yes no CVA tenderness Back/Spine/Pelvis Back: no CVA tenderness Skin General skin exam: elasticity normal, turgor normal and dry skin Neuro General: patient oriented x3 Extrem General: Yes edema (BLE) Psych Appearance: grossly normal Mental Status: mental status grossly normal Assessment & Plan Assessment & Plan (1) Colon cancer screening: Code(s): Z12.11 - Encounter for screening for malignant neoplasm of colon Category: Medical (2) Constipation: Code(s): K59.00 - Constipation, unspecified Qualifiers: Constipation type: slow transit constipation Qualified Code(s): K59.01 - Slow transit constipation (3) GERD (gastroesophageal reflux disease): Code(s): K21.9 - Gastro-esophageal reflux disease without esophagitis Category: Medical Qualifiers: Esophagitis presence: esophagitis presence not specified Qualified Code(s): K21.9 - Gastro-esophageal reflux disease without esophagitis Plan Patient has a colonoscopy scheduled for next month. Appointment in the office his at end of June. What to expect before during and after procedure discussed with patient. Stressed the importance of good bowel prep day before procedure. Patient was encouraged to take Dulcolax tablets daily to ensure good bowel movements and good prep. No issues with anesthesia in the past. No history of sleep apnea. Not on any anticoagulation medication. Patient denies any cardiac or respiratory symptoms. I will see patient after the procedure, sooner on as needed basis. She is agreeable to plan of care and verbalizes understanding of instructions. She was given the opportunity to ask questions and all questions answered. Medications: New polyethylene glycol 3350 (Miralax) As directed by gastroenterology department at [facility] 238 grams PO ONCE 238 grams 0RF Z12.11 - Encounter for screening for malignant neoplasm of colon Coding Level of Care Code Est Pt Level 3 (76807) Diagnoses Colon cancer screening Z12.11 Slow transit constipation K59.01 Constipation type: slow transit constipation Gastroesophageal reflux disease, unspecified whether esophagitis present K21.9 Esophagitis presence: esophagitis presence not specified Time Spent (min) 30 Comment 20 spent with patient and additional 10 minutes spent reviewing her records
== END 2024-06-05 15:01 | disposition home or self-care (01) ==
PROVIDERS: PCP Physician Assistant; Visit Provider Nurse Practitioner Family
DX: K59.01 Slow transit constipation (principal); K21.9 Gastro-esophageal reflux disease without esophagitis; Z12.11 Encounter for screening for malignant neoplasm of colon
CPT/HCPCS: 99213

== ENCOUNTER 2024-06-13 08:57 | Emergency (ER) | payer OTHER, SELFPAY ==
[2024-06-13 09:19] VITALS: BP 157/73; PULSE 86; RESP 16; TEMP 36.7; O2SAT 94; BMI 35.7
--- NOTE | 2024-06-13 11:28 | ED_ITS ---
HPI - General Adult General Chief complaint: Ear Problems Stated complaint: Ear Infection Time Seen by Provider: 06/13/24 11:27 Source: patient, RN notes reviewed and old records reviewed Mode of arrival: ambulatory Limitations: no limitations History of Present Illness ED Provider: Rodney HPI narrative: Patient is a 63-year-old female presenting to the ED with complaint of left ear pain, congestion, and sore throat since Tuesday. States that she doesn't really feel sick, and primary complaint is left ear pain, decreased hearing. Denies fevers. Tried putting peroxide in her ear without change. MD complaint: left ear pain Onset (ago): day(s) Related Data Home Medications ?Medication ?Instructions ?Recorded ?Confirmed magnesium oxide 500 mg PO DAILY 03/09/24 05/09/24 Previous Rx's ?Medication ?Instructions ?Recorded naloxone 4 mg/actuation nasal 4 mg intranasal Q2M PRN opioid 08/25/22 spray (Narcan) overdose #2 ea ferrous sulfate 325 mg (65 mg 325 mg PO DAILY 30 days #30 tabs 01/31/23 iron) tablet cetirizine 10 mg tablet 10 mg PO DAILY #30 tabs 09/06/23 fluticasone propionate 50 1 spray intranasal DAILY #16 grams 09/06/23 mcg/actuation nasal spray,suspension (Allergy Relief (fluticasone)) miscellaneous medical supply #1 ea 10/12/23 (Blood Pressure Cuff) nicotine (polacrilex) 2 mg buccal 2 mg buccal Q4H PRN nicotine 10/12/23 lozenge cravings #72 ea atorvastatin 10 mg tablet 10 mg PO DAILY 90 days #90 tabs 12/22/23 divalproex 250 mg tablet,extended 250 mg PO DAILY 90 days #90 tabs 01/11/24 release 24 hr omeprazole 20 mg capsule,delayed 20 mg PO DAILY 90 days #90 caps 01/19/24 release carisoprodol 350 mg tablet (Soma) 350 mg PO BEDTIME PRN muscle pain 01/26/24 4 days #4 tabs bisacodyl 5 mg tablet,delayed 10 mg (2 x 5 mg) PO BEDTIME #180 03/09/24 release (Dulcolax (bisacodyl)) tabs polyethylene glycol 3350 17 238 g PO ONCE #238 grams 03/09/24 gram/dose oral powder (Miralax) furosemide 40 mg tablet (Lasix) 40 mg PO DAILY edema 30 days #30 03/23/24 tabs lisinopril 20 mg tablet 20 mg PO DAILY #90 tabs 04/18/24 buprenorphine 4 mg-naloxone 1 mg 1 film buccal Q24H #60 ea 04/23/24 sublingual film buprenorphine 8 mg-naloxone 2 mg 1 film buccal DAILY #60 ea 04/23/24 sublingual film albuterol sulfate 90 mcg/actuation 1 inh inhalation QID PRN shortness 04/27/24 aerosol inhaler of breath or wheezing 30 days #8.5 grams clonazepam 1 mg tablet 1 mg PO DAILY 30 days #30 tabs 05/09/24 ibuprofen 800 mg tablet 800 mg PO TID PRN for pain #90 tabs 05/31/24 polyethylene glycol 3350 17 238 g PO ONCE #238 grams 06/05/24 gram/dose oral powder (Miralax) Allergies Allergy/AdvReac Type Severity Reaction Status Date / Time codeine [CODEINE] Allergy Mild RASH Verified 06/13/24 09:20 varenicline [From Chantix] Allergy Unknown headaches Verified 06/13/24 09:20 venlafaxine [From Effexor] AdvReac Mild gi upset Verified 06/13/24 09:20 Review of Systems Review of Systems: As per HPI Yes all other systems are reviewed and are negative Constitutional: Constitutional: Reports as per HPI PMFSH Past Medical History Medical History (Updated 06/13/24 @ 12:17 by Carolyn Stevens NP) GERD (gastroesophageal reflux disease) Opioid dependence Anxiety History of chronic back pain Hx of alopecia History of opioid abuse Depression Hyperlipidemia Right lumbar radiculopathy Bipolar 1 disorder Surgical History History of oral surgery Hx of tubal ligation History of carpal tunnel release of both wrists Family History Family History Father No problems noted. Mother Heart disease Diabetes Brother Heart disease Brother Heart disease Sister Diabetes Social History Social History Housing: House Are you a primary palliative care nurse practitioner to a significant other at home: No Alcohol intake: never Patient Tobacco Use Status: Former Tobacco user Tobacco use type: Cigarette Cigarettes Per Day: 0 (3 a month) Years Smoked: 40 +/- e-Cigarette/Vaping Use: Never Used Second Hand Smoke Exposure: No Advance Directives: No Advance Directives Information Provided: Yes Do you have a plan to hurt others: No Plan service: No Current occupational status: unemployed Cognitive needs: No Hearing needs: No Vision needs: No Physical Exam ED Vital Signs: Vital Signs - 24 hr 06/13/24 09:19 06/13/24 12:57 Temperature 98.0 F 98.0 F Pulse Rate 86 86 Respiratory Rate 16 16 Blood Pressure 157/73 H 157/73 H Pulse Oximetry 94 94 Oxygen Delivery Method Room Air Room Air BMI result Body Mass Index 35.7 Vital signs have been reviewed and appear to be correct. Blood pressure normal. Heart rate normal. Respiratory rate normal. Temperature normal. Oxygen saturation normal. Const General: cooperative, healthy appearing and no acute distress Orientation/consciousness: oriented to person, oriented to place, oriented to time and patient oriented x3 Limitations: no limitations HENMT Head: Yes normocephalic and Yes atraumatic Ears: external ears normal, mastoids normal bilaterally, no periauricular adenopathy and Abnormal EAC present cerumen impaction on the left General nose exam: Normal external nose present Face and sinus: Yes face symmetric Mouth: Normal oral and palatal mucosa present, lip normal, tongue normal, oropharynx normal and moist mucous membranes Throat: Yes posterior oropharynx normal, Yes tonsils normal and Yes uvula midline Eyes Pupils: Equal, round and reactive pupils present Neck Neck: Yes normal visual inspection, Yes no lymphadenopathy and Yes supple Resp Effort & Inspection: normal respiratory effort and able to speak in complete sentences Auscultation: clear to auscultation bilaterally Cardio Rate: regular rate Rhythm: regular rhythm Heart sounds: S1 normal heart sound present and S2 normal heart sound present GI Palpation (GI): Soft to palpation and nontender Auscultation: normoactive bowel sounds General: Yes no CVA tenderness Back/Spine/Pelvis Back: no CVA tenderness Skin General skin exam: elasticity normal and turgor normal Neuro General: oriented to person, oriented to place, oriented to time, patient oriented x3, moves all extremities, no focal motor deficits and CN's II-XI intact bilaterally Cranial nerves: Yes Equal, round and reactive pupils present Cognition (Neuro): normal cognition Extrem General: Yes full ROM, Yes no pedal edema and Yes no calf tenderness Psych Mental Status: mental status grossly normal Affect: normal affect Thought process: Normal thought process present Medical Decision Making Medical Decision Making [facility] Narrative: Patient is a 63-year-old female presenting to the ED with complaint of left ear pain, congestion, and sore throat since Tuesday. On exam patient is awake, A+Ox3, VS WNL, afebrile, normal neurological exam without focal deficits, p hysical exam findings as above. Given reported symptoms and physical exam findings, initial differential includes but is not limited to otitis media, otitis externa, cerumen impaction, viral illness, strep pharyngitis. Physical exam notable for cerumen impaction of left EAC. Ear irrigated with good removal of cerumen. TM normal. Discussed with patient that she can use seid-uby-elzenqf Debrox drops to prevent this from occurring in the future. Strep and viral swabs negative. Instructed patient to follow-up with PCP as needed. Return precautions discussed. Patient verbalized understanding of and agreement with plan. Differential Diagnosis Differential Diagnoses: The differential diagnosis associated with the presentation includes As per [facility] Lab Data [facility] Lab Attestation statement: I reviewed the patient's lab results. As per [facility] Labs: Lab Results 06/13/24 06/13/24 Range/Units 11:03 11:49 Influenza Type A (PCR) NEGATIVE (Negative) Influenza Type B (PCR) NEGATIVE (Negative) RSV RNA Qual (PCR) NEGATIVE (Negative) SARS-CoV-2 RNA (RT-PCR) NEGATIVE (Negative) S. pyogenes GrpA ALEX Negative (Negative) External Record Review External record reviewed: Inpatient record, Office record and Outpatient record Discharge Plan Discharge Clinical Impression: Cerumen impaction Patient Disposition: Home, Self-Care Instructions: Carbamide Peroxide (Into the ear) Additional Instructions: You were evaluated in the emergency department today for left ear pain. Your evaluation showed a large amount of cerumen (ear wax) in your left ear. Much of this was removed and it does not appear that you have an ear infection. We recommend that you use jqcm-xdq-vnarxje Debrox eardrops to prevent this in the future. You tested negative for flu, covid, RSV and strep. Follow-up with your primary care provider as needed. Return to the emergency department if you develop worsening pain, abnormal discharge or drainage from ear, fevers or any other concerning symptoms. Prescriptions: No Action ferrous sulfate 325 mg (65 mg iron) tablet 325 mg PO DAILY 30 Days Qty: 30 2RF atorvastatin 10 mg tablet 10 mg PO DAILY 90 Days Qty: 90 2RF omeprazole 20 mg capsule,delayed release(DR/EC) 20 mg PO DAILY 90 Days Qty: 90 3RF carisoprodol [Soma] 350 mg tablet 350 mg PO BEDTIME PRN (Reason: muscle pain) 4 Days Qty: 4 0RF furosemide [Lasix] 40 mg tablet 40 mg PO DAILY 30 Days Qty: 30 1RF lisinopril 20 mg tablet 20 mg PO DAILY Qty: 90 1RF buprenorphine-naloxone 4-1 mg film 1 film buccal Q24H Qty: 60 0RF buprenorphine-naloxone 8-2 mg film 1 film buccal DAILY Qty: 60 0RF albuterol sulfate 90 mcg/actuation HFA aerosol inhaler 1 inh inhalation QID PRN (Reason: shortness of breath or wheezing) 30 Days Qty: 8.5 1RF ibuprofen 800 mg tablet 800 mg PO TID PRN (Reason: for pain) Qty: 90 2RF divalproex 250 mg tablet extended release 24 hr 250 mg PO DAILY 90 Days Qty: 90 2RF cetirizine 10 mg tablet 10 mg PO DAILY Qty: 30 0RF fluticasone propionate [Allergy Relief (fluticasone)] 50 mcg/actuation spray,suspension 1 spray intranasal DAILY Qty: 16 0RF Rx Instructions: administer into each nostril magnesium oxide 500 mg magnesium tablet 500 mg PO DAILY bisacodyl [Dulcolax (bisacodyl)] 5 mg tablet,delayed release (DR/EC) 10 mg PO BEDTIME Qty: 180 4RF polyethylene glycol 3350 [Miralax] 17 gram/dose powder 238 g PO ONCE Qty: 238 0RF Rx Instructions: As directed by gastroenterology department at [facility] polyethylene glycol 3350 [Miralax] 17 gram/dose powder 238 g PO ONCE Qty: 238 0RF Rx Instructions: As directed by gastroenterology department at [facility] naloxone [Narcan] 4 mg/actuation spray,non-aerosol 4 mg intranasal Q2M PRN (Reason: opioid overdose) Qty: 2 0RF Rx Instructions: spray 1 dose into ONE nostril; alternate nostrils w each dose until help arrives (DME) Blood Pressure Cuff Misc See Rx Instructions .ROUTE .MEDSUPPLY Qty: 1 0RF Rx Instructions: test once per day / PRN nicotine (polacrilex) 2 mg lozenge 2 mg buccal Q4H PRN (Reason: nicotine cravings) Qty: 72 0RF clonazepam 1 mg tablet 1 mg PO DAILY 30 Days Qty: 30 3RF Interventions: ED Discharge Assessment Last Done: 06/13/24 12:57 Discharge Date/Time: 06/13/24 12:57 Print Language: Kyrgyz
[2024-06-13 12:14] LABS: IDNOW Serial# 58CA691E; Strep A Nucleic Acid Negative (Negative)
[2024-06-13 12:27] LABS: Influenza A PCR NEGATIVE (Negative); Influenza B PCR NEGATIVE (Negative); Resp Syncy Virus RNA Qual PCR NEGATIVE (Negative); SARS COV2 PCR INHOUSE NEGATIVE (Negative)
--- OUTSIDE RECORDS SUMMARY | 2024-06-13 12:47 | XMS_ITS | Clinical Summary ---
Author Organization [employer] Address [address] [place] [address] Care Team Providers Care Tree Killer Name Role Phone Unavailable Primary Care Provider Unavailabl e Allergies Active Allergy Reactions Criticality Noted Date Comments Codeine 08/11/2023 Medications atorvastatin (Lipitor) 10 MG tablet Take 10 mg by mouth in the morning. 4 Active clonazePAM (KlonoPIN) 1 MG tablet Take 1 mg by mouth in the morning. 4 Active Buprenorphine HCl-Naloxone HCl (Suboxone) 8-2 MG SL film DISSOLVE 1 FILM UNDER THE TONGUE EVERY DAY 4 Active buprenorphine-n aloxone (Suboxone) 4-1 MG per sublingual film PLACE 1 FILM BUCCALLY EVERY 24 HOURS. 4 Active albuterol 108 (90 Base) MCG/ACT inhaler INHALE 1 PUFF BY MOUTH FOUR TIMES DAILY NEEDED FOR SHORTNESS OF BREATH OR WHEEZING 4 Active divalproex (Depakote ER) 250 MG 24 hr tablet Take 250 mg by mouth in the morning. 4 Active furosemide (Lasix) 40 MG tablet TAKE 1 TABLET BY MOUTH DAILY FOR SWELLING 3 Active ibuprofen 800 MG tablet Take 800 mg by mouth if needed in the morning, at noon, and at bedtime. 4 Active lisinopril 20 MG tablet Take 20 mg by mouth in the morning. 4 Active omeprazole (PriLOSEC) [address] capsule Take 20 mg by mouth in the morning. 4 Active Social History Tobacco Use Types Packs/Day Years Used Date Smoking Tobacco: Some Days Cigarettes Smokeless Tobacco: Never Tobacco Cessation:Ready to Q uit: Not Asked; Counseling Given: Not Answered Alcohol Use Standard Drinks/Week Comments Never 0 (1 standard drink = 0.6 oz pur e alcohol) Comments Unknown Sex and Gender Information Value Date Recorded Sex Assigned at Female 08/09/2023 2:43 PM EDT Legal Sex Female 2:17 PM EDT Gender Identity Female 08/09/2023 2:43 PM EDT Sexual Orientation Straight 08/09/2023 2: 43 PM EDT Plan of Treatment Health Maintenance Due Date Last Done Comments CT Colonography 1961 Colonoscopy 1961 Colorectal Cancer Screening 1961 Dental Oral Exam 1961 Dental Prophylaxis 1961 Dental X-Ray: Bitewings 1961 Dental X-Ray: Full Mouth 1961 Depression Screening 1961 FIT DNA/Cologuard 1961 FIT 1961 FOBT 1961 HIV Screening 1961 Lipid Panel 1961 SDOH Screening 1961 Sigmoidoscopy 1961 Alcohol/Substance Use Screening 1973 Hepatitis C Screening 12/16/1979 Pap Smear 1982 Cervical Cancer Screening 12/16/1991 HPV/Cotest 12/16/1991 Mammogram 2001 Zoster Vaccines (1 of 2) 12/16/2011 Pneumococcal Vaccine: Pediatrics (0 to 5 Years) and At-Risk Patients (6 to 64 Years) (2 of 2 - PCV) 03/05/2022 03/05/2021 COVID-19 Vaccine (4 - 2023-2 5 season) 2024 03/31/2022, 10/08/2021, 08/20/2020 Influenza Vaccine (#1) 2024 Tobacco Screening 08/10/2024 08/11/2023 DTaP/Tdap/Td Vaccines (2 - T d or Tdap) 08/25/2032 08/25/2022 RSV Patients and Patients Aged 60 years or older (1 - 1-dose 75+ series) 2036 HIB Vaccines Aged Out No longer eligi ble based on patient's age to complete this topic HPV Vaccines Aged Out No longer eligi ble based on patient's age to complete this topic Hepatitis A Vaccines Aged Out No long er eligible based on patient's age to complete this topic Hepatitis B Vaccines Aged Out No long er eligible based on patient's age to complete this topic IPV Vaccines Aged Out No longer eligi ble based on patient's age to complete this topic Meningococcal Vaccine Aged Out No bayron malissa eligible based on patient's age to complete this topic RSV under 20 months Aged Out No longe r eligible based on patient's age to complete this topic Rotavirus Vaccines Aged Out No longer eligible based on patient's age to complete this topic Insurance [facility] MEDICAID [facility]
[2024-06-13 12:57] VITALS: BP 157/73; PULSE 86; RESP 16; TEMP 36.7; O2SAT 94
== END 2024-06-13 12:57 | disposition home or self-care (01) ==
PROVIDERS: Registered Nurse Emergency; Emergency Provider Emergency Medicine; PCP Physician Assistant
DX: H92.02 Otalgia, left ear (principal); H61.22 Impacted cerumen, left ear; R09.81 Nasal congestion; J02.9 Acute pharyngitis, unspecified; E78.5 Hyperlipidemia, unspecified; J44.9 Chronic obstructive pulmonary disease, unspecified; F17.210 Nicotine dependence, cigarettes, uncomplicated; Z03.818 Encounter for observation for suspected exposure to other biological agents ruled out; Z79.899 Other long term (current) drug therapy
CPT/HCPCS: 0241U; 69209; 87651; 99282; 99283

== ENCOUNTER 2024-06-15 08:45 | Outpatient (AMB) | payer OTHER, SELFPAY ==
--- NOTE | 2024-06-15 08:46 | MHC.AM.SUB ---
Intake Visit Reasons: MAT Tele Allergies codeine [CODEINE] Allergy (Mild, Verified 06/13/24 09:20) RASH varenicline [From Chantix] Allergy (Unknown, Verified 06/13/24 09:20) headaches venlafaxine [From Effexor] Adverse Reaction (Mild, Verified 06/13/24 09:20) gi upset HPI HPI MAT Tele: Details: Patient presents for follow up via telehealth Currently prescribed Suboxone 12mg daily (8mg+4mg) No issues related to medication Reports she is not feeling well--upper respiratory sx Will start abx today Review of Systems Const Reports as per HPI ENT Reports nasal congestion and Reports sore throat Telehealth Telehealth Telehealth Platform: Telephone Location of provider rendering services: practice address Location of patient: address on file Patient Identification confirmed using: Name, : Yes Telehealth method: voice only Patient verbally consented to treatment: Yes Patient verbally consented to billing insurance company: Yes Minutes spent on Phone/Video with Pt.: 15 PFS Medical History (Updated 06/14/24 @ 13:10 by Narayan Clifton PA-C) GERD (gastroesophageal reflux disease) Opioid dependence Anxiety History of chronic back pain Hx of alopecia History of opioid abuse Depression Hyperlipidemia Right lumbar radiculopathy Bipolar 1 disorder Surgical History History of oral surgery Hx of tubal ligation History of carpal tunnel release of both wrists Family History Father No problems noted. Mother Heart disease Diabetes Brother Heart disease Brother Heart disease Sister Diabetes Social History Housing: House Are you a primary customer care consultant to a significant other at home: No Alcohol intake: never Patient Tobacco Use Status: Former Tobacco user Tobacco use type: Cigarette Cigarettes Per Day: 0 (3 a month) Years Smoked: 40 +/- e-Cigarette/Vaping Use: Never Used Second Hand Smoke Exposure: No service: No Current occupational status: unemployed Cognitive needs: No Hearing needs: No Vision needs: No Assessment & Plan Assessment & Plan (1) Opioid dependence: Code(s): F11.20 - Opioid dependence, uncomplicated Category: Medical Qualifiers: Substance use status: uncomplicated Qualified Code(s): F11.20 - Opioid dependence, uncomplicated Plan: continue suboxone at current dose follow up 2 months--refill due next week
== END 2024-06-15 08:57 | disposition home or self-care (01) ==
PROVIDERS: PCP Physician Assistant; Visit Provider Nurse Practitioner Psychiatric/Mental Health
DX: F11.20 Opioid dependence, uncomplicated (principal)
CPT/HCPCS: 98016

== ENCOUNTER → 2024-06-15 08:45 | Outpatient (BNVA) | payer OTHER, SELFPAY | PROVIDERS: PCP Physician Assistant; Visit Provider Nurse Practitioner Psychiatric/Mental Health | DX: Z51.81 Encounter for therapeutic drug level monitoring (principal); F11.20 Opioid dependence, uncomplicated; I10 Essential (primary) hypertension ==

== ENCOUNTER 2024-08-06 08:00 | Outpatient (REF) | payer OTHER, SELFPAY ==
--- NOTE | ~2024-08-06 | XR_ITS ---
EXAMINATION: XR CHEST 2 VIEWS HISTORY: J41.0 - Simple chronic bronchitis COMPARISON: There are no prior studies for comparison. FINDINGS: PA and lateral views of the chest are submitted. The lungs are expanded and clear. There is biapical pleural thickening. There is no pleural effusion, pneumothorax, or pulmonary vascular congestion. The heart is normal in size. The aorta is calcified. There is degenerative disc disease of the spine. XR/XR chest 2V IMPRESSION: No acute cardiopulmonary abnormality. Electronically signed by: Grady Jarrell MD 08/06/2024 11:16 AM EDT
--- OUTSIDE RECORDS SUMMARY | 2024-08-06 08:05 | XMS_ITS | Clinical Summary ---
Author Organization [employer] Address [address] [place] [address] Care Team Providers Care Etl Software Engineer Name Role Phone Unavailable Primary Care Provider [...] Vaccines (1 of 2) 12/16/2011 Pneumococcal Vaccine: 50+ Years (2 of 2 - PCV) 03/05/2022 03/05/2021 [...] patient's age to complete this topic Insurance [facility] MEDICAID [facility] ADULT
== END 2024-08-06 08:01 | disposition home or self-care (01) ==
LOC: HO.XRAY 08:00
PROVIDERS: PCP Physician Assistant; Visit Provider Physician Assistant
DX: J41.0 Simple chronic bronchitis (principal)
CPT/HCPCS: 71046

== ENCOUNTER → 2024-08-06 08:02 | Outpatient (BNV) | payer OTHER, SELFPAY | PROVIDERS: PCP Physician Assistant; Visit Provider Radiology Diagnostic Radiology | DX: J41.0 Simple chronic bronchitis (principal) | CPT/HCPCS: 71046 ==

== ENCOUNTER 2024-08-07 09:01 | Outpatient (REF) | payer OTHER, SELFPAY ==
[2024-08-07 09:34] LABS: Hematocrit 37.6 % (37.0-47.0); Hemoglobin 12.1 g/dl (12.0-16.0); Mean Corpuscular HGB Conc 32.2 g/dl (31.0-35.0); Mean Corpuscular Hemoglobin 28.7 pg (27.0-33.0); Mean Corpuscular Volume 89.3 fL (80.0-98.0); Mean Platelet Volume 10.2 fL (9.4-12.3); Platelet Count 476 X10*3/uL (160-400); Red Blood Count 4.21 X10*6/uL (4.20-5.50); Red Cell Distribution Width 13.7 % (11.0-16.0); White Blood Count 8.3 X10*3/uL (4.8-10.8)
[2024-08-07 10:10] LABS: Albumin Level 4.5 g/dL (3.5-5.0); Alkaline Phosphatase 103 U/L (39-117); Anion Gap 17 (12-20); Aspartate Amino Transferase 33 U/L (5-31); Bilirubin Total 0.4 mg/dL (0.0-1.0); Blood Urea Nitrogen 38 mg/dL (9-16); Calcium 8.6 mg/dL (8.4-10.2); Carbon Dioxide 23 mmol/L (22-29); Chloride 105 mmol/L (96-108); Estimated Glomerular Filt Rate 22; Glucose Fasting 114 mg/dL (60-99); Iron 82 mcg/dL (30-160); Percent Iron Saturation 27 % (15-50); Potassium 4.6 mmol/L (3.3-5.1); Sodium 140 mmol/L (135-145); Total Iron Binding Capacity 309 mcg/dL (228-428); Total Protein 8.9 g/dL (6.5-8.0); Unsaturated Iron Binding 227 ug/dL
[2024-08-07 10:25] LABS: Alanine Aminotransferase 40 U/L (0-31)
[2024-08-07 11:28] LABS: Appearance Urine Clear; Color Urine Yellow; Glucose Urine UA Negative (Negative); Leukocyte Esterase Urine Negative (Negative); Nitrite Urine Negative (Negative); PH 5.5 (5.0-9.0); UMIC TRIGGER UACC YES; Urine Blood Negative (Negative); Urine Ketones Trace mg/dL (Negative); Urine Protein 30 (1+) mg/dL (Neg-Trace)
[2024-08-07 11:31] LABS: Bacteria Urine Trace (None Seen); RBC Urine 0-2 /HPF (0-2); WBC Urine 0-5 /HPF (0-5)
[2024-08-07 12:01] LABS: Creatinine Urine 210.95 mg/dL; Microalbum/Creatinine Ratio Ur 11.8 ug/mg cr (<30)
== END 2024-08-07 09:02 | disposition home or self-care (01) ==
LOC: HO.LAB 09:01
PROVIDERS: PCP Physician Assistant; Visit Provider Physician Assistant
DX: I10 Essential (primary) hypertension (principal); D50.9 Iron deficiency anemia, unspecified; J41.0 Simple chronic bronchitis; F41.9 Anxiety disorder, unspecified; N17.9 Acute kidney failure, unspecified; F33.1 Major depressive disorder, recurrent, moderate; F17.200 Nicotine dependence, unspecified, uncomplicated; Z71.6 Tobacco abuse counseling
CPT/HCPCS: 36415; 80053; 81001; 82043; 82570; 83540; 85027; 96127; 99212

== ENCOUNTER 2024-08-07 09:32 | Outpatient (AMB) | payer OTHER, SELFPAY ==
--- NOTE | 2024-08-07 09:45 | MHC.PC.OV ---
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 Accompanied by: Self / Same As Patient Allergies codeine [CODEINE] Allergy (Mild, Verified 08/07/24 10:46) RASH varenicline [From Chantix] Allergy (Unknown, Verified 08/07/24 10:46) headaches venlafaxine [From Effexor] Adverse Reaction (Mild, Verified 08/07/24 10:46) gi upset Medication List - Last Reconciled 08/07/24 by Narayan Clifton PA-C albuterol sulfate 90 mcg/actuation 1 inh inhalation QID PRN 30 days atorvastatin 10 mg PO DAILY 90 days bisacodyl (Dulcolax (bisacodyl)) 10 mg (2 x 5 mg) PO BEDTIME buprenorphine-naloxone 4-1 mg 1 film buccal Q24H buprenorphine-naloxone 8-2 mg 1 film buccal DAILY carisoprodol (Soma) 350 mg PO BEDTIME PRN 4 days cetirizine 10 mg PO DAILY clonazepam 1 mg PO DAILY 30 days divalproex ER 250 mg PO DAILY 90 days ferrous sulfate 325 mg PO DAILY 30 days fluticasone propionate 50 mcg/actuation (Allergy Relief (fluticasone)) 1 spray intranasal DAILY furosemide (Lasix) 40 mg PO DAILY 30 days ibuprofen 800 mg PO TID PRN lisinopril 20 mg PO DAILY magnesium oxide 500 mg PO DAILY miscellaneous medical supply (Blood Pressure Cuff) test once per day / PRN naloxone 4 mg/actuation (Narcan) 4 mg intranasal Q2M PRN nicotine (polacrilex) 2 mg buccal Q4H PRN omeprazole 20 mg PO DAILY 90 days polyethylene glycol 3350 (Miralax) 238 grams PO ONCE Tobacco use date assessed: 08/07/24 Dental Screening Dental Screen Date: 08/07/24 Did you have a dental visit in the last 12 months?: No Did you have a dental problem in the last 6 months where you did not have access to dental care?: No Was dental information given to patient?: Patient has dentist HPI f/u HTN/ HLD HPI Details patient is a 63-year-old female here today for follow-up visit.. ?Patient has a past medical history significant for hyperlipidemia, generalized anxiety disorder, major depression, Bipolar disorder. Concern--> patient recently had an upper respiratory infection that is turned into a sinus infection, she was treated with antibiotics and now is feeling much better.. reviewed recent labs and noted a acute kidney injury with bump in creatinine up to 2.2 and elevated BUN. She reports recently taking a furosemide 40 mg in hopes to reduce her chest congestion. .. Hypertension: Blood pressure on the low side today. Patient has lost significant amount of weight since last office visit. She recently quit smoking and feels like she could having nicotine withdrawal and she has a bit anxious today in office. .. Tobacco dependency: She reports she is still smoking a few cigarettes per day, has struggled to completely quit smoking Opiate dependency: Continues to follow the [facility] and continues on Suboxone. Has been sober from street opiates for quite awhile now. .. Anxiety : She reports anxiety has been fairly well controlled with current doses of her mental health medication. . Lower extremity edema: Has completely resolved since changing her diet, rarely has to use Lasix. ..HLD:? Patient is compliant with statin therapy, will get repeat lipid panel to ensure appropriate LDL. ? .. ? MDD: ? She reports she is feeling better since she has been talking to a mental health therapist ( dorian)? through [facility]? Has not been set up with a psychiatrist yet. She continues on divalproex and clonazepam which have been helpful Laboratory Tests 05/01/20 03/16/21 03/16/21 15:15 07:41 07:42 RBC 5.18 Hgb 15.1 Creatinine 0.93 Random Glucose 121 H Fasting Glucose Calcium 8.3 L D 10.7 H D AST LDL Cholesterol, C alc 08/25/22 01/28/23 04/19/23 09:25 09:12 09:19 RBC 4.32 3.99 L Hgb 11.6 L Creatinine Random Glucose Fasting Glucose 109 H Calcium AST LDL Cholesterol, C alc 165 H 08/09/23 01/19/24 08/07/24 11:55 09:20 09:15 RBC 3.97 L 4.21 Hgb 11.5 L Creatinine 1.14 1.18 2.27 H Random Glucose 116 H Fasting Glucose 129 H 114 H Calcium AST 33 H LDL Cholesterol, C alc 137 H PFSH Medical History GERD (gastroesophageal reflux disease) Opioid dependence Anxiety History of chronic back pain Hx of alopecia History of opioid abuse Depression Hyperlipidemia Right lumbar radiculopathy Bipolar 1 disorder Surgical History History of oral surgery Hx of tubal ligation History of carpal tunnel release of both wrists Family History Father No problems noted. Mother Heart disease Diabetes Brother Heart disease Brother Heart disease Sister Diabetes Social History Housing: House Are you a primary healthcare customer service to a significant other at home: No Alcohol intake: never Patient Tobacco Use Status: Former Tobacco user Tobacco use type: Cigarette Cigarettes Per Day: 0 (3 a month) Years Smoked: 40 +/- e-Cigarette/Vaping Use: Never Used Second Hand Smoke Exposure: No service: No Current occupational status: unemployed Cognitive needs: No Hearing needs: No Vision needs: No Questionnaire PHQ-9 Over the last 2 weeks, how often have you been bothered by any of the following problems? 1. Little interest or pleasure in doing things: not at all 2. Feeling down, depressed, or hopeless: not at all 3. Trouble falling or staying asleep, or sleeping too much: not at all 4. Feeling tired or having little energy: not at all 5. Poor appetite or overeating: not at all 6. Feeling bad about yourself - or that you are a failure or have let yourself or your family down: not at all 7. Trouble concentrating on things, such as reading the newspaper or watching television: not at all 8. Moving or speaking so slowly that other people could have noticed. Or the opposite - being so fidgety or restless that you have been moving around a lot more than usual: not at all 9. Thoughts that you would be better off or of hurting yourself in some way: not at all Total score: 0 Depression Screening Interpretation: Negative Depression Screening Done: Yes 38554 - PHQ-9 Billing: Yes Source: Developed by Drs. Grady Gutierrez, Stella Gayle, Kurtis Myles and colleagues, with an educational jamal from [employer]. Thrive Questionnaire Date Thrive assessed: 08/07/24 I am a: Patient What is your living situation today?: I have a steady place to live Within the past 12 months, did the food you bought not last and you didn't have the money to get more?: Never true Within the past 12 months, did you worry whether your food would run out before you got money to buy more?: Never true Do you have trouble paying for medicines?: No Do you have trouble getting transportation to medical appointments?: No Do you have trouble paying your heating and electricity bill?: No Do you have trouble taking care of your child, family member or friend?: No Do you have trouble with day-to-day activities such as bathing, preparing meals, shopping, managing finances, etc.?: No Are you currently unemployed and looking for a job?: No Are you interested in more education?: No Please select the resources that you would like help with: None Currently or been in a relationship where the following occur: No concerns reported THRIVE Score: 0 AUDIT C Alcohol Use Questionnaire (AUDIT-C) 1. How often do you have a drink containing alcohol?: Never 3. How often do you have six or more drinks on one occasion?: Never Total Score: 0 CLEMENT-7 AMB Questionnaire CLEMENT-7 Date CLEMENT - 7 assessed: 08/07/24 Feeling nervous, anxious, or on edge: 0 = Not at all Not being able to stop or control worryin = Not at all Worrying too much about different things: 0 = Not at all Trouble relaxin = Not at all Being so restless that it is hard to sit still: 0 = Not at all Becoming easily annoyed or irritable: 0 = Not at all Feeling afraid as if something awful might happen: 0 = Not at all Total CLEMENT-7 score (0-4 normal; 5-9 mild; 10-14 moderate; 15-21 severe): 0 Source: Developed by Stella Chiang [employer], Kurtis Myles and colleagues, with an educational jamal from [employer]. CLEMENT-7 Assessment Billing CLEMENT-7 Assessment Tool: CELMENT-7 Assessment 82086 Review of Systems Const Denies headache(s) Eyes Denies loss of vision ENT Denies vertigo, Denies dizziness, Denies headache(s) and Denies sore throat Card Denies chest pain, Denies leg edema and Denies lightheadedness Resp Denies cough, Denies hemoptysis and Denies wheezing GI Denies abdominal pain, Denies melena, Denies constipation, Denies diarrhea and Denies vomiting Denies urinary frequency, Denies dysuria and Denies urinary urgency Musc Denies arthralgias, Denies joint swelling, Denies numbness and Denies tingling Neuro Denies Abnormal speech present, Denies behavioral changes, Denies vertigo, Denies dizziness, Denies headache(s), Denies loss of vision, Denies memory loss, Denies numbness and Denies tingling Psych Denies anxiety, Denies behavioral changes, Denies depression, Denies memory loss and Denies panic attacks Ye/Lymph Denies easy bleeding and Denies easy bruising Aller/Immun Denies wheezing Physical exam (Primary Care) Vital Signs: Last Vital Signs Temp 97.5 F 08/07/24 10:31 Pulse 80 08/07/24 10:31 BP 102/58 L 08/07/24 10:31 Pulse Ox 95 08/07/24 10:31 BMI result Body Mass Index 34.0 BMI Assessment/Plan discussion: High BMI High, discussed plan: lifestyle, weight reduction, dietary and physical activity Tobacco/Smoking Status: Tobacco use Status Tobacco use date assessed 08/07/24 08/07/24 10:38 Patient Tobacco Use Status Former Tobacco user 08/07/24 09:46 Tobacco use type Cigarette 08/07/24 09:46 e-Cigarette/Vaping Use Never Used 08/07/24 09:46 Are you ready to quit: No Tobacco cessation counseling provided: Yes Items discussed: Nicotine replacement Relapse Prevention: discussed the importance of a supportive environment, discussed negative mood or depression after quitting, weight gain after smoking is common and discussed dietary, exercise and/or lifestyle changes Number of minutes spent counselin CPT code: 00551 - 4-10 Minutes PHQ-9: PHQ-9 Score PHQ-9: Total score 0 08/07/24 10:49 Depression Screening Interpretation: Negative Thrive Assessment: Date of Thrive Assessment Date Thrive assessed 08/07/24 08/07/24 10:38 Currently or been in a relationship where the following occur: No concerns reported Const General: healthy appearing, no acute distress, alert and awake Nutritional Appearance: well nourished Orientation/consciousness: oriented to person, oriented to place and oriented to time HENMT Ears: TM's normal bilaterally General nose exam: Normal nasal mucous membranes and turbinates present Eyes Conjunctivae: conjunctivae normal Sclerae: sclerae normal Pupils: Equal, round and reactive pupils present Neck Neck: Yes no lymphadenopathy and Yes no JVD Thyroid: Thyroid normal Carotids: no bruits Resp Effort & Inspection: normal respiratory effort and not tachypneic Auscultation: no crackles, no rales, no rhonchi and no wheezes Cardio Rate: regular rate Rhythm: regular rhythm Heart sounds: no murmurs and normal S1 and S2 GI Palpation (GI): Soft to palpation, nontender, no hepatomegaly and no splenomegaly Auscultation: normal bowel sounds Skin General skin exam: no rashes or lesions noted and dry skin Neuro General: oriented to person, oriented to place and oriented to time Cranial nerves: Yes Equal, round and reactive pupils present Speech: No Abnormal speech present Gait exam (Neuro): Normal gait present Motor exam (neuro): no tremor noted Extrem Right upper extremity: full ROM Left upper extremity: full ROM Right lower extremity: full ROM; no edema Left lower extremity: full ROM; no edema Psych Mental Status: mental status grossly normal Speech and movement: Normal speech and movement present Affect: normal affect Attitude: cooperative Thought process: Normal thought process present Coding Level of Care Code Est Pt Level 4 (66798) Diagnoses Essential hypertension I10 Hypertension type: essential hypertension Bipolar 1 disorder F31.9 Simple chronic bronchitis J41.0 COPD type: chronic bronchitis Chronic bronchitis type: simple Anxiety F41.9 ANTONIA (acute kidney injury) N17.9 MDD (major depressive disorder), recurrent episode, moderate F33.1 Tobacco dependence F17.200 Additional Codes CLEMENT-7 Assessment Billing - CLEMENT-7 Assessment Tool: CLEMENT-7 Assessment 46001 ([id number]) PHQ-9 - 61543 - PHQ-9 Billing: Yes ([id number]) Vital Signs *Quality* - CPT code: 10359 - 4-10 Minutes ([id number]) Assessment & Plan Assessment & Plan (1) HTN (hypertension): Code(s): I10 - Essential (primary) hypertension Category: Medical Qualifiers: Hypertension type: essential hypertension Qualified Code(s): I10 - Essential (primary) hypertension Plan: Patient's blood pressure on the low side today in office, she reports taking an anxiety pill today. . She reports she has been anxious and has stopped smoking cigarettes and likely going through nicotine withdrawal at this moment. She is compliant with lisinopril 20 mg (2) Bipolar 1 disorder: Code(s): F31.9 - Bipolar disorder, unspecified Category: Medical Plan: Patient lost her mental health therapist as her mental health therapy group has goes down. She would like to be reestablished with a mental health therapist to continue cognitive behavioral therapy. She now has PCP managing her mental health medication including divalproex and clonazepam. (3) COPD (chronic obstructive pulmonary disease): Code(s): J44.9 - Chronic obstructive pulmonary disease, unspecified Category: Medical Qualifiers: COPD type: chronic bronchitis Chronic bronchitis type: simple Qualified Code(s): J41.0 - Simple chronic bronchitis Plan: She recently recovered from an upper respiratory infection. Unfortunately still smoking a few cigarettes per day and has struggled to quit smoking. She does have access to an albuterol inhaler to use on an as needed basis. (4) Anxiety: Code(s): F41.9 - Anxiety disorder, unspecified Category: Medical Plan: As above patient continues to suffer with anxiety. She does use clonazepam on a daily basis (5) ANTONIA (acute kidney injury): Code(s): N17.9 - Acute kidney failure, unspecified Category: Medical Plan: Rwcently started lasix for chest congestion, likely a ANTONIA , Will recheck CMP in 2 weeks. (6) MDD (major depressive disorder), recurrent episode, moderate: Code(s): F33.1 - Major depressive disorder, recurrent, moderate Category: Medical Plan: Patient's PHQ-9 score 0, does see a mental health therapist and a psychiatrist whom manage his her medication (7) Tobacco dependence: Code(s): F17.200 - Nicotine dependence, unspecified, uncomplicated Category: Medical Plan: As per HPI patient continues to smoke a few cigarettes per day and does understand she needs to completely quit smoking. She does have access to nicotine replacement Orders: Orders Comprehensive Met. Panel 2 Weeks N17.9 - Acute kidney failure, unspecified Medications: Refilled fluticasone propionate 50 mcg/actuation (Allergy Relief (fluticasone)) administer into each nostril 1 spray intranasal DAILY 16 grams 0RF Patient Instructions: :Goal : Blood pressure to remain below 140/90, LDL to be below 130 Barriers: Adherence to physical activity and healthy eating habits
[2024-08-07 10:31] VITALS: BP 102/58; PULSE 80; TEMP 36.4; O2SAT 95; BMI 34.0
== END 2024-08-07 11:11 | disposition home or self-care (01) ==
LOC: HO.HMCH 09:33
PROVIDERS: PCP Physician Assistant; Visit Provider Physician Assistant
DX: J41.0 Simple chronic bronchitis (principal); F31.9 Bipolar disorder, unspecified; N17.9 Acute kidney failure, unspecified; I10 Essential (primary) hypertension; F41.9 Anxiety disorder, unspecified; F17.200 Nicotine dependence, unspecified, uncomplicated

== ENCOUNTER 2024-08-10 09:06 | Outpatient (AMB) | payer OTHER, SELFPAY ==
--- NOTE | 2024-08-10 09:12 | A.OFFVISCC_ITS ---
Intake Visit Reasons: MAT Tele Allergies codeine [CODEINE] Allergy (Mild, Verified 08/07/24 10:46) RASH varenicline [From Chantix] Allergy (Unknown, Verified 08/07/24 10:46) headaches venlafaxine [From Effexor] Adverse Reaction (Mild, Verified 08/07/24 10:46) gi upset HPI HPI MAT Tele: Details: Patient presents for follow up via telehealth Currently prescribed Suboxone 12mg daily Tolerating current dose --denies any side effects Recently saw PCP --needs follow up labs for kidney function Has a new therapist Review of Systems Const Reports as per HPI and Reports no additional complaints Telehealth Telehealth Telehealth Platform: Telephone Location of provider rendering services: practice address Location of patient: address on file Patient Identification confirmed using: Name, : Yes Telehealth method: voice only Patient verbally consented to treatment: Yes Patient verbally consented to billing insurance company: Yes Minutes spent on Phone/Video with Pt.: 13 PFSH Medical History GERD (gastroesophageal reflux disease) Opioid dependence Anxiety History of chronic back pain Hx of alopecia History of opioid abuse Depression Hyperlipidemia Right lumbar radiculopathy Bipolar 1 disorder Surgical History History of oral surgery Hx of tubal ligation History of carpal tunnel release of both wrists Family History Father No problems noted. Mother Heart disease Diabetes Brother Heart disease Brother Heart disease Sister Diabetes Social History Housing: House Are you a primary healthcare administrative assistant to a significant other at home: No Alcohol intake: never Patient Tobacco Use Status: Former Tobacco user Tobacco use type: Cigarette Cigarettes Per Day: 0 (3 a month) Years Smoked: 40 +/- e-Cigarette/Vaping Use: Never Used Second Hand Smoke Exposure: No service: No Current occupational status: unemployed Cognitive needs: No Hearing needs: No Vision needs: No Assessment & Plan Assessment & Plan (1) Opioid dependence: Code(s): F11.20 - Opioid dependence, uncomplicated Category: Medical Qualifiers: Substance use status: uncomplicated Qualified Code(s): F11.20 - Opioid dependence, uncomplicated Plan: * continue suboxone at current dose * refill now yet due * follow up 2 months
== END 2024-08-10 09:24 | disposition home or self-care (01) ==
LOC: HO.HCC 09:06
PROVIDERS: PCP Physician Assistant; Visit Provider Nurse Practitioner Psychiatric/Mental Health
DX: F11.20 Opioid dependence, uncomplicated (principal)
CPT/HCPCS: 99213

== ENCOUNTER → 2024-08-10 09:06 | Outpatient (BNVA) | payer OTHER, SELFPAY | PROVIDERS: PCP Physician Assistant; Visit Provider Nurse Practitioner Psychiatric/Mental Health | DX: Z51.81 Encounter for therapeutic drug level monitoring (principal); F11.20 Opioid dependence, uncomplicated; I10 Essential (primary) hypertension ==

== ENCOUNTER 2024-09-19 03:10 | Emergency (ER) | payer OTHER, SELFPAY ==
[2024-09-19 03:20] VITALS: BP 186/98; PULSE 83; O2SAT 98
--- NOTE | 2024-09-19 03:37 | ED_ITS ---
HPI - Allergic Reaction General Chief complaint: Allergic Reaction Stated complaint: SWOLLEN TONGUE,POSSIBLE ALLERGY REAC/ HYPERTENSIVE Time Seen by Provider: 09/19/24 03:37 Source: patient Mode of arrival: ambulatory Limitations: no limitations History of Present Illness ED Provider: Dr. Bolivar Zarco HPI narrative: 63-year-old female with a history of GERD, hypertension on lisinopril, hyperlipidemia, COPD, gastritis, anxiety who presents emergency department for evaluation of tongue swelling. Patient states that she ate dinner at 21:00 hours but had no itchiness, tongue swelling, was swelling her rash that time. She went to bed around 23:00 hours and she woke up at 0130 hours with tongue swelling. She states this the 1st time this ever happened to her. she denied difficulty swallowing, nausea, vomiting, chest pain, shortness of breath, rash or pruritus. She states that she has not started any new medications. She states she does take lisinopril for her hypertension And has been on this medication for many years. Related Data Previous Rx's ?Medication ?Instructions ?Recorded naloxone 4 mg/actuation nasal 4 mg intranasal Q2M PRN opioid 08/25/22 spray (Narcan) overdose #2 ea ferrous sulfate 325 mg (65 mg 325 mg PO DAILY 30 days #30 tabs 01/31/23 iron) tablet cetirizine 10 mg tablet 10 mg PO DAILY #30 tabs 09/06/23 miscellaneous medical supply #1 ea 10/12/23 (Blood Pressure Cuff) nicotine (polacrilex) 2 mg buccal 2 mg buccal Q4H PRN nicotine 10/12/23 lozenge cravings #72 ea carisoprodol 350 mg tablet (Soma) 350 mg PO BEDTIME PRN muscle pain 01/26/24 4 days #4 tabs bisacodyl 5 mg tablet,delayed 10 mg (2 x 5 mg) PO BEDTIME #180 03/09/24 release (Dulcolax (bisacodyl)) tabs furosemide 40 mg tablet (Lasix) 40 mg PO DAILY edema 30 days #30 03/23/24 tabs lisinopril 20 mg tablet 20 mg PO DAILY #90 tabs 04/18/24 albuterol sulfate 90 mcg/actuation 1 inh inhalation QID PRN shortness 04/27/24 aerosol inhaler of breath or wheezing 30 days #8.5 grams polyethylene glycol 3350 17 238 g PO ONCE #238 grams 06/05/24 gram/dose oral powder (Miralax) divalproex 250 mg tablet,extended 250 mg PO DAILY 90 days #90 tabs 08/06/24 release 24 hr fluticasone propionate 50 1 spray intranasal DAILY #16 grams 08/07/24 mcg/actuation nasal spray,suspension (Allergy Relief (fluticasone)) buprenorphine 4 mg-naloxone 1 mg 1 film buccal Q24H #60 ea 08/15/24 sublingual film buprenorphine 8 mg-naloxone 2 mg 1 film buccal DAILY #60 ea 08/15/24 sublingual film magnesium oxide 500 mg PO DAILY 90 days #90 tabs 08/15/24 ibuprofen 800 mg tablet 800 mg PO TID PRN for pain #90 tabs 08/21/24 atorvastatin 10 mg tablet 10 mg PO DAILY 90 days #90 tabs 08/27/24 clonazepam 1 mg tablet 1 mg PO DAILY 30 days #30 tabs 08/28/24 diphenhydramine HCl 25 mg capsule 50 mg (2 x 25 mg) PO Q6H PRN 09/19/24 Tongue swelling, itchiness #20 caps famotidine 20 mg tablet 20 mg PO DAILY #14 tabs 09/19/24 prednisone 20 mg tablet 60 mg (3 x 20 mg) PO DAILY 5 days 09/19/24 #15 tabs omeprazole 20 mg capsule,delayed 20 mg PO DAILY 90 days #90 caps 09/22/24 release Allergies Allergy/AdvReac Type Severity Reaction Status Date / Time codeine [CODEINE] Allergy Mild RASH Verified 09/19/24 03:43 varenicline [From Chantix] Allergy Unknown headaches Verified 09/19/24 03:43 venlafaxine [From Effexor] AdvReac Mild gi upset Verified 09/19/24 03:43 Review of Systems 2 Review of Systems: Yes all other systems are reviewed and are negative [facility] Past Medical History [facility] Narrative: social history: She smokes 3 cigarettes per day times 30 years. She denies alcohol use. she denies drug use. Medical History GERD (gastroesophageal reflux disease) Opioid dependence Anxiety History of chronic back pain Hx of alopecia History of opioid abuse Depression Hyperlipidemia Right lumbar radiculopathy Bipolar 1 disorder Surgical History History of oral surgery Hx of tubal ligation History of carpal tunnel release of both wrists Family History Family History Father No problems noted. Mother Heart disease Diabetes Brother Heart disease Brother Heart disease Sister Diabetes Social History Social History Housing: House Are you a primary critical care registered nurse to a significant other at home: No Alcohol intake: never Patient Tobacco Use Status: Former Tobacco user Tobacco use type: Cigarette Cigarettes Per Day: 0 (3 a month) Years Smoked: 40 +/- e-Cigarette/Vaping Use: Never Used Second Hand Smoke Exposure: No service: No Current occupational status: unemployed Cognitive needs: No Hearing needs: No Vision needs: No Physical Exam ED Vital Signs: Vital Signs - 24 hr 09/19/24 03:42 09/19/24 04:41 Temperature 98.4 F Pulse Rate 71 59 Respiratory Rate 18 Blood Pressure 152/89 H 155/53 H Pulse Oximetry 97 Oxygen Delivery Method Room Air BMI result Body Mass Index 30.9 Medications Administered Discontinued Medications Generic Name Dose Route Start Last Admin Trade Name Freq PRN Reason Stop Dose Admin Diphenhydramine HCl 50 mg 09/19/24 04:13 09/19/24 04:41 Diphenhydramine Hcl 50 Mg/Ml Vial IVPUSH 09/19/24 04:14 50 mg ONCE STA Administration Epinephrine 0.3 mg 09/19/24 04:13 09/19/24 04:41 Epinephrine 1 Mg/Ml Vial IM 09/19/24 04:14 0.3 mg STAT STA Administration Famotidine 20 mg 09/19/24 04:13 09/19/24 04:41 Famotidine/Pf 20 Mg/2 Ml Vial IVPUSH 09/19/24 04:14 20 mg ONCE ONE Administration Methylprednisolone Sodium Succinate 125 mg 09/19/24 04:13 09/19/24 04:41 Methylprednisolone Sod Succ 125 Mg/2 Ml Vial IVPUSH 09/19/24 04:14 125 mg ONCE ONE Administration Medical Decision Making Medical Decision Making MDM Narrative: 63-year-old female with a history of GERD, hypertension on lisinopril, hyperlipidemia, COPD, gastritis, anxiety who presents emergency department for evaluation of tongue swelling which began at 01:30 hours. She denied any difficulty swallowing her saliva, throat tightness, chest pain, shortness of breath, nausea, vomiting, rash or pruritus. Patient's hypertension is injury with lisinopril for many years. Differential diagnosis: Includes but is not limited to allergic reaction to unknown allergen, angioedema secondary to YOSVANY inhibitor, anemia, electrolyte abnormalities Course: My independent interpretation of patient's laboratory evaluation is as follows: CBC was normal. BUN elevated 29. Glucose was elevated 127. AST and ALT are elevated 33 and 34. The patient's presentation Could be be secondary to angioedema caused by YOSVANY inhibitors or allergic reaction. the patient was treated with Benadryl 50 mg IV, Pepcid 20 mg IV, Solu-Medrol. patient was observed in the emergency department for 3 hours after receiving the epinephrine injection. Patient states that her tongue has reduced in size and she has had no worsening of her symptoms. At this time, the patient can be discharged home. She was given strict instructions to call 911 event that her tongue became more swollen, if she had difficulty swallowing, Throat tightness, difficulty breathing, rash,or if she develops any new symptoms that are concerning to her. Patient was discharged home with a prescription for prednisone 60 mg 3 times a day for 5 days. Admission/Observation Consideration of admission/observation: Escalation of care including admission/observation considered ( yes) Lab Data MDM Lab Attestation statement: I reviewed the patient's lab results. 09/19/24 05:19 09/19/24 05:19 Labs: Lab Results 09/19/24 Range/Units 05:19 WBC 10.0 (4.8-10.8) X10*3/uL RBC 4.60 (4.20-5.50) X10*6/uL Hgb 13.1 (12.0-16.0) g/dl Hct 40.8 (37.0-47.0) % MCV 88.7 (80.0-98.0) fL MCH 28.5 (27.0-33.0) pg MCHC 32.1 (31.0-35.0) g/dl RDW 13.8 (11.0-16.0) % Plt Count 363 (160-400) X10*3/uL MPV 10.4 (9.4-12.3) fL Immature Gran % (Auto) 0.3 (0.0-0.4) % Neut % (Auto) 55.5 (45-73) % Lymph % (Auto) 34.2 (20-40) % [place] % (Auto) 6.5 (2-11) % Eos % (Auto) 2.9 (0-4) % Baso % (Auto) 0.6 (0-2) % Lymph # (Auto) 3.4 (1.2-4.9) X10*3/uL [place] # (Auto) 0.7 (0.1-1.2) X10*3/uL Eos # (Auto) 0.3 (0.0-0.4) X10*3/uL Baso # (Auto) 0.1 (0.0-0.2) X10*3/uL Abs Immat Gran (auto) 0.03 (0.00-0.03) X10*3/uL Absolute Neuts (auto) 5.6 (2.0-8.3) x10*3/uL Absolute Nucleated RBC 0.000 (0.0-0.012) X10*3/uL Nucleated RBC % (auto) 0.0 (0.0-0.2) /100WBC ESR 16 (0-20) MM/HR Sodium 140 (135-145) mmol/L Potassium 4.6 (3.3-5.1) mmol/L Chloride 104 (96-108) mmol/L Carbon Dioxide 25 (22-29) mmol/L Anion Gap 16 (12-20) BUN 29 H (9-16) mg/dL Creatinine 1.40 (0.5-1.4) mg/dL Estim Creat Clear Calc 47.9 Estimated GFR 38 Random Glucose 127 H (60-115) mg/dL Calcium 9.4 D (8.4-10.2) mg/dL Magnesium 2.3 (1.6-2.6) mg/dL Total Bilirubin 0.5 (0.0-1.0) mg/dL AST 33 H (5-31) U/L ALT 34 H (0-31) U/L Alkaline Phosphatase 95 (39-117) U/L C-Reactive Protein 0.15 (< or = 0.50) mg/dL Total Protein 8.4 H (6.5-8.0) g/dL Albumin 4.7 (3.5-5.0) g/dL Lipase 29 (8-78) U/L Prescription Management I considered prescription management with: Other ( anti-inflammatory steroid: Prednisone) Chronic Conditions Patient?s care impacted by: Hypertension and Other ( COPD) Critical Care Time Critical Care Time Critical Care Time: Yes Total Critical Care Time: 35 Attestation: Critical Care: The patient was critically ill with a high probability of imminent or life threatening deterioration. I spent greater than 30 minutes of discontinuous time evaluating the patient,delivering critical care at the bedside, discussing and evaluating pertinent data with consultants. Critical care time does not include time spent performing separately billable procedures or teaching. Total time spent performing critical care was 35 minutes. Discharge Plan Discharge Clinical Impression: Angioedema of tongue Patient Disposition: Home, Self-Care Instructions: Angioedema (ED) Additional Instructions: Your exam is consistent with angioedema of your tongue. The swelling is most likely caused by lisinopril and not an allergic reaction. You need to stop your lisinopril and your doctor will need to prescribe another medication for your blood pressure. You were treated here in the emergency department with epinephrine IM, Benadryl 50 mg IV, Solu-Medrol 125 mg IV and Pepcid 20 mg IV. Take prednisone 20 mg pills, 3 pills once a day for 5 days. While you ?are taking prednisone, do not take any NSAIDs (Motrin, Advil, ibuprofen, Aleve, naproxen). Take Pepcid (famotidine) 20 mg pills, 1 pill once a day for 2 weeks. ?This medication reduces the amount of acid that your stomach produces and will help the inflammation in your stomach heal. Take Benadryl (diphenhydramine) 25 mg pills, 2 pills 4 times a day for the next 2-3 days to help reduce the swelling in your tone. This medication will make you sleepy. Do not drive or work while taking this medication. It may take several days your tongue to returned to normal. If your tongue he was getting bigger, if you are having difficulty swallowing, if you feel throat tightness, shortness of breath or developed a rash, call an ambulance to be brought to the emergency department for re-evaluation. Follow-up with your doctor in 2 days. Please return to the emergency department if your symptoms get worse or if you develop any symptoms that are concerning to you. Prescriptions: New prednisone 20 mg tablet 60 mg PO DAILY 5 Days Qty: 15 0RF famotidine 20 mg tablet 20 mg PO DAILY Qty: 14 0RF diphenhydramine HCl 25 mg capsule 50 mg PO Q6H PRN (Reason: Tongue swelling, itchiness) Qty: 20 0RF No Action ferrous sulfate 325 mg (65 mg iron) tablet 325 mg PO DAILY 30 Days Qty: 30 2RF carisoprodol [Soma] 350 mg tablet 350 mg PO BEDTIME PRN (Reason: muscle pain) 4 Days Qty: 4 0RF furosemide [Lasix] 40 mg tablet 40 mg PO DAILY 30 Days Qty: 30 1RF lisinopril 20 mg tablet 20 mg PO DAILY Qty: 90 1RF albuterol sulfate 90 mcg/actuation HFA aerosol inhaler 1 inh inhalation QID PRN (Reason: shortness of breath or wheezing) 30 Days Qty: 8.5 1RF divalproex 250 mg tablet extended release 24 hr 250 mg PO DAILY 90 Days Qty: 90 2RF magnesium oxide 500 mg magnesium tablet 500 mg PO DAILY 90 Days Qty: 90 2RF buprenorphine-naloxone 4-1 mg film 1 film buccal Q24H Qty: 60 0RF buprenorphine-naloxone 8-2 mg film 1 film buccal DAILY Qty: 60 0RF ibuprofen 800 mg tablet 800 mg PO TID PRN (Reason: for pain) Qty: 90 2RF atorvastatin 10 mg tablet 10 mg PO DAILY 90 Days Qty: 90 2RF clonazepam 1 mg tablet 1 mg PO DAILY 30 Days Qty: 30 3RF omeprazole 20 mg capsule,delayed release(DR/EC) 20 mg PO DAILY 90 Days Qty: 90 3RF cetirizine 10 mg tablet 10 mg PO DAILY Qty: 30 0RF bisacodyl [Dulcolax (bisacodyl)] 5 mg tablet,delayed release (DR/EC) 10 mg PO BEDTIME Qty: 180 4RF fluticasone propionate [Allergy Relief (fluticasone)] 50 mcg/actuation spray,suspension 1 spray intranasal DAILY Qty: 16 0RF Rx Instructions: administer into each nostril polyethylene glycol 3350 [Miralax] 17 gram/dose powder 238 g PO ONCE Qty: 238 0RF Rx Instructions: As directed by gastroenterology department at [facility] naloxone [Narcan] 4 mg/actuation spray,non-aerosol 4 mg intranasal Q2M PRN (Reason: opioid overdose) Qty: 2 0RF Rx Instructions: spray 1 dose into ONE nostril; alternate nostrils w each dose until help arrives (DME) Blood Pressure Cuff Misc See Rx Instructions .ROUTE .MEDSUPPLY Qty: 1 0RF Rx Instructions: test once per day / PRN nicotine (polacrilex) 2 mg lozenge 2 mg buccal Q4H PRN (Reason: nicotine cravings) Qty: 72 0RF Interventions: ED Discharge Assessment Last Done: 09/19/24 07:18 Discharge Date/Time: 09/19/24 07:21 Print Language: Korean
[2024-09-19 03:42] VITALS: BP 152/89; PULSE 71; RESP 18; TEMP 36.9; O2SAT 97; BMI 30.9
[2024-09-19 04:41] VITALS: BP 155/53; PULSE 59
[2024-09-19] MEDS: methylPREDNISolone Sod Succ 125 MG/2 ML VIAL IVPUSH (04:41)
[2024-09-19] MEDS: diphenhydrAMINE HCL 50 MG/ML VIAL IVPUSH (04:41)
[2024-09-19] MEDS: EPINEPHrine 1 MG/ML VIAL 0.3 MG IM (04:41)
[2024-09-19] MEDS: Famotidine/PF 20 MG/2 ML VIAL IVPUSH (04:41)
[2024-09-19 05:25] LABS: MANUAL DIFF FLAG NO
[2024-09-19 05:26] LABS: Basophils Absolute Auto 0.1 X10*3/uL (0.0-0.2); Basophils Percent Auto 0.6 % (0-2); Eosinophils Absolute Auto 0.3 X10*3/uL (0.0-0.4); Eosinophils Percent Auto 2.9 % (0-4); Hematocrit 40.8 % (37.0-47.0); Hemoglobin 13.1 g/dl (12.0-16.0); Imm Gran Abs Auto 0.03 X10*3/uL (0.00-0.03); Imm Gran Pct Auto 0.3 % (0.0-0.4); Lymphocytes Absolute Auto 3.4 X10*3/uL (1.2-4.9); Lymphocytes Percent Auto 34.2 % (20-40); Mean Corpuscular HGB Conc 32.1 g/dl (31.0-35.0); Mean Corpuscular Hemoglobin 28.5 pg (27.0-33.0); Mean Corpuscular Volume 88.7 fL (80.0-98.0); Mean Platelet Volume 10.4 fL (9.4-12.3); Monocytes Absolute Auto 0.7 X10*3/uL (0.1-1.2); Monocytes Percent Auto 6.5 % (2-11); Neutrophils Absolute Auto 5.6 x10*3/uL (2.0-8.3); Neutrophils Percent Auto 55.5 % (45-73); Platelet Count 363 X10*3/uL (160-400); Red Cell Distribution Width 13.8 % (11.0-16.0)
[2024-09-19 05:55] LABS: Alanine Aminotransferase 34 U/L (0-31); Albumin Level 4.7 g/dL (3.5-5.0); Alkaline Phosphatase 95 U/L (39-117); Anion Gap 16 (12-20); Aspartate Amino Transferase 33 U/L (5-31); Bilirubin Total 0.5 mg/dL (0.0-1.0); Blood Urea Nitrogen 29 mg/dL (9-16); C Reactive Protein 0.15 mg/dL (< or = 0.50); Calcium 9.4 mg/dL (8.4-10.2); Carbon Dioxide 25 mmol/L (22-29); Chloride 104 mmol/L (96-108); Creatinine Clr Calc Pharmacy 47.9; Estimated Glomerular Filt Rate 38; Glucose Random 127 mg/dL (60-115); Lipase 29 U/L (8-78); Magnesium 2.3 mg/dL (1.6-2.6); Potassium 4.6 mmol/L (3.3-5.1); Sodium 140 mmol/L (135-145); Total Protein 8.4 g/dL (6.5-8.0)
[2024-09-19 06:02] LABS: Erythrocyte Sedimentation Rate 16 MM/HR (0-20)
[2024-09-19 07:18] VITALS: BP 142/79; PULSE 64; RESP 18; TEMP 36.8; O2SAT 96
== END 2024-09-19 07:21 | disposition home or self-care (01) ==
PROVIDERS: Emergency Provider Emergency Medicine Emergency Medical Services; PCP Physician Assistant
DX: T78.3XXA Angioneurotic edema, initial encounter (principal); X58.XXXA Exposure to other specified factors, initial encounter; I10 Essential (primary) hypertension; E78.5 Hyperlipidemia, unspecified; J44.9 Chronic obstructive pulmonary disease, unspecified; Z79.899 Other long term (current) drug therapy
CPT/HCPCS: 36415; 80053; 83690; 83735; 85025; 85652; 86140; 96372; 96374; 96375; 99282; 99284; J0171; J1200; J1308; J2919

== ENCOUNTER 2024-10-03 07:58 | Outpatient (REF) | payer OTHER, SELFPAY ==
--- NOTE | ~2024-10-03 | US_ITS ---
EXAMINATION: US LOWER EXTREMITY VENOUS (REFLUX EXAM), BILATERAL CLINICAL INFORMATION: Varicose veins of right lower extremity with inflammation. COMPARISON: None. TECHNIQUE: Color flow triplex imaging and compression Doppler was performed to evaluate both the deep and the superficial systems bilaterally. To evaluate the superficial system, the examination was performed in the upright position. Color-flow Doppler ultrasound and compression ultrasound were utilized. In addition, maneuvers were utilized to demonstrate reflux. FINDINGS: 1. DEEP VENOUS ULTRASOUND OF THE RIGHT LOWER EXTREMITY: Common Femoral Vein: Compressible, normal respiratory variation and augmented flow. Femoral Vein: Compressible, normal color flow and augmentation. Popliteal Vein: Compressible, normal augmentation. Deep Reflux: There is no evidence of reflux in the deep system in either the common femoral vein, superficial femoral or the popliteal vein. There is no evidence of a Contreras's cyst. 2. SUPERFICIAL ULTRASOUND WITH DOPPLER OF RIGHT LOWER EXTREMITY: GREAT SAPHENOUS VEIN: Saphenofemoral Junction: 0.7 cm; Reflux: 0 ms Proximal Thigh: 0.3 cm; Reflux: 0 ms Mid Thigh: 0.2 cm; Reflux: 0 ms Distal Thigh: 0.3 cm; Reflux: 0 ms At Knee: 0.3 cm; Reflux: 0 ms Proximal Calf: 0.3 cm; Reflux: 0 ms Mid Calf: 0.3 cm; Reflux: 0 ms Distal Calf: 0.3 cm; Reflux: 0 ms DUPLICATED MEDIAL GREAT SAPHENOUS VEIN: Not imaged. DUPLICATED LATERAL GREAT SAPHENOUS VEIN: SFJ, 0.4 cm, no reflux. Mid thigh, 0.4 cm, no reflux. SMALL SAPHENOUS VEIN: Saphenopopliteal Junction: 0.2 cm; Reflux: 0 ms Proximal: 0.2 cm; Reflux: 0 ms Distal: 0.3 cm; Reflux: 0 ms VEIN OF GIACOMINI: Not imaged. PERFORATORS: Greater saphenous vein mid thigh, 0.3 cm, no reflux. Greater saphenous vein and proximal calf, 0.3 cm, no reflux. VARICOSITIES: Greater saphenous vein proximal thigh, 0.3 cm, no reflux. 3. DEEP VENOUS ULTRASOUND OF THE LEFT LOWER EXTREMITY: Common Femoral Vein: Compressible, normal respiratory variation and augmented flow. Femoral Vein: Compressible, normal color flow and augmentation. Popliteal Vein: Compressible, normal augmentation. Deep Reflux: There is no evidence of reflux in the deep system in either the common femoral vein, superficial femoral or the popliteal vein. There is no evidence of a Contreras's cyst. 4. SUPERFICIAL ULTRASOUND WITH DOPPLER OF LEFT LOWER EXTREMITY: GREAT SAPHENOUS VEIN: Saphenofemoral Junction: 0.9 cm; Reflux: 0 ms Proximal Thigh: 0.4 cm; Reflux: 0 ms Mid Thigh: 0.3 cm; Reflux: 0 ms Distal Thigh: 0.4 cm; Reflux: 0 ms At Knee: 0.3 cm; Reflux: 0 ms Proximal Calf: 0.2 cm; Reflux: 0 ms Mid Calf: 0.3 cm; Reflux: 0 ms Distal Calf: 0.3 cm; Reflux: 0 ms DUPLICATED MEDIAL GREAT SAPHENOUS VEIN: Not imaged. DUPLICATED LATERAL GREAT SAPHENOUS VEIN: SFJ, 0.4 cm, no reflux. Mid thigh, 0.1 cm, no reflux. SMALL SAPHENOUS VEIN: Saphenopopliteal Junction: 0.3 cm; Reflux: 0 ms Proximal: 0.3 cm; Reflux: 0 ms Distal: 0.3 cm; Reflux: 0 ms VEIN OF GIACOMINI: Not imaged. PERFORATORS: Greater saphenous vein mid thigh, 0.3 cm, no reflux. Greater saphenous vein mid calf, 0.2 cm, no reflux. VARICOSITIES: Greater saphenous vein and midcalf, 0.3 cm, no reflux. US/US venous duplex LE BI IMPRESSION: RIGHT: 1. No DVT or hemodynamically significant reflux in the deep venous system. 2. No hemodynamically significant reflux in the superficial venous system. 3. Solitary varicosity greater saphenous vein proximal thigh measuring 0.3 cm, with no reflux. LEFT: 1. No DVT or hemodynamically significant reflux in the deep venous system. 2. No hemodynamically significant reflux in the superficial venous system. 3. Solitary varicosity greater saphenous vein and midcalf measuring 0.3 cm, with no reflux. Electronically signed by: Samy Pendleton MD 10/04/2024 12:25 PM EDT
--- OUTSIDE RECORDS SUMMARY | 2024-10-03 08:01 | XMS_ITS | Clinical Summary ---
Author Organization [employer] Address [address] [place] [address] Care Team Providers Care Visiting Teacher Name Role Phone Unavailable Primary Care Provider [...] FIT 1961 FOBT 1960 HIV Screening 1961 SDOH Screening 1961 Sigmoidoscopy 1961 Alcohol/Substance [...] patient's age to complete this topic Insurance [facility] MEDICAID [facility] ADULT [facility] [address] [place] [id number]
== END 2024-10-03 07:59 | disposition home or self-care (01) ==
LOC: HO.US 07:58
PROVIDERS: PCP Physician Assistant; Visit Provider Physician Assistant Surgical
DX: I83.11 Varicose veins of right lower extremity with inflammation (principal); I83.12 Varicose veins of left lower extremity with inflammation
CPT/HCPCS: 93970

== ENCOUNTER → 2024-10-03 08:00 | Outpatient (BNV) | payer OTHER, SELFPAY | PROVIDERS: PCP Physician Assistant; Visit Provider Radiology Diagnostic Radiology | DX: I82.412 Acute embolism and thrombosis of left femoral vein (principal) | CPT/HCPCS: 93970 ==

== ENCOUNTER 2024-10-09 09:01 | Outpatient (AMB) | payer OTHER, SELFPAY ==
--- NOTE | 2024-10-09 09:10 | A.OFFVIS_ITS ---
Intake Visit Reasons: follow up s/p [facility] 10/03/24 Intake Note: Patient presents for follow up [facility] 10/03/24. No complaints. Accompanied by: Self / Same As Patient Allergies codeine [CODEINE] Allergy (Mild, Verified 10/09/24 09:11) RASH varenicline [From Chantix] Allergy (Unknown, Verified 10/09/24 09:11) headaches venlafaxine [From Effexor] Adverse Reaction (Mild, Verified 10/09/24 09:11) gi upset HPI HPI follow up s/p [facility] 10/03/24: Details: Mally is presenting today for a follow up to [facility], performed on 10/03/24. She states the swelling has gone down significantly since we last saw her, on 06/05. She states she has had angioedema recently, likely due to Lisinopril use. She denies any new concerns. [facility] Medical History GERD (gastroesophageal reflux disease) Opioid dependence Anxiety History of chronic back pain Hx of alopecia History of opioid abuse Depression Hyperlipidemia Right lumbar radiculopathy Bipolar 1 disorder Surgical History History of oral surgery Hx of tubal ligation History of carpal tunnel release of both wrists Family History Father No problems noted. Mother Heart disease Diabetes Brother Heart disease Brother Heart disease Sister Diabetes Social History Housing: House Are you a primary medicare sales executive to a significant other at home: No Alcohol intake: never Patient Tobacco Use Status: Former Tobacco user Tobacco use type: Cigarette Cigarettes Per Day: 0 (3 a month) Years Smoked: 40 +/- e-Cigarette/Vaping Use: Never Used Second Hand Smoke Exposure: No service: No Current occupational status: unemployed Cognitive needs: No Hearing needs: No Vision needs: No Review of Systems Const Reports as per HPI and Denies weakness ENT Reports Normal hearing present and Denies dizziness Card Reports as per HPI, Denies chest pain, Denies chest pain at rest, Denies chest pain with activity, Denies dyspnea and Denies dyspnea on exertion Resp Reports as per HPI, Denies cough, Denies dyspnea and Denies dyspnea on exertion GI Reports as per HPI, Denies abdominal pain, Denies nausea and Denies vomiting Musc Denies numbness Skin/Breast Reports as per HPI, Denies erythema and Denies wounds Neuro Reports Normal hearing present, Denies dizziness, Denies numbness, Denies Sensory deficit (Neuro) and Denies weakness Psych Reports no additional complaints Endo Reports no additional complaints Physical Exam Const General: healthy appearing and no acute distress Orientation/consciousness: patient oriented x3 HEENT Head: Yes normal to inspection Ears: hearing grossly normal bilaterally Mouth: Normal oral and palatal mucosa present Resp Effort & Inspection: normal respiratory effort and able to speak in complete sentences Auscultation: clear to auscultation bilaterally Cardio Jugular venous distension: no JVD Rate: regular rate Rhythm: regular rhythm Heart sounds: S1 normal heart sound present and S2 normal heart sound present Bruits: no abdominal aortic bruits, no carotid bruits, no femoral bruits and no renal bruits Peripheral pulses: Peripheral pulses 2+ throughout GI Inspection: Yes normal to inspection Palpation (GI): No Abdominal aortic bruit present Skin General skin exam: no rashes or lesions noted Wounds: no wounds Hair: normal Neuro General: patient oriented x3 Cranial nerves: Yes Normal hearing present Cognition (Neuro): normal cognition Gait exam (Neuro): Normal gait present Motor exam (neuro): 5/5 motor strength present throughout Sensory Exam: No Sensory deficit (Neuro) Extrem Other: Bilateral lower extremities: trace peripheral edema noted. Palpable DP pulses. Discoloration, slightly decreased, noted from the tibial tuberosities down to her feet. General: Yes normal to inspection, Yes full ROM, Yes capillary refill normal and Yes normal gait Results Reviewed Results Reviewed: Brief summary of venous insufficiency testing is as follows: right great saphenous vein: negative right small saphenous vein: negative right accessory vein: none present left great saphenous vein: negative left small saphenous vein: negative left accessory vein: none present Please note there is no evidence of any venous aneurysms or significant tortuosity Assessment & Plan Assessment & Plan (1) Varicose veins of both lower extremities with inflammation: Code(s): I83.11 - Varicose veins of right lower extremity with inflammation; I83.12 - Varicose veins of left lower extremity with inflammation Category: Medical Plan: Mally is presenting today as a follow up to [facility] on 10/03/24 due to bilateral lower extremity swelling. There was no insufficiency noted on US. She states the swelling is now intermittent. She states she is more sedentary and is only putting her feet up sometimes; she states the swelling is worse when her feet dangle. We discussed to continue with compression socks, physical activity (light walking), and elevation whenever she is sitting down. We discussed the importance of a healthy, well balanced diet. We did discuss the importance of smoking cessation. We discussed that if she has any vascular concerns in the future, she can reach out to us at any point. Thank you for allowing us to participate in the patient's care. If there are any questions or concerns, please do not hesitate to reach out to us. Coding Level of Care Code Est Pt Level 4 (31059) Diagnoses Varicose veins of both lower extremities with inflammation I83.11; I83.12 Comment review of US
--- OUTSIDE RECORDS SUMMARY | 2024-10-09 09:37 | XMS_ITS | Clinical Summary ---
Author Organization [employer] Address [address] [facility] [address] [place] [address] Care Team Providers Care Pantographer Name Role Phone Unavailable Primary Care Provider [...] Screening 1961 SDOH Screening 1961 Sigmoidoscopy 1961 Disability Screening 1961 Alcohol/Substance Use Screening 1973 Hepatitis C [...] patient's age to complete this topic Meningococcal B Vaccine Aged Out No l onger eligible based on patient's age to complete this topic Meningococcal Vaccine Aged Out No bayron malissa eligible based on patient's age to complete this topic RSV under 20 months Aged Out No longe r eligible based on patient's age to complete this topic Rotavirus Vaccines Aged Out No longer eligible based on patient's age to complete this topic Insurance [place] STAND AD[place] [facility]
== END 2024-10-09 09:23 | disposition home or self-care (01) ==
LOC: HO.HVS 09:02
PROVIDERS: PCP Physician Assistant; Visit Provider Physician Assistant Surgical
DX: I83.11 Varicose veins of right lower extremity with inflammation (principal); I83.12 Varicose veins of left lower extremity with inflammation
CPT/HCPCS: 99214

== ENCOUNTER → 2024-10-09 09:01 | Outpatient (BNVA) | payer OTHER, SELFPAY | PROVIDERS: PCP Physician Assistant; Visit Provider Physician Assistant Surgical | DX: I83.11 Varicose veins of right lower extremity with inflammation (principal); I83.12 Varicose veins of left lower extremity with inflammation | CPT/HCPCS: 99212 ==

== ENCOUNTER 2024-10-10 13:01 | Outpatient (AMB) | payer OTHER, SELFPAY ==
--- NOTE | 2024-10-10 13:17 | A.OFFVISCC_ITS ---
Vital Signs 10/10/24 13:18 BP 146/82 H Blood Pressure Location Lt brachial Position Sitting Pulse 91 Pulse Source Pulse Oximeter Pulse Oximetry (%) 98 Oxygen Delivery Method Room Air Intake Visit Reasons: mat visit Allergies codeine [CODEINE] Allergy (Mild, Verified 10/09/24 09:11) RASH varenicline [From Chantix] Allergy (Unknown, Verified 10/09/24 09:11) headaches venlafaxine [From Effexor] Adverse Reaction (Mild, Verified 10/09/24 09:11) gi upset HPI HPI mat visit: Details: She is doing well. She takes Suboxone 12/3 daily in 8/2 am and 4/1 pm dosing. Review of Systems Const All systems reviewed & are unremarkable except as noted in HPI and below Physical Exam Vital Signs: Last Vital Signs Pulse 91 10/10/24 13:18 BP 146/82 H 10/10/24 13:18 Pulse Ox 98 10/10/24 13:18 Oxygen Delivery Method Room Air 10/10/24 13:18 Const General: cooperative [facility] Medical History GERD (gastroesophageal reflux disease) Opioid dependence Anxiety History of chronic back pain Hx of alopecia History of opioid abuse Depression Hyperlipidemia Right lumbar radiculopathy Bipolar 1 disorder Surgical History History of oral surgery Hx of tubal ligation History of carpal tunnel release of both wrists Family History Father No problems noted. Mother Heart disease Diabetes Brother Heart disease Brother Heart disease Sister Diabetes Social History Housing: House Are you a primary insurance healthcare consultant to a significant other at home: No Alcohol intake: never Patient Tobacco Use Status: Former Tobacco user Tobacco use type: Cigarette Cigarettes Per Day: 0 (3 a month) Years Smoked: 40 +/- e-Cigarette/Vaping Use: Never Used Second Hand Smoke Exposure: No service: No Current occupational status: unemployed Cognitive needs: No Hearing needs: No Vision needs: No Assessment & Plan Assessment & Plan (1) Opioid dependence: Comment: She is doing well,but sometimes needs more dosing Code(s): F11.20 - Opioid dependence, uncomplicated Category: Medical Qualifiers: Substance use status: uncomplicated Qualified Code(s): F11.20 - Opioid dependence, uncomplicated Plan: Suboxone 8/2 bid,30 days and one refill and next visit televisit in two months. She doesnt need counseling at this time She doesnt need Hepatitis C or HIV testing she says at this time. Medications: New buprenorphine-naloxone 8-2 mg (Suboxone) 1 film sublingual BID 30 days 60 ea 1RF
[2024-10-10 13:18] VITALS: BP 146/82; PULSE 91; O2SAT 98
--- OUTSIDE RECORDS SUMMARY | 2024-10-10 13:37 | XMS_ITS | Clinical Summary ---
Author Organization [employer] Address [address] [facility] [address] [place] [address] Care Team Providers Care Packing And Shipping Clerk Name Role Phone Unavailable Primary Care Provider [...] this topic Insurance [place] STAND AD[place] [facility]
== END 2024-10-10 14:17 | disposition home or self-care (01) ==
LOC: HO.HID 13:01
PROVIDERS: PCP Physician Assistant; Visit Provider Internal Medicine
DX: F11.20 Opioid dependence, uncomplicated (principal)
CPT/HCPCS: 99213

== ENCOUNTER → 2024-10-10 13:01 | Outpatient (BNVA) | payer OTHER, SELFPAY | PROVIDERS: PCP Physician Assistant; Visit Provider Internal Medicine | DX: F11.20 Opioid dependence, uncomplicated (principal) | CPT/HCPCS: 99212 ==

== ENCOUNTER 2024-10-29 08:37 | Outpatient (AMB) | payer OTHER, SELFPAY ==
--- OUTSIDE RECORDS SUMMARY | 2024-10-29 08:46 | XMS_ITS | Clinical Summary ---
Author Organization [employer] Address [address] [facility] [address] [place] [address] Care Team Providers Care Data Science And Iot Manager Name Role Phone Unavailable Primary Care Provider [...] 2023-2 5 season) 2024 03/31/2022, 10/08/2021, 08/20/2020 Tobacco Screening 08/10/2024 08/11/2023 Influenza Vaccine (Season Ended) 2025 DTaP/Tdap/Td Vaccines (2 - T d or [...] this topic Insurance [place] ST[place] AD[place] [facility]
--- NOTE | 2024-10-29 08:57 | MHC.PC.OV ---
Vital Signs 10/29/24 09:02 Height 5 ft 7 in Weight 209 lb 8 oz BMI 32.8 BP 102/58 L Blood Pressure Location Lt brachial Position Sitting Pulse 79 Pulse Source Pulse Oximeter Temp 97.5 F Temp Source Temporal Artery Scan Pulse Oximetry (%) 97 Oxygen Delivery Method Room Air Intake Visit Reasons: [facility] [place] SWOLLEN TONGUE Handle Bar Assembler Required: No Accompanied by: Self / Same As Patient Allergies lisinopril Allergy (Severe, Verified 10/29/24 09:23) swolen toung codeine [CODEINE] Allergy (Mild, Verified 10/29/24 09:23) RASH varenicline [From Chantix] Allergy (Unknown, Verified 10/29/24 09:23) headaches amlodipine Adverse Reaction (Intermediate, Verified 10/29/24 09:26) lower extremity edema venlafaxine [From Effexor] Adverse Reaction (Mild, Verified 10/29/24 09:23) gi upset Tobacco use date assessed: 10/29/24 Dental Screening Dental Screen Date: 10/29/24 Did you have a dental visit in the last 12 months?: Yes Did you have a dental problem in the last 6 months where you did not have access to dental care?: No Was dental information given to patient?: Patient has dentist HPI [facility] [place] SWOLLEN TONGUE HPI Details patient is a 63-year-old female here today for an ER follow-up visit ?Patient has a past medical history significant for hyperlipidemia, generalized anxiety disorder, major depression, Bipolar disorder. Patient was seen at the ER in late August of 2024 for acute tongue swelling. Unclear etiology to patient's angioedema she reports not eating anything different or exposing herself to anything new around the time of her incident. Concern--> she reports they significant pain over the right lateral aspect of her hip and pelvis over the last week. She has tried [id number] analgesics though have not been effective. She reports the pain generally gets worse upon movement offer hip and pelvis. Hypertension: Blood pressure today acceptable, she continues on amlodipine 5 mg. She has noted bilateral lower extremity edema over the last 2 weeks and significant weight gain. She recently quit smoking and feels like she could having nicotine withdrawal and she has a bit anxious today in office. PLAN: Will discontinue amlodipine due to her lower extremity edema which may be the potential cause. .. Tobacco dependency: She reports she is still smoking a few cigarettes per day, has struggled to completely quit smoking Opiate dependency: Continues to follow the [facility] and continues on Suboxone. Has been sober from street opiates for quite awhile now. .. Anxiety : She reports anxiety has been fairly well controlled with current doses of her mental health medication. . Lower extremity edema: As above patient will discontinue amlodipine as may be a potential cause of her lower extremity edema. She recently underwent ultrasounds of her lower extremities without any notable vascular issue. Advised patient to restart Lasix for the next 2 weeks. Will supply patient with paper Rx for compression socks ..HLD:? Patient is compliant with statin therapy, will get repeat lipid panel to ensure appropriate LDL. ? .. ? MDD: ? She reports she is feeling better since she has been talking to a mental health therapist ( dorian)? through [facility]?.? Has not been set up with a psychiatrist yet. She continues on divalproex and clonazepam which have been helpful [facility] Medical History GERD (gastroesophageal reflux disease) Opioid dependence Anxiety History of chronic back pain Hx of alopecia History of opioid abuse Depression Hyperlipidemia Right lumbar radiculopathy Bipolar 1 disorder Surgical History History of oral surgery Hx of tubal ligation History of carpal tunnel release of both wrists Family History Father No problems noted. Mother Heart disease Diabetes Brother Heart disease Brother Heart disease Sister Diabetes Social History Housing: House Are you a primary critical care cns to a significant other at home: No Alcohol intake: never Patient Tobacco Use Status: Former Tobacco user Tobacco use type: Cigarette Cigarettes Per Day: 0 (3 a month) Years Smoked: 40 +/- Packs per year/per ci.00 e-Cigarette/Vaping Use: Never Used Second Hand Smoke Exposure: No service: No Current occupational status: unemployed Cognitive needs: No Hearing needs: No Vision needs: No Questionnaire PHQ-9 Over the last 2 weeks, how often have you been bothered by any of the following problems? 1. Little interest or pleasure in doing things: more than half the days 2. Feeling down, depressed, or hopeless: not at all 3. Trouble falling or staying asleep, or sleeping too much: not at all 4. Feeling tired or having little energy: more than half the days 5. Poor appetite or overeating: more than half the days 6. Feeling bad about yourself - or that you are a failure or have let yourself or your family down: not at all 7. Trouble concentrating on things, such as reading the newspaper or watching television: not at all 8. Moving or speaking so slowly that other people could have noticed. Or the opposite - being so fidgety or restless that you have been moving around a lot more than usual: not at all 9. Thoughts that you would be better off or of hurting yourself in some way: not at all Total score: 6 Depression Screening Interpretation: Positive Depression Screening Follow-up: Existing condition and In treatment Depression Screening Done: Yes 00382 - PHQ-9 Billing: Yes Source: Developed by Drs. Grady Gutierrez, Stella Gayle, Kurtis Myles and colleagues, with an educational jamal from [employer]. Thrive Questionnaire Date Thrive assessed: 10/29/24 I am a: Patient What is your living situation today?: I have a steady place to live Within the past 12 months, did the food you bought not last and you didn't have the money to get more?: Never true Within the past 12 months, did you worry whether your food would run out before you got money to buy more?: Sometimes True Do you have trouble paying for medicines?: No Do you have trouble getting transportation to medical appointments?: No Do you have trouble paying your heating and electricity bill?: No Do you have trouble taking care of your child, family member or friend?: No Do you have trouble with day-to-day activities such as bathing, preparing meals, shopping, managing finances, etc.?: I choose not to answer this question Are you currently unemployed and looking for a job?: No Are you interested in more education?: No Please select the resources that you would like help with: Daily support Currently or been in a relationship where the following occur: I choose not to answer THRIVE Score: 1 AUDIT C Alcohol Use Questionnaire (AUDIT-C) 1. How often do you have a drink containing alcohol?: Never 3. How often do you have six or more drinks on one occasion?: Never Total Score: 0 CLEMENT-7 AMB Questionnaire LCEMENT-7 Date CLEMENT - 7 assessed: 10/29/24 Feeling nervous, anxious, or on edge: 3 = Nearly every day Not being able to stop or control worryin = Nearly every day Worrying too much about different things: 1 = Several days Trouble relaxin = Nearly every day Being so restless that it is hard to sit still: 3 = Nearly every day Becoming easily annoyed or irritable: 2 = More than half the days Feeling afraid as if something awful might happen: 0 = Not at all Total CLEMENT-7 score (0-4 normal; 5-9 mild; 10-14 moderate; 15-21 severe): 15 Source: Developed by Drs. Grady Gutierrez, Stella Gayle, Kurtis Myles and colleagues, with an educational jamal from [employer]. CLEMENT-7 Assessment Billing CLEMENT-7 Assessment Tool: CLEMENT-7 Assessment 09641 Review of Systems Const Denies headache(s) Eyes Denies loss of vision ENT Denies vertigo, Denies dizziness, Denies headache(s) and Denies sore throat Card Denies chest pain, Denies leg edema and Denies lightheadedness Resp Denies cough, Denies hemoptysis and Denies wheezing GI Denies abdominal pain, Denies melena, Denies constipation, Denies diarrhea and Denies vomiting Denies urinary frequency, Denies dysuria and Denies urinary urgency Musc Denies arthralgias, Denies joint swelling, Denies numbness and Denies tingling Neuro Denies Abnormal speech present, Denies behavioral changes, Denies vertigo, Denies dizziness, Denies headache(s), Denies loss of vision, Denies memory loss, Denies numbness and Denies tingling Psych Denies anxiety, Denies behavioral changes, Denies depression, Denies memory loss and Denies panic attacks Ye/Lymph Denies easy bleeding and Denies easy bruising Aller/Immun Denies wheezing Physical exam (Primary Care) Vital Signs: Last Vital Signs Temp 97.5 F 10/29/24 09:02 Pulse 79 10/29/24 09:02 BP 102/58 L 10/29/24 09:02 Pulse Ox 97 10/29/24 09:02 Oxygen Delivery Method Room Air 10/29/24 09:02 BMI result Body Mass Index 32.8 Tobacco/Smoking Status: Tobacco use Status Tobacco use date assessed 10/29/24 10/29/24 09:15 Patient Tobacco Use Status Former Tobacco user 10/29/24 08:58 Tobacco use type Cigarette 10/29/24 08:58 e-Cigarette/Vaping Use Never Used 10/29/24 08:58 PHQ-9: PHQ-9 Score PHQ-9: Total score 6 10/29/24 09:21 Depression Screening Interpretation: Positive Depression Screening Follow-up: Existing condition and In treatment Thrive Assessment: Date of Thrive Assessment Date Thrive assessed 10/29/24 10/29/24 09:15 Currently or been in a relationship where the following occur: I choose not to answer Const General: healthy appearing, no acute distress, alert and awake Nutritional Appearance: well nourished Orientation/consciousness: oriented to person, oriented to place and oriented to time HENMT Ears: TM's normal bilaterally General nose exam: Normal nasal mucous membranes and turbinates present Eyes Conjunctivae: conjunctivae normal Sclerae: sclerae normal Pupils: Equal, round and reactive pupils present Neck Neck: Yes no lymphadenopathy and Yes no JVD Thyroid: Thyroid normal Carotids: no bruits Resp Effort & Inspection: normal respiratory effort and not tachypneic Auscultation: no crackles, no rales, no rhonchi and no wheezes Cardio Rate: regular rate Rhythm: regular rhythm Heart sounds: no murmurs and normal S1 and S2 GI Palpation (GI): Soft to palpation, nontender, no hepatomegaly and no splenomegaly Auscultation: normal bowel sounds Skin General skin exam: no rashes or lesions noted and dry skin Neuro General: oriented to person, oriented to place and oriented to time Cranial nerves: Yes Equal, round and reactive pupils present Speech: No Abnormal speech present Gait exam (Neuro): Normal gait present Motor exam (neuro): no tremor noted Extrem Right upper extremity: full ROM Left upper extremity: full ROM Right lower extremity: full ROM; no edema Left lower extremity: full ROM; no edema Psych Mental Status: mental status grossly normal Speech and movement: Normal speech and movement present Affect: normal affect Attitude: cooperative Thought process: Normal thought process present Coding Level of Care Code Est Pt Level 4 (27928) Diagnoses Essential hypertension I10 Hypertension type: essential hypertension Tobacco dependence F17.200 Angioedema, sequela T78.3XXS Encounter type: sequela Greater trochanteric bursitis of right hip M70.61 Additional Codes CLEMENT-7 Assessment Billing - CLEMENT-7 Assessment Tool: CLEMENT-7 Assessment 19548 ([id number]) PHQ-9 - 76784 - PHQ-9 Billing: Yes ([id number]) Assessment & Plan Assessment & Plan (1) HTN (hypertension): Code(s): I10 - Essential (primary) hypertension Category: Medical Qualifiers: Hypertension type: essential hypertension Qualified Code(s): I10 - Essential (primary) hypertension Plan: Patient's blood pressure acceptable today in office, has bilateral lower extremity edema. Will discontinue amlodipine for now to see if this is the reason for bilateral lower extremity edema. Consider starting hydrochlorothiazide. She does have furosemide available and will start this on a daily basis to reduce her edema. (2) Tobacco dependence: Code(s): F17.200 - Nicotine dependence, unspecified, uncomplicated Category: Medical Plan: As per HPI patient continues to smoke a few cigarettes per day and does understand she needs to completely quit smoking. She does have access to nicotine replacement (3) Angio-edema: Code(s): T78.3XXA - Angioneurotic edema, initial encounter Category: Medical Qualifiers: Encounter type: sequela Qualified Code(s): T78.3XXS - Angioneurotic edema, sequela Plan: Patient had an episode of angioedema of unclear cause at this time She was treated with IV Benadryl, Pepcid and given epinephrine. (4) Greater trochanteric bursitis of right hip: Code(s): M70.61 - Trochanteric bursitis, right hip Category: Medical Plan: The pain's characteristics align with possible bursitis. Advised usage of ice therapy and NSAIDs. Recommended physical therapy for musculoskeletal support. Muscle relaxants could augment pain relief and improve nighttime rest. Orders: Orders IRON PROFILE 10/29/24 D50.9 - Iron deficiency anemia, unspecified Comprehensive [place]. Panel Fast 10/29/24 I10 - Essential (primary) hypertension Lipid Panel 10/29/24 E78.2 - Mixed hyperlipidemia Complete Blood Count no Diff 10/29/24 J41.0 - Simple chronic bronchitis Medications: Changed From carisoprodol (Soma) 350 mg PO BEDTIME 4 days PRN 4 tabs 0RF muscle pain M54.50 - Low back pain, unspecified To carisoprodol (Soma) 350 mg PO BEDTIME PRN 5 tabs 0RF muscle pain 5 days M54.50 - Low back pain, unspecified Refilled furosemide (Lasix) 40 mg PO DAILY 30 tabs 1RF edema 30 days R60.0 - Localized edema compr.stocking,knee,long,large Need for 10-15 mmHg compression 2 ea 0RF R60.0 - Localized edema Discontinued prednisone Discontinued Reason: Doctor's Order 60 mg (3 x 20 mg) PO DAILY 5 days 15 tabs 0RF On Hold amlodipine Hold Comment: Doctor's Order 5 mg PO DAILY 90 days 90 tabs 1RF I10 - Essential (primary) hypertension
[2024-10-29 09:02] VITALS: BP 102/58; PULSE 79; TEMP 36.4; O2SAT 97; BMI 32.8
== END 2024-10-29 10:08 | disposition home or self-care (01) ==
LOC: HO.HMCH 08:38
PROVIDERS: PCP Physician Assistant; Visit Provider Physician Assistant
DX: I10 Essential (primary) hypertension (principal); F17.200 Nicotine dependence, unspecified, uncomplicated; T78.3XXS Angioneurotic edema, sequela; M70.61 Trochanteric bursitis, right hip

== ENCOUNTER → 2024-10-29 08:37 | Outpatient (BNVA) | payer OTHER, SELFPAY | PROVIDERS: PCP Physician Assistant; Visit Provider Physician Assistant | DX: I10 Essential (primary) hypertension (principal); T78.3XXD Angioneurotic edema, subsequent encounter; M70.61 Trochanteric bursitis, right hip; F17.210 Nicotine dependence, cigarettes, uncomplicated; F41.9 Anxiety disorder, unspecified; E78.5 Hyperlipidemia, unspecified; F11.20 Opioid dependence, uncomplicated; R60.0 Localized edema; F32.9 Major depressive disorder, single episode, unspecified; Z13.31 Encounter for screening for depression; Z13.30 Encounter for screening examination for mental health and behavioral disorders, unspecified | CPT/HCPCS: 96127; 99212 ==

== ENCOUNTER 2024-11-26 08:08 | Outpatient (REF) | payer OTHER, SELFPAY ==
--- OUTSIDE RECORDS SUMMARY | 2024-11-26 08:15 | XMS_ITS | Clinical Summary ---
Author Organization [employer] Address [address] [facility] [address] [place] [address] Care Team Providers Care Inpatient Pharmacist Name Role Phone Unavailable Primary Care Provider [...] 08/20/2020 Tobacco Screening 08/10/2024 08/11/2023 Influenza Vaccine (#1) 2025 DTaP/Tdap/Td Vaccines (2 - T d [...] this topic Insurance [place] ST[place] AD[place] [facility]
[2024-11-26 08:50] LABS: Hematocrit 38.5 % (37.0-47.0); Hemoglobin 12.2 g/dl (12.0-16.0); Mean Corpuscular HGB Conc 31.7 g/dl (31.0-35.0); Mean Corpuscular Hemoglobin 28.0 pg (27.0-33.0); Mean Corpuscular Volume 88.5 fL (80.0-98.0); NRBC Abs Auto 0.000 X10*3/uL (0.0-0.012); NRBC Pct Auto 0.0 /100WBC (0.0-0.2); Platelet Count 308 X10*3/uL (160-400); Red Blood Count 4.35 X10*6/uL (4.20-5.50); White Blood Count 5.6 X10*3/uL (4.8-10.8)
[2024-11-26 09:22] LABS: Appearance Urine Cloudy; Glucose Urine UA Negative (Negative); PH 6.0 (5.0-9.0); Specific Gravity - Urine 1.015 (1.005-1.025); UMIC TRIGGER UACC YES
[2024-11-26 09:26] LABS: UACC Culture Trigger YES
[2024-11-26 10:19] LABS: Alanine Aminotransferase 30 U/L (0-31); Albumin Level 4.6 g/dL (3.5-5.0); Alkaline Phosphatase 115 U/L (39-117); Anion Gap 14 (12-20); Aspartate Amino Transferase 30 U/L (5-31); Blood Urea Nitrogen 13 mg/dL (9-16); Calcium 8.9 mg/dL (8.4-10.2); Carbon Dioxide 27 mmol/L (22-29); Chloride 104 mmol/L (96-108); Cholesterol 176 mg/dL (<200); Estimated Glomerular Filt Rate 54; HDL Cholesterol 29 mg/dL (>40); Iron 58 mcg/dL (30-160); Percent Iron Saturation 18 % (15-50); Potassium 4.0 mmol/L (3.3-5.1); Sodium 141 mmol/L (135-145); Total Iron Binding Capacity 319 mcg/dL (228-428); Total Protein 7.5 g/dL (6.5-8.0); Triglycerides 233 mg/dL (<150); Unsaturated Iron Binding 261 ug/dL
== END 2024-11-26 08:09 | disposition home or self-care (01) ==
LOC: HO.LAB 08:08
PROVIDERS: PCP Physician Assistant; Visit Provider Physician Assistant
DX: J41.0 Simple chronic bronchitis (principal); D50.9 Iron deficiency anemia, unspecified; I10 Essential (primary) hypertension; N17.9 Acute kidney failure, unspecified; E78.2 Mixed hyperlipidemia; R39.9 Unspecified symptoms and signs involving the genitourinary system
CPT/HCPCS: 36415; 80053; 80061; 81001; 81003; 83540; 85027; 87086

== ENCOUNTER 2024-12-07 16:10 | Outpatient (AMB) | payer OTHER, SELFPAY ==
--- NOTE | 2024-12-07 16:11 | A.OFFVIS_ITS ---
Intake Visit Reasons: MAT/ Per Dr. Tuttle Allergies lisinopril Allergy (Severe, Verified 12/07/24 16:14) swolen toung codeine (CODEINE) Allergy (Mild, Verified 12/07/24 16:14) RASH varenicline (From Chantix) Allergy (Unknown, Verified 12/07/24 16:14) headaches amlodipine Adverse Reaction (Intermediate, Verified 12/07/24 16:14) lower extremity edema venlafaxine (From Effexor) Adverse Reaction (Mild, Verified 12/07/24 16:14) gi upset HPI HPI MAT/ Per Dr. Tuttle: Details: She is doing well and has been using Suboxone. [facility] Medical History GERD (gastroesophageal reflux disease) Opioid dependence Anxiety History of chronic back pain Hx of alopecia History of opioid abuse Depression Hyperlipidemia Right lumbar radiculopathy Bipolar 1 disorder Surgical History History of oral surgery Hx of tubal ligation History of carpal tunnel release of both wrists Family History Father No problems noted. Mother Heart disease Diabetes Brother Heart disease Brother Heart disease Sister Diabetes Social History Housing: House Are you a primary healthcare advisory services manager to a significant other at home: No Alcohol intake: never Patient Tobacco Use Status: Former Tobacco user Tobacco use type: Cigarette Cigarettes Per Day: 0 Years Smoked: 40 +/- e-Cigarette/Vaping Use: Never Used Second Hand Smoke Exposure: No service: No Current occupational status: unemployed Cognitive needs: No Hearing needs: No Vision needs: No Review of Systems Const All systems reviewed & are unremarkable except as noted in HPI and below Telehealth Telehealth Telehealth Platform: Telephone Location of provider rendering services: practice address Location of patient: address on file Telehealth method: voice only Minutes spent on Phone/Video with Pt.: 20 Assessment & Plan Assessment & Plan (1) Opioid dependence: Comment: She is doing well Code(s): F11.20 - Opioid dependence, uncomplicated Category: Medical Qualifiers: Substance use status: uncomplicated Qualified Code(s): F11.20 - Opioid dependence, uncomplicated Plan: Continue 8/2 mg bid See in two months in person. Medications: New buprenorphine-naloxone 8-2 mg (Suboxone) 1 film sublingual BID 60 ea 1RF 30 days Coding Level of Care Code Est Pt Level 3 (31877) Diagnoses Uncomplicated opioid dependence F11.20 Substance use status: uncomplicated
== END 2024-12-07 16:20 | disposition home or self-care (01) ==
LOC: HO.HCC 16:11
PROVIDERS: PCP Physician Assistant; Visit Provider Internal Medicine
DX: F11.20 Opioid dependence, uncomplicated (principal)
CPT/HCPCS: 99213

== ENCOUNTER → 2024-12-07 16:10 | Outpatient (BNVA) | payer OTHER, SELFPAY | PROVIDERS: PCP Physician Assistant; Visit Provider Internal Medicine | DX: F11.20 Opioid dependence, uncomplicated (principal); Z79.899 Other long term (current) drug therapy | CPT/HCPCS: 99212 ==

== ENCOUNTER 2025-02-08 10:02 | Outpatient (AMB) | payer OTHER, SELFPAY ==
--- NOTE | 2025-02-08 10:14 | A.OFFVIS_ITS ---
Vital Signs 02/08/25 10:15 Height 5 ft 2 in Weight 189 lb BMI 34.6 Pulse 108 H Pulse Source Pulse Oximeter Pulse Oximetry (%) 95 Oxygen Delivery Method Room Air Intake Visit Reasons: Mat Allergies lisinopril Allergy (Severe, Verified 02/08/25 10:21) swolen toung codeine (CODEINE) Allergy (Mild, Verified 02/08/25 10:21) RASH varenicline (From Chantix) Allergy (Unknown, Verified 02/08/25 10:21) headaches amlodipine Adverse Reaction (Intermediate, Verified 02/08/25 10:21) lower extremity edema venlafaxine (From Effexor) Adverse Reaction (Mild, Verified 02/08/25 10:21) gi upset HPI Comments Details: Patient was informed and verbally consented to the use of an ambient scribe for clinic note documentation during this visit. Patient Instructions History of Present Illness The patient is a 64-year-old female presenting for follow-up of opioid use disorder. She is undergoing treatment with Suboxone 8/2 milligrams twice daily and is managing well under this regimen. She denies experiencing constipation, indicating that the treatment is well-tolerated with adherence to scheduled dosing. The patient denies any current symptoms of depression or suicidal ideation and states there is no need for counseling or peer support services at this time. She notes stable vital signs and feels stable on her current medication plan for opioid use disorder. Review of Systems - Psychiatric: Denies depression, denies suicidal ideation. - Gastrointestinal: Reports no constipation. - General: Reports stable condition, no issues with medication adherence. Physical Exam - General- Vital signs stable Results Plan Patient was informed and verbally consented to the use of an ambient scribe for clinic note documentation during this visit. 1. Opioid use, unspecified, uncomplicated F11.90 The patient reports effective management of opioid use disorder with Suboxone 8/2 milligrams BID, experiencing no adverse effects. Continued use is advised with a follow-up in three months. A one-month supply with two refills is provided, and Dulcolax is continued for constipation maintenance. 2. Depression, unspecified F32.A The patient denies current symptoms of depression and does not require additional interventions at this time. Routine monitoring and follow-up with primary care will suffice. Discussion Notes During our conversation, I confirmed the management of the patient's opioid use disorder with her continued use of Suboxone 8/2 milligrams twice daily. I discussed the importance of medication adherence and potential side effects. We reviewed her mental health status, confirming no current depressive symptoms or need for counseling. I instructed her to maintain her prescribed regimen, provided a one-month supply with two refills, and advised a follow-up in three [facility]. We also discussed the use of Dulcolax for constipation, though she reports no issues currently. The patient expressed understanding and agreement with the plan. Medical Decision Making In approaching this case, the focus was on the continuation and effectiveness of the current treatment regimen for opioid use disorder. By confirming the absence of side effects such as constipation and ensuring stable mental health without depression or suicidal ideation, the decision to maintain the existing Suboxone dosage was supported. The plan facilitates continued monitoring and addresses any potential constipation with the optional use of Dulcolax. Given the patient's report of stability and adherence, reliance on close patient follow-up will ensure ongoing evaluation of her condition and satisfaction with treatment. Ensuring the appropriate follow-up plan for her opioid use disorder allows for timely adjustments if needed, with acknowledgment of her denial of depression ruling out the necessity for psychiatric interventions at this time. Patient Instructions - Continue taking Suboxone 8/2 milligrams twice daily as prescribed. - Use Dulcolax as needed for constipation. - Attend the follow-up appointment in three months. - Contact your healthcare provider if experiencing any new or worsening symptoms. - Maintain the current regimen of avoiding counseling services unless symptoms change or mood deteriorates. [facility] Medical History GERD (gastroesophageal reflux disease) Opioid dependence Anxiety History of chronic back pain Hx of alopecia History of opioid abuse Depression Hyperlipidemia Right lumbar radiculopathy Bipolar 1 disorder Surgical History History of oral surgery Hx of tubal ligation History of carpal tunnel release of both wrists Family History Father No problems noted. Mother Heart disease Diabetes Brother Heart disease Brother Heart disease Sister Diabetes Social History Housing: House Are you a primary child adolescent care to a significant other at home: No Alcohol intake: never Patient Tobacco Use Status: Former Tobacco user Tobacco use type: Cigarette Cigarettes Per Day: 0 Years Smoked: 40 +/- e-Cigarette/Vaping Use: Never Used Second Hand Smoke Exposure: No service: No Current occupational status: unemployed Cognitive needs: No Hearing needs: No Vision needs: No Physical Exam Vital Signs: Last Vital Signs Pulse 108 H 02/08/25 10:15 Pulse Ox 95 02/08/25 10:15 Oxygen Delivery Method Room Air 02/08/25 10:15 BMI result Body Mass Index 34.6 Assessment & Plan Assessment & Plan (1) Opioid dependence: Comment: She is doing well Code(s): F11.20 - Opioid dependence, uncomplicated Category: Medical Qualifiers: Substance use status: uncomplicated Qualified Code(s): F11.20 - Opioid dependence, uncomplicated Plan: na Plan na Medications: New buprenorphine-naloxone 8-2 mg (Suboxone) 1 film sublingual BID 60 ea 2RF 30 days Coding Level of Care Code Est Pt Level 3 (08250) Diagnoses Uncomplicated opioid dependence F11.20 Substance use status: uncomplicated
[2025-02-08 10:15] VITALS: PULSE 108; O2SAT 95; BMI 34.6
--- OUTSIDE RECORDS SUMMARY | 2025-02-08 10:36 | XMS_ITS | Clinical Summary ---
Author Organization [employer] Address [address] [place] [address] Care Team Providers Care Psychiatric Security Nurse Name Role Phone Unavailable Primary Care Provider [...] (2 of 2 - PCV) 03/05/2022 03/05/2021 Tobacco Screening 08/10/2024 08/11/2023 COVID-19 Vaccine (4 - 2024-2 6 season) 2025 03/31/2022, 10/08/2021, 08/20/2020 Influenza Vaccine (#1) 2025 DTaP/Tdap/Td Vaccines (2 [...] this topic Insurance [place] ADULT [facility]
== END 2025-02-08 11:01 | disposition home or self-care (01) ==
PROVIDERS: PCP Physician Assistant; Visit Provider Internal Medicine
DX: F11.20 Opioid dependence, uncomplicated (principal)
CPT/HCPCS: 99213

== ENCOUNTER → 2025-02-08 10:02 | Outpatient (BNVA) | payer OTHER, SELFPAY | PROVIDERS: PCP Physician Assistant; Visit Provider Internal Medicine | DX: F11.20 Opioid dependence, uncomplicated (principal) | CPT/HCPCS: 99212 ==

== ENCOUNTER 2025-05-20 10:16 | Outpatient (AMB) | payer OTHER, SELFPAY ==
--- NOTE | 2025-05-20 10:29 | MHC.AM.SUB ---
Vital Signs 05/20/25 10:30 BP 138/76 Pulse 88 Pulse Oximetry (%) 96 Intake Visit Reasons: MAT Allergies lisinopril Allergy (Severe, Verified 05/20/25 10:30) swolen toung codeine (CODEINE) Allergy (Mild, Verified 05/20/25 10:30) RASH varenicline (From Chantix) Allergy (Unknown, Verified 05/20/25 10:30) headaches amlodipine Adverse Reaction (Intermediate, Verified 05/20/25 10:30) lower extremity edema venlafaxine (From Effexor) Adverse Reaction (Mild, Verified 05/20/25 10:30) gi upset HPI Comments Details: History of Present Illness The patient is a 64 year old female presenting with follow-up for opioid use disorder. She is being treated with buprenorphine/naloxone 8/2 mg, one sublingual tablet twice daily, and reports that this regimen is working well. She denies cravings, constipation, or depression. She reports new onset of vaginal bleeding and left leg swelling. She was advised to go to the emergency room for these symptoms but has expressed a desire to wait until her primary care appointment. Results - Urine toxicology screen showed buprenorphine. - Fentanyl screen is pending. Review of Systems Narrative Review of Systems - Psychiatric: Denies cravings and depression. - Gastrointestinal: Denies constipation. - Genitourinary: Reports vaginal bleeding. - Musculoskeletal: Reports left leg swelling. Physical Exam Exam Exam: Physical Exam - General: Vital signs are stable. Vital Signs: Last Vital Signs Pulse 88 05/20/25 10:30 BP 138/76 05/20/25 10:30 Pulse Ox 96 05/20/25 10:30 Results AMB 14 Panel Urine Drug Screen Urine Marijuana (THC) Negative Last Edit by Spencer Pennington CMA on 05/20/25 10:44 Urine Cocaine Negative Last Edit by Spencer Pennington CMA on 05/20/25 10:44 Urine Morphine Negative Last Edit by Spencer Pennington CMA on 05/20/25 10:44 Urine Methamphetamine Negative Last Edit by Spencer Pennington CMA on 05/20/25 10:44 Urine Amphetamine Negative Last Edit by Spencer Pennington CMA on 05/20/25 10:44 Urine Benzodiazepine Negative Last Edit by Spencer Pennington CMA on 05/20/25 10:44 Urine Barbiturates Negative Last Edit by Spencer Pennington, PIPPA on 05/20/25 10:44 Urine Methadone Negative Last Edit by Spencer Pennington, PIPPA on 05/20/25 10:44 Urine Buprenorphine Positive Last Edit by Spencer Pennington, PIPPA on 05/20/25 10:44 Urine Tricyclic Antidepressant Negative Last Edit by Spencer Pennington, PIPPA on 05/20/25 10:44 Urine MDMA Negative Last Edit by Spencer Pennington, PIPPA on 05/20/25 10:44 Urine Oxycodone Negative Last Edit by Spencer Pennington, PIPPA on 05/20/25 10:44 Urine Phencyclidine Negative Last Edit by Spencer Pennington, PIPPA on 05/20/25 10:44 Urine Propoxyphene Negative Last Edit by Spencer Pennington, PIPPA on 05/20/25 10:44 PFS Medical History GERD (gastroesophageal reflux disease) Opioid dependence Anxiety History of chronic back pain Hx of alopecia History of opioid abuse Depression Hyperlipidemia Right lumbar radiculopathy Bipolar 1 disorder Surgical History History of oral surgery Hx of tubal ligation History of carpal tunnel release of both wrists Family History Father No problems noted. Mother Heart disease Diabetes Brother Heart disease Brother Heart disease Sister Diabetes Social History Housing: House Are you a primary childcare administrator to a significant other at home: No Alcohol intake: never Patient Tobacco Use Status: Former Tobacco user Tobacco use type: Cigarette Cigarettes Per Day: 0 Years Smoked: 40 +/- e-Cigarette/Vaping Use: Never Used Second Hand Smoke Exposure: No service: No Current occupational status: unemployed Cognitive needs: No Hearing needs: No Vision needs: No Assessment & Plan Assessment & Plan (1) Opioid dependence: Comment: She is doing well Code(s): F11.20 - Opioid dependence, uncomplicated Category: Medical Qualifiers: Substance use status: uncomplicated Qualified Code(s): F11.20 - Opioid dependence, uncomplicated Plan Plan Patient was informed and verbally consented to the use of an ambient scribe for clinic note documentation during this visit. 1. Opioid use, unspecified, uncomplicated F11.90 The patient is doing well on her current medication regimen for opioid use disorder and denies cravings. She will continue taking buprenorphine/naloxone 8/2 mg twice daily. A prescription for 60 tablets with 2 refills will be provided. She will follow up in three months. 2. Left Leg Swelling And Vaginal Bleeding The patient has new onset of left leg swelling and vaginal bleeding, which are potentially life-threatening. I strongly advised her to go to the emergency room to rule out severe conditions such as DVT, anemia, and endometrial problems. The patient is scheduled to see her primary care provider next week. Discussion Notes I confirmed with the patient that she is doing well with her opioid use disorder treatment on buprenorphine/naloxone and is not experiencing cravings. I discussed her new symptoms of vaginal bleeding and left leg swelling, and I strongly advised her to go to the emergency room for evaluation, explaining that these symptoms could be life-threatening. I informed her of the need to rule out serious issues like DVT, anemia, and endometrial problems. The patient acknowledged my recommendation but expressed hesitation due to transportation concerns. We agreed to continue her current medication and to follow up in three months, reinforcing the urgency of addressing her other medical issues. Medical Decision Making This is a 64-year-old female with opioid use disorder who is stable on buprenorphine/naloxone 8/2 mg BID. She reports no cravings, and her urine toxicology screen confirms adherence with buprenorphine. The primary concern during this visit is her new onset of left leg swelling and vaginal bleeding. Given the potential for life-threatening diagnoses such as deep vein thrombosis (DVT) for the leg swelling and endometrial pathology for the postmenopausal bleeding, I strongly recommended immediate evaluation in an emergency department. Although she has an upcoming primary care appointment, the acute nature of these symptoms warrants urgent assessment. The patient has transportation challenges but stated she would consider this recommendation. The plan is to continue her stable buprenorphine/naloxone regimen and have her follow up in three months, with the [facility] to seek immediate care for her other pressing medical issues. Patient Instructions - Continue to take one tablet of buprenorphine/naloxone 8/2 mg under your tongue twice a day. - I am sending a prescription for 60 tablets with 2 refills to your pharmacy. - It is very important that you go to the emergency room as soon as possible for your left leg swelling and vaginal bleeding, as these could be signs of a serious health problem. - Keep your appointment with your primary care doctor, Dr. Narayan Clifton, next week. - Schedule a follow-up appointment with me in three months. Orders: Orders AMB 14 Panel Urine Drug Screen Today Z51.81 - Encounter for therapeutic drug level monitoring Fentanyl, urine Today F11.20 - Opioid dependence, uncomplicated Medications: New buprenorphine-naloxone 8-2 mg (Suboxone) 1 film sublingual BID 60 ea 2RF 30 days
[2025-05-20 10:30] VITALS: BP 138/76; PULSE 88; O2SAT 96
--- OUTSIDE RECORDS SUMMARY | 2025-05-20 11:35 | XMS_ITS | Clinical Summary ---
Author Organization [employer] Address [address] [place] [address] Care Team Providers Care Pest Control Chemical Technician Name Role Phone Unavailable Primary Care Provider [...] this topic Insurance [place] ST[place] AD[place] [facility]
== END 2025-05-20 10:54 | disposition home or self-care (01) ==
LOC: HO.HCC 10:16
PROVIDERS: PCP Physician Assistant; Visit Provider Internal Medicine
DX: F11.20 Opioid dependence, uncomplicated (principal); Z51.81 Encounter for therapeutic drug level monitoring
CPT/HCPCS: 99213

== ENCOUNTER 2025-05-20 10:16 | Outpatient (REF) | payer OTHER, SELFPAY | END 2025-05-20 10:17 | disposition home or self-care (01) | LOC: HO.LNP 10:16 | PROVIDERS: PCP Physician Assistant; Visit Provider Internal Medicine | DX: F11.20 Opioid dependence, uncomplicated (principal); Z51.81 Encounter for therapeutic drug level monitoring; Z79.899 Other long term (current) drug therapy | CPT/HCPCS: 80307; 99212 ==